=== PATIENT | female | born 1965 | race Caucasian/White ===

== ENCOUNTER 2019-04-07 06:51 | Outpatient (CLI) | payer MEDICARE, SELFPAY ==
--- NOTE | 2019-04-07 07:02 | USCV_ITS ---
Linda Frank Age: 53 Gender: F : 1965 Exam Date: 04/07/2019 07:36 Ordering Phys: Maryan Altamirano MD ([email or web address]) Technologist: Kentrell Sheikh Exam Location: [facility] – [place] Indication: PVD, LOWER EXTREMITY CLAUDICATION RIGHT LEFT Brachial 81.00 mmHg Brachial 112.00 mmHg Pressure (mmHg) Waveform Pressure (mmHg) Waveform 136.00 MOTION PICTURE CAMERA LENS TECHNICIAN 125.00 116.00 DPA 128.00 1.21 Ankle/Brachial Index 1.14 115.00 Pre-Exercise Toe Pressure 124.00 1.00 Pre-Exercise Toe/Brachial Index 1.10 FINDINGS Normal resting ABIs bilaterally Normal resting TBIs bilaterally CONCLUSIONS No evidence of any significant arterial obstruction in the lower extremities, based on the above findings Dr Lars Moreland MD FAC (Electronically Signed) Final Date: 09 April 2019 18:21 S
--- NOTE | 2019-04-07 07:15 | USCV_ITS ---
Linda Frank Age: 53 Gender: F : 1965 Exam Date: 04/07/2019 07:10 Ordering Phys: Maryan Altamirano MD ([email or web address]) Technologist: Padmini Hope Exam Location: [facility] [place] Indication: HCM BP: / HR: 76 Rhythm: Sinus Technical Quality: Suboptimal MEASUREMENTS (Male / Female) Normal Values 2D ECHO LVOT Diameter 2.0 cm LV Ejection Fraction MOD 2C 78.0 % LV Ejection Fraction 2C AL 81.0 % LA Diameter 2.9 cm LA Width 2.7 cm LA Height 4.5 cm RA Width 2.4 cm RA Height 3.3 cm Aorta at Sinotubular Diameter 2.8 cm M-MODE LV Diastolic Diameter MM 3.8 cm 4.2 - 5.9 / 3.9 - 5.3 cm LV Systolic Diameter MM 1.9 cm LV Ejection Fraction MM Teich 82.5 % IVS Diastolic Thickness MM 1.4 cm 0.6 - 1.0 / 0.6 - 0.9 cm IVS Systolic Thickness MM 2.1 cm LVPW Diastolic Thickness MM 1.2 cm 0.6 - 1.0 / 0.6 - 0.9 cm LVPW Systolic Thickness MM 1.8 cm Aortic Annulus Diameter 2.8 cm LA Ao Ratio MM 1.1 MV E Point Septal Separation 0.4 cm DOPPLER AV Peak Velocity 178.0 cm/s LVOT Peak Velocity 271.0 cm/s AV Area Cont Eq vti 4.4 cm squared AV Area Cont Eq pk 4.9 cm squared MV Area PHT 2.8 cm squared Mitral E to A Ratio 1.3 MV E' Velocity 11.0 cm/s Mitral E to MV E' Ratio 9.8 Mitral E to LV E' Lateral Ratio 9.0 Mitral E to LV E' Septal Ratio 10.8 TV Peak E Velocity 74.0 cm/s Right Atrial Pressure 3.0 mmHg PV Peak Velocity 97.0 cm/s RV Acceleration Time 0.1 s RV Ejection Time 0.3 s RV AcT/ET 0.4 FINDINGS Left Ventricle Normal left ventricular cavity size. Severe left ventricular hypertrophy of concentric. No regional wall motion abnormalities. Left ventricular ejection fraction is estimated at 75 %. There appeared to be systolic anterior motion of mitral valve with LVOT obstruction.Grade I/IV diastolic dysfunction (abnormal relaxation filling pattern), normal to mildly elevated filling pressures. Baseline pressure gradient across the LVOT noted to be 29 mmHg at rest which increased to 64 mmHg with Valsalva. Right Ventricle The right ventricle is normal in size and function. Right Atrium The right atrium is normal in size. Left Atrium The left atrium is normal in size. Mitral Valve Mildly thickened mitral valve. No mitral valve stenosis. Mild mitral valve regurgitation directed posteriorly due to systolic anterior motion of anterior mitral valve leaflet. Aortic Valve Structurally normal aortic valve without significant sclerosis or stenosis. There is no aortic regurgitation. Tricuspid Valve Structurally normal tricuspid valve without significant stenosis or regurgitation. Pulmonary artery systolic pressure is normal. Pulmonic Valve Structurally normal pulmonic valve without significant stenosis. There is no pulmonic regurgitation. Pericardium Normal pericardium without effusion. Aorta Normal ascending aorta dimension. CONCLUSIONS 1-Normal left ventricular cavity size. Severe left ventricular hypertrophy of concentric. No regional wall motion abnormalities. Left ventricular ejection fraction is estimated at 75 %. There appeared to be systolic anterior motion of mitral valve with LVOT obstruction.Grade I/IV diastolic dysfunction (abnormal relaxation filling pattern), normal to mildly elevated filling pressures. Baseline pressure gradient across the LVOT noted to be 29 mmHg at rest which increased to 64 mmHg with Valsalva. 2-Mildly thickened mitral valve. No mitral valve stenosis. Mild mitral valve regurgitation directed posteriorly due to systolic anterior motion of anterior mitral valve leaflet. 3-Structurally normal aortic valve without significant sclerosis or stenosis. There is no aortic regurgitation. 4-Pulmonary artery systolic pressure is within normal limits. 5-Right atrial pressure is around 5 mm of mercury. 6- When compared to the prior echocardiogram dated 06/30/2017 there is severe left ventricle hypertrophy with systolic anterior motion of mitral valve resulting in LVOT obstruction as noted above. Maryan Altamirano MD (Electronically Signed) Final Date: 07 April 2019 11:57 S
[2019-04-07] MEDS: iohexol 350 mg/mL 100 mL Btl IV (08:19)
--- NOTE | 2019-04-07 08:30 | CT_ITS ---
WS: [id number] CTA THORACIC TECHNIQUE: Contrast enhanced CTA of the thoracic aorta with coronal and sagittal reformatted images a nd maximum intensity projection (MIP) images. CLINICAL INFORMATION: Severe claudication of right hand COMPARISON: CTA chest 3 DLP: 919.[address] scans at [facility] use at least one of these dose optimization techniques: automat ed exposure control; mA and/or kV adjustment per patient size (includes targeted exams where dose is matched to clinical indication); or iterative reconstruction. FINDINGS: Axillary to axillary bypass graft. No contrast visualized in the axillary bypass graft which is likel y occluded. Contrast is visualized in the right axillary and subclavian arteries. The left axillary a nd subclavian arteries appear patent. Severe stenosis at the innominate origin off the aortic arch. Innominate proximal to the carotid and subclavian bifurcation appears patent. Normal caliber thoracic aorta. Mild atheromatous disease descending thoracic aorta and upper abdomina l aorta. No mediastinal or hilar lymphadenopathy. Coronary calcification. Mild chronic emphysematous changes. No acute pulmonary infiltrates. Diffuse fatty infiltration liver. Hepatomegaly. Cholecystectomy clips. Adrenal glands are normal. Celiac and SMA origins appear patent . CT/CT angio chest [id number] IMPRESSION: 1. Axillary axillary bypass graft appears occluded. This is new since 2014. Khalil bclavian and axillary arteries appear patent bilaterally 2. High-grade stenosis proximal innominate artery just distal to the root orig in. Persistent flow in the innominate artery proximal to the bifurcation. 3. Mild chronic emphysematous changes. Both lungs are well aerated. 4. Hepatomegaly with diffuse fatty infiltration. 5. Cholecystectomy. 6. Normal caliber thoracic aorta.
== END 2019-04-07 06:52 | disposition home or self-care (01) ==
LOC: RAD 06:55
PROVIDERS: Family Provider Family Medicine; PCP Family Medicine; Visit Provider Internal Medicine Cardiovascular Disease
DX: I73.9 Peripheral vascular disease, unspecified (principal); I77.1 Stricture of artery; I42.1 Obstructive hypertrophic cardiomyopathy; J43.9 Emphysema, unspecified; K76.0 Fatty (change of) liver, not elsewhere classified; I34.0 Nonrheumatic mitral (valve) insufficiency; Z90.49 Acquired absence of other specified parts of digestive tract
CPT/HCPCS: 71275; 93306; 93922

== ENCOUNTER → 2019-04-13 12:32 | Outpatient (BNVA) | payer MEDICARE, SELFPAY | PROVIDERS: Family Provider Family Medicine; PCP Family Medicine; Visit Provider Nurse Practitioner Family | DX: T82.858A Stenosis of other vascular prosthetic devices, implants and grafts, initial encounter (principal); I73.9 Peripheral vascular disease, unspecified; X58.XXXA Exposure to other specified factors, initial encounter | CPT/HCPCS: 80048; 85025 ==

== ENCOUNTER → 2019-04-19 11:00 | Outpatient (BNVA) | payer MEDICARE, SELFPAY | PROVIDERS: Family Provider Family Medicine; PCP Family Medicine; Visit Provider Internal Medicine Cardiovascular Disease | DX: T82.858A Stenosis of other vascular prosthetic devices, implants and grafts, initial encounter (principal) | CPT/HCPCS: 85025 ==

== ENCOUNTER 2019-04-24 08:41 | Observation (INO) | payer MEDICARE, SELFPAY ==
[2019-04-24] VITALS (16 sets, daily range): BP systolic 81–122; BP diastolic 45–84; PULSE 67–78; RESP 15–21; TEMP 36.8; O2SAT 93; BMI 32.2
--- NOTE | 2019-04-24 09:15 | PC.NURSE ---
PATIENT STATES SHE HAS IBS AND HER BOWEL PATTERNS VARY DAY TO DAY.
--- NOTE | 2019-04-24 10:00 | XACV_ITS ---
Ht: 160 cm Wt: 83 kg BSA: 1.95 m2 Any Known Allergies: Other Gender: Female : 1965 Exam Type: Invasive Peripheral Vascular Procedure(s): Procedure Description: Peripheral Cath Diagnostic Procedure Procedure Description: Abdominal aortic angiography Procedure Description: Subclavian Angiography Procedure Description: Aortic Arch Angiography Exam Priority: Routine Conclusions Coronary angiogram #1 N ormal left main #2 LAD has luminal irregularities#3 LCx has luminal irregularities#4 RCA has luminal irregularities with 3 0% mid stenosis. Peripheral angiogramAortogram was performed showing normal ascending aortaRight innominate artery was selectively engaged which showed significant proximal 85-90% stenosis in the proximal segment.Abdominal aortogram 1- Abdominal aorta has luminal irregularity without significant stenosis or aneurysm. 2-Bilateral renal artery has no significant stenosis 3- right common iliac did not show any significant stenosis4- Left common ostial significant 80% stenosis. Significant 66 mm gradient across it was observed.Left leg peripheral angiogram most consistent with no significant stenosis in the left external/internal iliac artery, no significant stenosis in left common femoral, SFA, profunda, popliteal, tibioperoneal trunk arteries. 3 vessel runoff was noted below the knee however it appeared to me that posterior tibial is occluded in the proximal segment with reconstitute in the mid. 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 CT scan was consistent with occlusion of the graft. It is the reason she saw us. She is also giving history of shortness of breath and chest pressure for which she underwent left heart CATHETERIZATION. During the same angiogram abdominal aortic angiogram was noted with runoff due to lifestyle limiting claudication of the leg revealed left ostial common iliac significant disease. Recommendations Usual post catheterization care. Follow-up with Dr. Colon and Dr. Altamirano. We will discuss with Dr. Colon regarding percutaneous versus grafting. Hemodynamic Data Phase:Rest AO : 146.0 mmHg / 67.0 mmHg ( 97.0 mmHg ) @ 5:55:00 AM 144.0 mmHg / 66.0 mmHg ( 96.0 mmHg ) @ 5:55:00 AM 119.0 mmHg / 73.0 mmHg ( 95.0 mmHg ) @ 5:57:00 AM 75.0 mmHg / 61.0 mmHg ( 67.0 mmHg ) @ 6:33:00 AM 74.0 mmHg / 56.0 mmHg ( 71.0 mmHg ) @ 6:34:00 AM 136.0 mmHg / 59.0 mmHg ( 87.0 mmHg ) @ 6:36:00 AM Access Site Site: Right Femoral artery Sheath Size: 6 Fr Hemost... Success: Unsuccessful Site: Right Femoral artery Sheath Size: 6 Fr Hemost... Method: Manual Compression Hemost... Success: Successful Procedure Details Findings wire out. wire out. glidewire inserted. runoff of the left leg, 10mL/sec for a total of 30mL. [facility] time/date stamp having technical issues. All documentation and procedure done between 3789-3746 on 04-24-2019. Procedure Consent Obtained. Admit Source: In Patient. Pre-Procedure Time Out. Identified patient by full name and date of as verbalized by the patient/guarantor. Does the consent match the physician's order: Yes. Accurate & Complete Informed Consent: Yes. Inpatient/Outpatient History & Physical on Chart: Yes. If H&P is completed, is and addenduem needed: N/A; If yes, is the addendum complete: N/A. Visualize and Verify Site with Patient/Guarantor: N/A. Relevant Radiology Images available: N/A. Pre-op teaching completed and patient verbalized understanding. The risks, benefits, and alternatives of sedation and/or procedure were discussed by physician. The patient agrees to continue. Procedure started. Correct patient, site and procedure confirmed by cath team. PERRLA. Strong, equal hand barrel loader and cleaner bilaterally. Lungs clear x 5 lobes. IV Site on Arrival: 20 gauge in the left anticubital. Pre Procedural Pulses: bilateral dorsalis pedis was 1+. Pre Procedural Pulses: right posterior tibial was 1+. Pre Procedural Pulses: left posterior tibial was Doppled. Pre Procedural Pulses: right radial was Absent. Pre Procedural Pulses: left radial was 1+. Oxygen started at 2liters/min via nasal canula. bilateral groins was prepped with chloroprep then draped in the usual sterile fashion. Baseline sample Acquired. HR: 60 BPM. Physician notified. Physician arrived. Physician scrubbed in. Immediate Pre-Procedure Time Out. Correct Patient: Yes; Correct Procedure: Yes; Correct Site: Yes; Correct Patient Position: Yes; Correct Supplies: Yes; Dried Flammable Prep: Yes; Blood Products Available: N/A;. Lidocaine 1% infiltrated to the right groin. Arterial access obtained with micropuncture set. A 5 [place] citizen JL4 catheter in over wire. Multiple views taken of left coronary artery. Catheter out. A 5 [place] citizen JR4 catheter in over wire. EDP Sample taken: LV 121/-4,2; HR: 114 BPM; SpO2: 97%. Pullback taken: LV 147/-4,14; AO 146/67(97); Mean: 0mmHg, Peak to Peak: 0mmHg, SEP: 9sec/min; HR: 84 BPM; SpO2: 97%. Multiple views taken of right coronary artery. A 5 [place] citizen Angled Pig catheter in over wire. Aortic arch arteriogram performed in MAR @ 15 ml/sec for a total of 30 mL. A 6 [place] citizen Angled Pig catheter in over wire. Aortic arch arteriogram performed in MAR @ 20 ml/sec for a total of 40 mL. Abdominal aortogram performed in AP @ 10 mL/sec for a total of 30 mL. Sheath(s) removed and manual pressure held until hemostasis was achieved. Sterile 4x4 and Op-site applied to the puncture site. No oozing or hematoma noted. Post sheath removal instructions were given and the patient verbalized understanding. Post Procedure: Pulses reassessed and unchanged. PERRLA. Strong, equal hand barrel loader and cleaner bilaterally. No VTE prophylaxis required. Medication's Wasted: Heparin = 1000 units. Medication's Wasted: Other = versed 1 mg. Total IV fluids: 125 mL. Contrast type used: Visipaque 320 mgI/mL, 500 mL bottle. Contrast Material : Visipaque 322 ml. Complications: none. Estimated blood loss: 5mL-10mL. A Manual Compression was successful obtaining hemostatsis at the Right Femoral artery insertion site. 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 Procedure completed. Patient transferred by bed to 1st floor. Vital chart was stopped. Procedure Medications Start: 11:37 AM Stop: 11:37 AM Medication: Versed Amount: 1 mg Route: I.V. Start: 11:37 AM Stop: 11:37 AM Medication: Fentanyl Amount: 25 mcg Route: I.V. Start: 11:44 AM Stop: 11:44 AM Medication: Versed Amount: 1 mg Route: I.V. Start: 11:48 AM Stop: 11:48 AM Medication: Versed Amount: 1 mg Route: I.V. Start: 11:53 AM Stop: 11:53 AM Medication: Fentanyl Amount: 25 mcg Route: I.V. Start: 12:15 PM Stop: 12:15 PM Medication: Versed Amount: 1 mg Route: I.V. Start: 12:19 PM Stop: 12:19 PM Medication: Fentanyl Amount: 25 mcg Route: I.V. Start: 12:34 PM Stop: 12:34 PM Medication: Versed Amount: 1 mg Route: I.V. Start: 12:34 PM Stop: 12:34 PM Medication: Fentanyl Amount: 25 mcg Route: I.V. I, the attending physician, have reviewed and verified all procedure medications. Yes, all medications given per verbal order History/Risk Factors Hypertension: Yes Dyslipidemia: Yes Peripheral Arterial Disease (PAD): Yes Myocardial Infarction ([place]): No Obesity: No Renal Disease: No Tobacco Use: Current/Recent(w/in 1 year) Prior Interventions PCI: No CABG: No Valve Surgery: No Report Signatures Finalized by:Maryan Altamirano MD on 05/07/2019 7:35:21 PM
[2019-04-24] MEDS: diphenhydrAMINE 50 mg Capsule PO (10:08)
[2019-04-24] MEDS: amlodipine 5 mg Tablet 2.5 MG PO (14:52)
[2019-04-24] MEDS: pregabalin 50 mg Capsule PO ×2 (14:52→20:44)
[2019-04-24] MEDS: loratadine 10 mg Tablet PO (14:52)
[2019-04-24] MEDS: famotidine 20 mg Tablet PO (17:31)
== END 2019-04-24 20:52 | disposition home or self-care (01) ==
LOC: CSU 08:42
PROVIDERS: Admitting Provider Internal Medicine Cardiovascular Disease; Family Provider Family Medicine; PCP Family Medicine; Visit Provider Internal Medicine Cardiovascular Disease
DX: I73.9 Peripheral vascular disease, unspecified (principal); I77.1 Stricture of artery; I42.1 Obstructive hypertrophic cardiomyopathy; I10 Essential (primary) hypertension; F17.210 Nicotine dependence, cigarettes, uncomplicated; E78.5 Hyperlipidemia, unspecified
CPT/HCPCS: 36225; 36415; 75625; 93452; C1769; C1887; C1894; G0378; J1644; J2001; J2250; J3010; J7030; Q0163; Q9967

== ENCOUNTER 2019-05-03 08:00 | Outpatient (CLI) | payer MEDICARE, MEDICAID, SELFPAY | END 2019-05-03 09:00 | disposition home or self-care (01) | LOC: RAD 11-07 11:55 | PROVIDERS: PCP Family Medicine; Visit Provider Nurse Practitioner Family | DX: R25.2 Cramp and spasm (principal) | CPT/HCPCS: 80053; 83735 ==

== ENCOUNTER → 2019-06-26 11:40 | Outpatient (BNVA) | payer MEDICARE, SELFPAY | PROVIDERS: Family Provider Family Medicine; PCP Family Medicine; Visit Provider Family Medicine | DX: E03.9 Hypothyroidism, unspecified (principal); R10.2 Pelvic and perineal pain; G25.81 Restless legs syndrome; E11.9 Type 2 diabetes mellitus without complications; M62.838 Other muscle spasm | CPT/HCPCS: 81000; 84443 ==

== ENCOUNTER → 2019-07-20 14:11 | Outpatient (BNVA) | payer MEDICARE, MEDICAID, SELFPAY | PROVIDERS: Family Provider Family Medicine; PCP Family Medicine; Visit Provider Family Medicine | DX: E11.9 Type 2 diabetes mellitus without complications (principal); M62.838 Other muscle spasm; R31.9 Hematuria, unspecified | CPT/HCPCS: 80053; 81000; 81001; 87077; 87086; 87186 ==

== ENCOUNTER → 2019-08-18 12:44 | Outpatient (BNVA) | payer MEDICARE, MEDICAID, SELFPAY | PROVIDERS: Family Provider Family Medicine; PCP Family Medicine; Visit Provider Family Medicine | DX: R82.90 Unspecified abnormal findings in urine (principal) | CPT/HCPCS: 80053; 81000; 87077; 87086; 87186 ==

== ENCOUNTER → 2019-09-20 10:04 | Outpatient (BNVA) | payer MEDICARE, MEDICAID, SELFPAY | PROVIDERS: Family Provider Family Medicine; PCP Family Medicine; Visit Provider Family Medicine | DX: J44.9 Chronic obstructive pulmonary disease, unspecified (principal); I10 Essential (primary) hypertension; E11.59 Type 2 diabetes mellitus with other circulatory complications; R22.1 Localized swelling, mass and lump, neck; R74.8 Abnormal levels of other serum enzymes | CPT/HCPCS: 80053; 83036; 85025 ==

== ENCOUNTER → 2019-11-28 09:27 | Outpatient (BNVA) | payer MEDICARE, MEDICAID, SELFPAY | PROVIDERS: Family Provider Family Medicine; PCP Family Medicine; Visit Provider Nurse Practitioner Family | DX: Z11.59 Encounter for screening for other viral diseases (principal) | CPT/HCPCS: 87635 ==

== ENCOUNTER → 2019-12-27 09:28 | Outpatient (BNVA) | payer MEDICARE, MEDICAID, SELFPAY | PROVIDERS: Family Provider Family Medicine; PCP Family Medicine; Visit Provider Family Medicine | DX: E11.59 Type 2 diabetes mellitus with other circulatory complications (principal); I10 Essential (primary) hypertension; I70.8 Atherosclerosis of other arteries; E03.9 Hypothyroidism, unspecified; K21.9 Gastro-esophageal reflux disease without esophagitis; R53.83 Other fatigue; E55.9 Vitamin D deficiency, unspecified | CPT/HCPCS: 80048; 80061; 82652; 83036; 84443 ==

== ENCOUNTER → 2020-02-01 09:21 | Outpatient (BNVA) | payer MEDICARE, MEDICAID, SELFPAY | PROVIDERS: Family Provider Family Medicine; PCP Family Medicine; Visit Provider Family Medicine | DX: R30.0 Dysuria (principal); B37.3 Candidiasis of vulva and vagina; I70.8 Atherosclerosis of other arteries | CPT/HCPCS: 80053; 81000 ==

== ENCOUNTER → 2020-02-07 15:45 | Outpatient (BNVA) | payer MEDICARE, MEDICAID, SELFPAY | PROVIDERS: Family Provider Family Medicine; PCP Family Medicine; Referring Provider Family Medicine; Visit Provider Family Medicine | DX: B37.3 Candidiasis of vulva and vagina (principal); R30.0 Dysuria | CPT/HCPCS: 81000; 87086 ==

== ENCOUNTER → 2020-12-18 16:04 | Outpatient (BNVA) | payer MEDICARE, SELFPAY | PROVIDERS: Family Provider Family Medicine; PCP Family Medicine; Visit Provider Nurse Practitioner Family | DX: Z20.822 Contact with and (suspected) exposure to COVID-19 (principal) | CPT/HCPCS: 87635 ==

== ENCOUNTER → 2021-01-01 11:58 | Outpatient (BNVA) | payer MEDICARE, SELFPAY | PROVIDERS: Family Provider Family Medicine; PCP Family Medicine; Visit Provider Emergency Medicine | DX: J41.0 Simple chronic bronchitis (principal); J18.9 Pneumonia, unspecified organism | CPT/HCPCS: 71046 ==

== ENCOUNTER 2021-01-02 10:02 | Emergency (ER) | payer MEDICARE, SELFPAY ==
[2021-01-02 10:24] VITALS: BP 172/81; PULSE 74; RESP 19; TEMP 37.1; O2SAT 98; BMI 31.8
--- NOTE | 2021-01-02 10:53 | ED_ITS ---
HPI - COVID General: Chief Complaint: COVID symptoms Stated Complaint: states pneumonia : sent by PCP(Covid + 2 wks ago) Time Seen by Provider: 01/02/21 10:50 Triage information: Has fever, cough or shortness of breath . No known COVID + exposure last 14 days History of Present Illness: HPI Narrative: Patient with cough, patient thought she had pneumonia. Patient is on antibiotics and steroids. MD complaint: reported COVID exposure Prior covid testing: yes, results known COVID 19 common symptoms: positive chills, cough and non-productive cough; negative fever(s), productive cough, dyspnea, body aches, headache(s), throat pain, nasal congestion, nausea or vomiting COVID 19 other sytmptoms: negative chest pain Onset (ago): day(s) Severity: mild Pertinent comorbid conditions: diabetes, hypertension and COPD/respiratory disease Treatment prior to arrival: antibiotics, steroids and breathing treatments COVID Results: SARS-CoV-2 RNA (RT-PCR) Detected (NOT DETECTED) A 12/18/20 16:04 12/18/20 Review of Systems Const: Reports: chills; Denies: fever(s) or body aches Eyes: Denies: change in vision or blurry vision ENMT: Denies: throat pain or nasal congestion Card: Denies: chest pain or dyspnea on exertion Resp: Reports: non-productive cough and wheezing; Denies: dyspnea, productive cough or pain on inspiration GI: Denies: abdominal pain, nausea or vomiting Musc: Denies: extremity pain Skin/Breast: Denies: rash Neuro: Denies: headache(s) Psych: Denies: anxiety or depression Ko/Lymph: Denies: easy bruising PFSH ED PFSH: Medical History Bipolar affective disorder Bipolar II disorder Cholecystectomy planned Chronic migraine without aura COPD (chronic obstructive pulmonary disease) COVID-19 Diabetes Does not tolerate metfromin. FELIPA (generalized anxiety disorder) GERD (gastroesophageal reflux disease) HOCM (hypertrophic obstructive cardiomyopathy) HTN (hypertension) Hyperlipidemia Hypothyroidism Hypothyroidism (acquired) IBS (irritable bowel syndrome) Nicotine dependence, cigarettes, with other nicotine-induced disorders Obstructive sleep apnea (adult) (pediatric) PVD (peripheral vascular disease) Restless leg syndrome Subclavian arterial stenosis Surgical History H/O: hysterectomy History of colonoscopy (~2018) History of esophagogastroduodenoscopy (EGD) (~2014) Tubal ligation status Family History Mother Cancer Father Cancer Social History Smoking and tobacco status: current every day smoker cigarettes Packs smoked per day: 1 Quit status (tobacco): has tried quititng Second hand smoke exposure: No Alcohol intake: never Adopted: No Caregiver/support person: Yes Lives independently: Yes Household members: significant other Housing: House Marital status: Life Partner Highest education level completed: High School Graduate service: No Current occupational status: disabled Current occupational exposures/hazards: No Pets and animals: No History of recent travel: No Sexually active: Yes Current gender identity: Female Yary/Adventist: None Financial difficulty paying for basics: Decline to Answer Female Reproductive History: Spontaneous abortions: No Physical Exam Const: COMMON NORMALS: no acute distress, average body habitus and patient oriented x3 HENMT: COMMON NORMALS: normocephalic HEAD & SCALP: normal to inspection and normocephalic FACE & SINUS: normal facial exam Eye: COMMON NORMALS: conjunctivae normal GENERAL EYE: appearance normal, both eyes and all related structures CONJUNCTIVA: Yes conjunctivae normal Neck/C-Spine: COMMON NORMALS: no JVD Chest: COMMONS NORMALS: normal inspection of the chest Resp: COMMON NORMALS: normal respiratory effort AUSCULTATION: wheezes expiratory wheezes Cardio: COMMON NORMALS: no JVD, regular rate and regular rhythm RATE: regular rate RHYTHM: regular rhythm GI: COMMON NORMALS: Normal to inspection, nondistended, normoactive bowel sounds present Extremity: COMMON NORMALS: normal to inspection and full ROM Neuro: COMMON NORMALS: patient oriented x3 Course Vital Signs: Vital signs: Vital Signs Temperature 98.7 F 01/02/21 11:16 Pulse Rate 75 01/02/21 11:16 Respiratory Rate 19 H 01/02/21 11:16 Blood Pressure 149/80 01/02/21 11:16 Pulse Oximetry 95 01/02/21 11:16 MDM - COVID MDM Narrative: Medical decision making narrative: Patient seen in Covid waiting room. Patient had chest x-ray done [facility] yesterday showed pneumonitis. Patient thought she had pneumonia. Patient currently on steroids antibiotic breathing treatments plus her regular medications. Patient says she needs some to help her with her cough some to cut through the cough. Denies any shortness of breath chest pain fevers presently was tested for Covid - Covid was positive Patient did say she had Covid exposure and had Covid-like symptoms 2 weeks ago. Patient has no other complaints or problems presently patient in no acute distress. COVID Results: SARS-CoV-2 RNA (RT-PCR) Detected (NOT DETECTED) A 12/18/20 16:04 12/18/20 Discharge Plan Discharge Patient Disposition: Home Clinical Impression: Pneumonitis, Post-COVID chronic cough COPD (chronic obstructive pulmonary disease) Qualifiers: COPD type: chronic bronchitis Chronic bronchitis type: simple Qualified Code(s): J41.0 - Simple chronic bronchitis Condition: Stable Prescriptions: New Mucinex 1,200 mg tablet extended release 12hr 1,200 mg PO BID PRN (Reason: cough) Qty: 20 RF: 0 Tessalon Perles 100 mg capsule 100 mg PO TID PRN (Reason: cough) Qty: 20 RF: 0 No Action ibuprofen 600 mg tablet 600 mg PO Q6H PRNRF: 0 pregabalin 50 mg capsule 50 mg PO TID RF: 0 aspirin [Adult Low Dose Aspirin] 81 mg tablet,delayed release (DR/EC) 81 mg PO DAILY RF: 0 [id number] [Bromfed DM] 2-30-10 mg/5 mL syrup 7.5 ml PO Q6H PRN (Reason: cold symptoms) Qty: 160 RF: 0 dexamethasone 2 mg tablet 6 mg PO DAILY 8 Days Qty: 24 RF: 0 doxycycline hyclate 100 mg tablet 100 mg PO BID 10 Days Qty: 20 RF: 0 oxycodone-acetaminophen [Percocet] 10-325 mg tablet 1 tab PO Q6H PRN (Reason: Pain) RF: 0 oxycodone [OxyContin] 40 mg tablet,oral only,ext.rel.12 hr 40 mg PO Q12H RF: 0 loratadine [Allergy Relief (loratadine)] 10 mg tablet 10 mg PO DAILY RF: 0 cyclobenzaprine 10 mg tablet 10 mg PO .at bedtime 30 Days Qty: 30 RF: 2 albuterol sulfate [Ventolin HFA] 90 mcg/actuation HFA aerosol inhaler 1 inh INHALATION QID PRN (Reason: shortness of breath or wheezing) 30 Days Qty: 18 RF: 2 famotidine 40 mg tablet See Rx Instructions .ROUTE .COMPLEX Qty: 30 RF: 5 levothyroxine 25 mcg tablet See Rx Instructions .ROUTE .COMPLEX Qty: 30 RF: 5 atorvastatin 40 mg tablet 40 mg PO DAILY 30 Days Qty: 30 RF: 11 amlodipine 2.5 mg tablet 2.5 mg PO DAILY 30 Days Qty: 30 RF: 2 ropinirole 0.5 mg tablet See Rx Instructions PO BID 30 Days Qty: 90 RF: 2 nortriptyline 25 mg capsule 50 mg PO .at bedtime RF: 0 Vraylar 3 mg capsule 3 mg PO DAILY Qty: 30 RF: 2 venlafaxine [Effexor XR] 150 mg capsule,extended release 24hr 150 mg PO QAM Qty: 30 RF: 2 mupirocin 2 % ointment 1 applic topical BID Qty: 22 RF: 0 metoprolol succinate 50 mg tablet extended release 24 hr 50 mg PO BID Qty: 60 RF: 2 promethazine 25 mg tablet See Rx Instructions .ROUTE .COMPLEX Qty: 60 RF: 2 (DME) OneTouch Verio test strips Strip See Rx Instructions .ROUTE .MEDSUPPLY Qty: 100 RF: 0 cilostazol 50 mg tablet 50 mg PO BID Qty: 60 RF: 0 glipizide 5 mg tablet See Rx Instructions .ROUTE .COMPLEX Qty: 30 RF: 2 Discharge Orders: Discharge ED (Routine); Ordered 01/02/21 Ordered By: Mario Painter Referrals: Mack Olmos [Primary Care Provider] - Discharge Diet: Usual diet Discharge Activity: Increase activity as tolerated Patient Instructions: Viral Syndrome (ED), Safe Use of Cough and Cold Medicines (ED) Activity Restrictions/Additional Instructions: Follow-up with medical provider as directed. Take medications as prescribed. Return to the ER or your medical provider if condition worsens. Please read and understand discharge instructions. If any questions ask please. Coding Level of Care Code ED Repairer [employer] for [employer] Exam Comprehensive
[2021-01-02 11:15] VITALS: O2SAT 95
[2021-01-02 11:16] VITALS: BP 149/80; PULSE 75; RESP 19; TEMP 37.1; O2SAT 95
== END 2021-01-02 11:18 | disposition home or self-care (01) ==
PROVIDERS: Emergency Provider Nurse Practitioner Family; PCP Family Medicine
DX: J41.0 Simple chronic bronchitis (principal); U09.9 Post COVID-19 condition, unspecified; R05.9 Cough, unspecified; J18.9 Pneumonia, unspecified organism; Z79.82 Long term (current) use of aspirin; Z79.84 Long term (current) use of oral hypoglycemic drugs; E11.9 Type 2 diabetes mellitus without complications; I10 Essential (primary) hypertension; E78.5 Hyperlipidemia, unspecified; F17.210 Nicotine dependence, cigarettes, uncomplicated
CPT/HCPCS: 99281

== ENCOUNTER 2021-01-12 16:15 | Observation (INO) | payer MEDICARE, SELFPAY ==
[2021-01-12 16:26] VITALS: BP 152/79; PULSE 96; RESP 18; TEMP 36.9; O2SAT 97; BMI 32.9
--- NOTE | 2021-01-12 17:24 | XRR_ITS ---
PROCEDURE INFORMATION: Exam: XR Chest Exam date and time: 01/12/2021 5:24 PM Age: 55 years old Clinical indication: Shortness of breath; Chest pressure; Patient HX: Chest pain with SOB. Post covid exposure. ; Additional info: Dyspnea TECHNIQUE: Imaging protocol: XR of the chest. Views: 1 view. COMPARISON: CR XR chest 2V* [id number] 01/01/2021 12:11 PM FINDINGS: Lungs: Unremarkable. No consolidation. Pleural spaces: Unremarkable. No pleural effusion. No pneumothorax. Heart/Mediastinum: Unremarkable. No cardiomegaly. Bones/joints: Unremarkable. XR/XR chest 1V portable [id number] IMPRESSION: No acute findings. Radiation Dose CTDIVOL = (mGy): DLP = (mGy-cm)
--- NOTE | 2021-01-12 17:24 | ECG_ITS ---
[facility] Test Date: 2021-01-12 Pat Name: Linda Frank Department: Room: Gender: Female Fiscal Economist: : 1965 Requested By: Erica Raygoza Order Number: [id number] Sarika MD: Lars Moreland M.D. Measurements Intervals [place] Rate: 96 P: 66 TN: 129 QRS: 0 QRSD: 76 T: 70 QT: 340 QTc: 431 Interpretive Statements SINUS RHYTHM POSSIBLE LEFT ATRIAL ENLARGEMENT [-0.1mV P-WAVE IN V1/V2] MINIMAL ST DEPRESSION [0.025+ mV ST DEPRESSION] Compared to ECG 09/15/2018 19:30:08 ST (T wave) deviation now present Sinus bradycardia no longer present Electronically Signed On 01-12-2021 18:37:13 CDT by Lars Moreland M.D. [email or web address]
--- NOTE | 2021-01-12 18:22 | W.ED.GENADLT ---
HPI - General Adult General: Chief complaint: Shortness of Breath/Dyspnea Stated complaint: cp, elevated pulse Time Seen by Provider: 01/12/21 17:22 History of Present Illness: HPI narrative: 55F w/ hx of DM, HTN, aortic stent presenting to the ED with 1 day of dyspnea and chest pain. Patient denies any fever chills, nausea vomiting, reports significant pleuritic chest pain. She denies any shortness breath, palpitation, fever/chills, cough/runny nose sore throat. Patient has no abdominal complaints, no complaints at this time. No history of VTE. Patient noticed that her right leg appears to be more swollen for the last 3-month. Denies any trauma or fall or injuries to the leg. Onset: 1 day ago Duration: 1 day Location:home Severity:moderate Review of Systems Narrative: Constitutional: No fever, no chills. HEENT: No vision changes CV: +pleuritic chest pain, no palpitations PULM: no cough, +dyspnea GI: No abdominal pain, no N/V/D. : No dysuria MSKEL: No muscle pain SKIN: No new rashes, no lesions. NEURO: No headache, no focal weakness. HEME: No visible bruises PSYCH: Normal mood PFSH ED PFSH: Medical History (Updated 01/13/21 @ 13:00 by Michael Lino MD) Bipolar affective disorder Bipolar II disorder Bypass graft stenosis Subclavian artery Cholecystectomy planned Chronic migraine without aura COPD (chronic obstructive pulmonary disease) COVID COVID-19 Diabetes Does not tolerate metfromin. FELIPA (generalized anxiety disorder) GERD (gastroesophageal reflux disease) HOCM (hypertrophic obstructive cardiomyopathy) HTN (hypertension) Hyperlipidemia Hypothyroidism Hypothyroidism (acquired) IBS (irritable bowel syndrome) Nicotine dependence, cigarettes, with other nicotine-induced disorders Obstructive sleep apnea (adult) (pediatric) PVD (peripheral vascular disease) Restless leg syndrome Subclavian arterial stenosis Surgical History H/O: hysterectomy History of colonoscopy (~2018) History of esophagogastroduodenoscopy (EGD) (~2014) Tubal ligation status Family History Mother Cancer Father Cancer Social History Smoking and tobacco status: current every day smoker cigarettes Packs smoked per day: 1 Quit status (tobacco): has tried quititng Second hand smoke exposure: No Alcohol intake: never Adopted: No Caregiver/support person: Yes Lives independently: Yes Household members: significant other Housing: House Marital status: Life Partner Highest education level completed: High School Graduate service: No Current occupational status: disabled Current occupational exposures/hazards: No Pets and animals: No History of recent travel: No Sexually active: Yes Current gender identity: Female Yary/Hindu: None Financial difficulty paying for basics: Decline to Answer Female Reproductive History: Date of last menstrual period: 06/13/20 Spontaneous abortions: No Physical Exam Narrative: EXAM NARRATIVE: Head: Atraumatic Eyes: PERRL, conjunctiva without injection ENT: Mucous membrane moist NECK: Supple, ROM intact LUNGS: LCTAB, no crackles/rhonchi CV: RRR ABDOMEN: Soft, nontender in all quadrants EXTREMITY: Normal ROM, 1+ edema R ankle, no gaurav's sign SKIN: No rash or erythema NEURO: Awake and alert, no focal motor deficits PSYCH: Normal mood and affect Course Vital Signs: Vital signs: Vital Signs Temperature 98.9 F 01/13/21 14:20 Pulse Rate 74 01/13/21 14:20 Respiratory Rate 17 01/13/21 14:20 Blood Pressure 138/84 01/13/21 14:20 Pulse Oximetry 95 01/13/21 14:20 MDM - General Adult MDM Narrative: Medical decision making narrative: Patient is a 55-year-old male with history of aortic repair, hypertension, diabetes presenting to the emergency room with pleuritic chest pain x1 day. Patient has chronic 1+ edema in the right lower extremity. No homans' sign on exam. Rest of vitals within normal limit. Given findings and risk factors, will evaluate for ACS, PE, or other pulmonary pathologies at this time. EKG showing regular sinus rhythm at HT of 90 Normal axis. TWI in V1-V2, No ST elevations/depressions to suggest coronary occlusion. Normal AL, QRS, QT intervals. Last echo was was early 2019. CT negative for any dissection or PE. She will be admitted to hospital for chest pain workup. Lab Data: Labs: Lab Results 01/12/21 01/12/21 01/12/21 18:23 18:23 18:23 WBC 10.3 10^3/uL H 10 ^3/uL (4.0-10.0) RBC 5.52 10^6/uL H 10 ^6/uL (4.1-5.3) Hgb 14.2 g/dL g/dL (11.5-15.3) Hct 44.5 % % (37.0-47.0) MCV 80.6 fl L fl (81-99) MCH 25.7 pg L pg (28.0-34.0) MCHC 31.9 g/dL g/dL (30.0-36.0) RDW 21.1 % H % (12.1-15.1) Plt Count 297 10^3/cmm 10^3 /cmm (130-400) MPV 9.2 fL fL (7.4-10.4) Neut % (Auto) 54.7 % % Lymph % (Auto) 32.0 % % [place] % (Auto) 9.3 % % Eos % (Auto) 2.8 % % Baso % (Auto) 0.6 % % Neut # (Auto) 5.63 10^3/uL 10^3 /uL (1.8-7.7) Lymph # (Auto) 3.3 10^3/uL 10^3/ uL (0.8-4.8) [place] # (Auto) 1.0 10^3/uL H 10^ 3/uL (0.2-0.9) Eos # (Auto) 0.3 10^3/uL 10^3/ uL (0.0-0.8) Baso # (Auto) 0.1 10^3/uL 10^3/ uL (0.0-0.1) Nucleated RBC % (a uto) 0 % % Nucleated RBCs # 0.0 /100WBC /100W BC Sodium 137 mmol/L mmol/L (136-145) Potassium 4.3 mmol/L mmol/L (3.5-5.1) Chloride 102 mmol/L mmol/L (98-107) Carbon Dioxide 23 mmol/L mmol/L (22-29) Anion Gap 16.3 (5-19) BUN 11 mg/dL mg/dL (6-20) Creatinine 0.4 mg/dL L mg/dL (0.5-0.9) GFR Calculation 164.5 mL/min H mL /min (90-130) Glucose 305 mg/dL H mg/dL (65-115) Calculated Osmolal ity 295 mOsm/kg mOsm/ kg (285-295) Calcium 9.0 mg/dL mg/dL (8.5-10.5) Troponin T Baselin e 12 ng/L H ng/L (0-10) NT-Pro-B Natriuret Pep 125 pg/mL pg/mL (0-125) Imaging Data^: Other Imaging: Radiologist's impression: [facility] [facility].[place], [place] [address]OC Scan ReportSigned Patient: Linda Frank #: [id number]: 1965Acct#:[id number]/Sex: 55 / FADM Date: 01/12/21Loc: ERRoom/Bed:Attending Dr: Ordering Provider/Ordering MD: Erica Raygoza MD Date of Service: 01/12/21 Procedure(s): CT angio chest PE protcl [id number] Accession Number(s): [id number] Report Number: [id number] PROCEDURE INFORMATION: Exam: CTA Chest With Contrast Exam date and time: 01/12/2021 6:24 PM Age: 55 years old Clinical indication: Shortness of breath; Additional info: Rule out pe TECHNIQUE: Imaging protocol: Computed tomographic angiography of the chest with contrast. 3D rendering (Not supervised by radiologist): MIP and/or 3D reconstructed images were created by the technologist. Radiation optimization: All CT scans at this facility use at least one of these dose optimization techniques: automated exposure control; mA and/or kV adjustment per patient size (includes targeted exams where dose is matched to clinical indication); or iterative reconstruction. Contrast material: OMNIPAQUE 350; Contrast volume: 65 ml; Contrast route: INTRAVENOUS (IV); COMPARISON: CT angio chest [id number] 04/07/2019 8:27 AM RADIATION DOSE METRICS: Total DLP (mGy-cm): 1110.18 FINDINGS: Pulmonary arteries: Normal. No pulmonary emboli. Aorta: Unremarkable. No aortic aneurysm. No aortic dissection. Great vessels off aortic arch: There is a subclavian artery to subclavian artery tunneled arterial bypass graft in the anterior chest which does not opacify. Other arteries: Endovascular stent placement in the right brachiocephalic artery origin. Lungs: Unremarkable. No consolidation. No masses. Pleural spaces: Unremarkable. No pneumothorax. No pleural effusion. Heart: Unremarkable. No cardiomegaly. No pericardial effusion. Lymph nodes: Unremarkable. No enlarged lymph nodes. Liver: Hepatomegaly. Diffuse appendix steatosis. Gallbladder and bile ducts: Cholecystectomy. Bones/joints: Unremarkable. No acute fracture. Soft tissues: Unremarkable. Other findings: Moderate severity emphysema. CT/CT angio chest PE protcl [id number] IMPRESSION: Negative for pulmonary embolism. Radiation Dose CTDIVOL = (mGy): DLP = 1110.18 (mGy-cm) Dictated By:Angela Hammonds By:Angela Hammonds Date/Time:01/12/21 1908DD/ [address] [address]VNfx ReportSigned Patient: Linda Frank #: [id number]: 1965Acct#:[id number]/Sex: 55 / FADM Date: 01/12/21Loc: ERRoom/Bed:Attending Dr: Ordering Provider/Ordering MD: Erica Raygoza MD Date of Service: 01/12/21 Procedure(s): XR chest 1V portable [id number] Accession Number(s): [id number] Report Number: [id number] PROCEDURE INFORMATION: Exam: XR Chest Exam date and time: 01/12/2021 5:24 PM Age: 55 years old Clinical indication: Shortness of breath; Chest pressure; Patient HX: Chest pain with SOB. Post covid exposure. ; Additional info: Dyspnea TECHNIQUE: Imaging protocol: XR of the chest. Views: 1 view. COMPARISON: CR XR chest 2V* [id number] 01/01/2021 12:11 PM FINDINGS: Lungs: Unremarkable. No consolidation. Pleural spaces: Unremarkable. No pleural effusion. No pneumothorax. Heart/Mediastinum: Unremarkable. No cardiomegaly. Bones/joints: Unremarkable. XR/XR chest 1V portable [id number] IMPRESSION: No acute findings. Radiation Dose CTDIVOL = (mGy): DLP = (mGy-cm) Dictated By:Angela Hammonds By:Angela Hammonds Date/Time:01/12/211907DD/ 23 Discharge Plan Discharge Patient Disposition: Admitted As Inpatient Admit Provider: Cynthia Hayes Clinical Impression: Chest pain Condition: Stable Discharge Diet: Cardiac Discharge Activity: Resume usual activity Coding Level of Care Code ED Radio Board Operator Announcer for g Kathy
[2021-01-12 18:29] LABS: Basophils # 0.1 10^3/uL (0.0-0.1); Basophils % 0.6 %; Eosinophils # 0.3 10^3/uL (0.0-0.8); Eosinophils % 2.8 %; Hematocrit 44.5 % (37.0-47.0); Hemoglobin 14.2 g/dL (11.5-15.3); Lymphocytes # 3.3 10^3/uL (0.8-4.8); Mean Corpuscular HGB Conc 31.9 g/dL (30.0-36.0); Mean Corpuscular Hemoglobin 25.7 pg (28.0-34.0); Mean Corpuscular Volume 80.6 fl (81-99); Mean Platelet Volume 9.2 fL (7.4-10.4); Monocytes % 9.3 %; Neutrophils # 5.63 10^3/uL (1.8-7.7); Neutrophils % 54.7 %; Nucleated Red Blood Cells % 0 %; Platelet Count 297 10^3/cmm (130-400); Red Blood Count 5.52 10^6/uL (4.1-5.3); Red Cell Distribution Width 21.1 % (12.1-15.1); White Blood Count 10.3 10^3/uL (4.0-10.0)
[2021-01-12] MEDS: iohexol 350 mg/mL 100 mL Btl IV (18:51)
[2021-01-12 18:56] LABS: Troponin(5th) Baseline 12 ng/L (0-10)
[2021-01-12 19:02] VITALS: BP 146/109; PULSE 95; RESP 18; O2SAT 98
[2021-01-12 19:05] LABS: Anion Gap 16.3 (5-19); Blood Urea Nitrogen 11 mg/dL (6-20); Carbon Dioxide 23 mmol/L (22-29); Chloride 102 mmol/L (98-107); Glomerular Filtration Rate 164.5 mL/min (90-130); Glucose 305 mg/dL (65-115); NT Pro B Type Natriuretic Pept 125 pg/mL (0-125); Osmolality Calculated 295 mOsm/kg (285-295); Potassium 4.3 mmol/L (3.5-5.1); Sodium 137 mmol/L (136-145)
--- NOTE | 2021-01-12 19:24 | ECG_ITS ---
[facility] Test Date: 2021-01-12 Pat Name: Linda Frank Department: Room: Gender: Female Business Continuity Manager: : 1965 Requested By: Erica Raygoza Order Number: [id number] Sarika MD: Lars Moreland M.D. Measurements Intervals [place] Rate: 90 P: 55 VT: 134 QRS: -16 QRSD: 81 T: 60 QT: 358 QTc: 438 Interpretive Statements SINUS RHYTHM Compared to ECG 01/12/2021 16:40:09 ST (T wave) deviation no longer present Electronically Signed On 01-13-2021 23:51:55 CDT by Lars Moreland M.D. [id number]
[2021-01-12 20:16] VITALS: BP 176/104; PULSE 100; RESP 16; O2SAT 97
[2021-01-12 20:17] VITALS: BP 176/104; PULSE 100; RESP 16; TEMP 36.9; O2SAT 97
[2021-01-12 20:43] VITALS: PULSE 98
[2021-01-12 20:50] LABS: Troponin 5 2HR 11.54 ng/L (0-10)
[2021-01-12 20:51] VITALS: BMI 25.9
--- NOTE | 2021-01-12 20:56 | PC.NURSE ---
ADMIT NOTE Pt received to room from ER at 2039. Is alert and oriented. with pt and says ER Dr told them he will be able to stay with her tonight. Pt says she will go AMA if not. Charge nurse aware. Pt c/o having medial chest pain since yesterday but kept getting progressively worse. Says with exertion the pain goes through to her back otherwise no radiation. Also says the pain increases with deep breaths. Does say she has had some tingling//numbness in both arms. History of COVID in November. Has had some SOB since then. Also reports a dry cough. BP high on arrival to floor but pt says has not taken her evening meds. host hostess applied and is showing SR/ST. RN to complete admission assessment
[2021-01-12 20:59] LABS: Troponin 5 2HR Delta -0.46 ABS# (0-10)
[2021-01-12 21:02] VITALS: BP 174/118; PULSE 97; RESP 17; TEMP 36.6; O2SAT 98
[2021-01-13] VITALS (10 sets, daily range): BP systolic 126–176; BP diastolic 84–116; PULSE 70–90; RESP 17–18; TEMP 36.6–37.2; O2SAT 95–100
--- NOTE | 2021-01-13 00:05 | PM.HP ---
Providers/Chief Complaint Admitting Physician: Cynthia Hayse MD Primary Care Provider: Mack Olmos Chief Complaint: cp, elevated pulse History of Present Illness Linda Frank is a 55 year old female with PMH significant for left axillary to right axillary artery bypass about 7 years ago for right upper extremity claudication and 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 Recent h.o COVID 19 pneumonia on 12/18 s/p monoclonal Ab, one week of steroids ans abx at the time. recovered uneventfully. Presented to ER today with 2 day h/o left sided chest pain which is worse on deep inspiration, turning sides and any movement. no h/o associated nausea, vomiting, abdominal pain or diarrhea. No h/o arm pain. H/o COPD+ with chronic cough, not worsened over baseline. CXR today without consolidation or effusion. EKG without acute ST-T wave changes\. baseline troponin 12, 2 hr at 11.54, negative 2 hr delta. No recent chest wall trauma, no h/o lifting heavy weights. PMH of pancreatitis several years ago, unknown etiology at the time Review of Systems General: Reports: 10 or more systems reviewed and unremarkable except in HPI and below Const: Denies: fever(s), chills or body aches Eyes: Denies: change in vision, blurry vision or photophobia ENMT: Reports: hoarseness; Denies: throat pain, enlarged tonsils, odynophagia or nasal congestion Card: Denies: chest pain, palpitations, irregular heart rhythm, edema, swelling of feet/ankles, lightheadedness, pre-syncope, dyspnea on exertion or orthopnea Resp: Denies: dyspnea, productive cough, non-productive cough, wheezing, stridor, pain on inspiration, change in phlegm color, hemoptysis or chest congestion GI: Denies: abdominal pain, nausea, vomiting, hematemesis, coffee ground emesis, dysphagia, heartburn, diarrhea, constipation, GI cramping, change in stool character, hematochezia or melena : Denies: flank pain, difficulty voiding, dysuria, urinary frequency, urinary urgency, urinary hesitancy or hematuria Musc: Denies: neck pain, back pain, extremity pain, joint swelling, joint warmth or deformity Neuro: Denies: headache(s), numbness in extremities, weakness in extremities, sensory changes, difficulty walking, frequent falls, dizziness, vertigo, behavioral changes, Slurred speech present or seizure-like activity Psych: Denies: anxiety, depression, suicidal ideation or homicidal ideation Endo: Denies: polyuria, polydipsia, tired all the time, cold intolerance or hot flashes Ko/Lymph: Denies: easy bruising or easy bleeding Medications/Allergies Home Medications Medication Instructions Recorded Confirmed Last Taken Type oxycodone 40 mg tablet,crush 40 mg PO Q12H 03/29/19 01/12/21 01/12/21 08:00 History resistant,extended release 12 hr oxycodone-acetaminophen 10 mg-325 1 tab PO Q6H PRN 03/29/19 01/12/21 01/12/21 08:00 History mg tablet loratadine 10 mg tablet 10 mg PO DAILY tab 05/11/19 01/12/21 01/12/21 08:00 History cyclobenzaprine 10 mg tablet 10 mg PO .at bedtime 30 Days #30 07/20/19 01/12/21 Unknown Rx tab albuterol sulfate 90 mcg/actuation 1 inh INHALATION QID PRN 30 Days 09/20/19 01/12/21 01/12/21 08:00 Rx aerosol inhaler #18 gm aspirin 81 mg tablet,delayed 81 mg PO DAILY 09/27/19 01/12/21 01/12/21 08:00 History release ibuprofen 600 mg tablet 600 mg PO Q6H PRN 09/27/19 01/12/21 01/12/21 08:00 History pregabalin 50 mg capsule 50 mg PO TID 09/27/19 01/12/21 01/12/21 08:00 History famotidine 40 mg tablet See Rx Instructions .ROUTE 12/27/19 01/12/21 01/12/21 08:00 Rx .COMPLEX #30 tab levothyroxine 25 mcg tablet See Rx Instructions .ROUTE 12/27/19 01/12/21 01/12/21 08:00 Rx .COMPLEX #30 unknown measurement unit code: tablet atorvastatin 40 mg tablet 40 mg PO DAILY 30 Days #30 tab 02/01/20 01/12/21 01/12/21 08:00 Rx metoprolol succinate 50 mg 50 mg PO BID #60 tab 02/28/20 01/12/21 01/12/21 08:00 Rx tablet,extended release 24 hr amlodipine 2.5 mg tablet 2.5 mg PO DAILY 30 Days #30 tab 03/11/20 01/12/21 01/12/21 08:00 Rx promethazine 25 mg tablet See Rx Instructions .ROUTE 04/18/20 01/12/21 01/12/21 08:00 Rx .COMPLEX #60 tab blood sugar diagnostic #100 each 05/12/20 01/12/21 01/12/21 08:00 Rx cilostazol 50 mg tablet 50 mg PO BID #60 tab 05/29/20 01/12/21 Unknown Rx nortriptyline 25 mg capsule 50 mg PO .at bedtime [facility] 08/06/20 01/12/21 01/12/21 08:00 History cariprazine 3 mg capsule 3 mg PO DAILY #30 cap 08/10/20 01/12/21 Unknown Rx venlafaxine 150 mg 150 mg PO QAM #30 cap 08/10/20 01/12/21 01/12/21 08:00 Rx capsule,extended release 24 hr mupirocin 2 % topical ointment 1 applic TOPICAL BID #22 g 11/09/20 01/12/21 Unknown Rx oqjvpmffnojicwm-naymidppfdlrrfq-AT 7.5 ml PO Q6H PRN #160 ml 12/29/20 01/12/21 Unknown Rx 2 mg-30 mg-10 mg/5 mL oral syrup dexamethasone 2 mg tablet 6 mg PO DAILY 8 Days #24 tab 12/29/20 01/12/21 Unknown Rx doxycycline hyclate 100 mg tablet 100 mg PO BID 10 Days #20 tab 12/29/20 01/12/21 Unknown Rx benzonatate [Tessalon Perles] 100 mg PO TID PRN #20 cap 01/02/21 01/12/21 Unknown Rx guaifenesin [Mucinex] 1,200 mg PO BID PRN #20 tab 01/02/21 01/12/21 Unknown Rx glipizide 5 mg PO BID 01/12/21 01/12/21 01/12/21 08:00 History ropinirole 0.5 mg PO BEDTIME 01/12/21 01/12/21 01/12/21 08:00 History Allergies Allergy/AdvReac Type Severity Reaction Status Date / Time morphine Allergy Severe ADR-Agitate Verified 01/09/21 14:19 d quetiapine [From Seroquel] AdvReac Mild ADR-Halluci Verified 01/09/21 14:19 nating amitriptyline AdvReac Unknown ADR-Nightma Verified 01/09/21 14:19 re trazodone AdvReac ADR-Nightma Verified 01/09/21 14:19 re PFSH Acute PFSH: Medical History Bipolar affective disorder Bipolar II disorder Cholecystectomy planned Chronic migraine without aura COPD (chronic obstructive pulmonary disease) COVID COVID-19 Diabetes Does not tolerate metfromin. FELIPA (generalized anxiety disorder) GERD (gastroesophageal reflux disease) HOCM (hypertrophic obstructive cardiomyopathy) HTN (hypertension) Hyperlipidemia Hypothyroidism Hypothyroidism (acquired) IBS (irritable bowel syndrome) Nicotine dependence, cigarettes, with other nicotine-induced disorders Obstructive sleep apnea (adult) (pediatric) PVD (peripheral vascular disease) Restless leg syndrome Subclavian arterial stenosis Surgical History H/O: hysterectomy History of colonoscopy (~2018) History of esophagogastroduodenoscopy (EGD) (~2014) Tubal ligation status Family History Mother Cancer Father Cancer Social History Smoking and tobacco status: current every day smoker cigarettes Packs smoked per day: 1 Quit status (tobacco): has tried quititng Second hand smoke exposure: No Alcohol intake: never Adopted: No Caregiver/support person: Yes Lives independently: Yes Household members: significant other Housing: House Marital status: Life Partner Highest education level completed: High School Graduate service: No Current occupational status: disabled Current occupational exposures/hazards: No Pets and animals: No History of recent travel: No Sexually active: Yes Current gender identity: Female Yary/Episcopalian: None Financial difficulty paying for basics: Decline to Answer Female Reproductive History: Date of last menstrual period: 06/13/20 Spontaneous abortions: No Vitals/I&O/Wt Last Vital Signs Temp 98.2 F 01/13/21 04:00 Pulse 82 01/13/21 04:00 Resp 18 01/13/21 04:00 BP 176/116 01/13/21 04:00 Pulse Ox 96 01/13/21 04:00 01/12/21 01/12/21 01/13/21 14:59 22:59 06:59 Intake Total 200 / 200 Output Total 620 / 620 Balance -420 / -420 Weight last 48 hrs Weight 64.41 kg Weight 81.647 kg Physical Exam Narrative: EXAM NARRATIVE: General: No acute distress, AO x3 HEENT: PERRLA, pupils bilaterally equal and reactive, pallors not present Chest: Normal vesicular breath sounds, no added sounds, equal good air entry bilaterally. reproducible chest wall tenderness over 9th and 10th ribs anteriorly CVS: S1-S2 regular, no murmurs, no tachycardia, no gallops, no rubs Abdomen: Soft, nontender, no organomegaly, bowel sounds present Neuro: No focal deficits, no facial deformity, AO x3, power 5/5 in all limbs Extremities: B/L pulses intact upper extremities , known to have up to 50mmhg discrepancy between sytolic BP in both arms Data : 01/12/21 18:23 01/12/21 18:23 Attestation for Other Data: I personally reviewed and interpreted the following: Other data: Ordering Provider/Ordering MD: Erica Raygoza MD Date of Service: 01/12/21 Procedure(s): CT angio chest PE protcl [id number] Accession Number(s): [id number] Report Number: [id number] PROCEDURE INFORMATION: Exam: CTA Chest With Contrast Exam date and time: 01/12/2021 6:24 PM Age: 55 years old Clinical indication: Shortness of breath; Additional info: Rule out pe TECHNIQUE: Imaging protocol: Computed tomographic angiography of the chest with contrast. 3D rendering (Not supervised by radiologist): MIP and/or 3D reconstructed images were created by the technologist. Radiation optimization: All CT scans at this facility use at least one of these dose optimization techniques: automated exposure control; mA and/or kV adjustment per patient size (includes targeted exams where dose is matched to clinical indication); or iterative reconstruction. Contrast material: OMNIPAQUE 350; Contrast volume: 65 ml; Contrast route: INTRAVENOUS (IV); COMPARISON: CT angio chest [id number] 04/07/2019 8:27 AM RADIATION DOSE METRICS: Total DLP (mGy-cm): 1110.18 FINDINGS: Pulmonary arteries: Normal. No pulmonary emboli. Aorta: Unremarkable. No aortic aneurysm. No aortic dissection. Great vessels off aortic arch: There is a subclavian artery to subclavian artery tunneled arterial bypass graft in the anterior chest which does not opacify. Other arteries: Endovascular stent placement in the right brachiocephalic artery origin. Lungs: Unremarkable. No consolidation. No masses. Pleural spaces: Unremarkable. No pneumothorax. No pleural effusion. Heart: Unremarkable. No cardiomegaly. No pericardial effusion. Lymph nodes: Unremarkable. No enlarged lymph nodes. Liver: Hepatomegaly. Diffuse appendix steatosis. Gallbladder and bile ducts: Cholecystectomy. Bones/joints: Unremarkable. No acute fracture. Soft tissues: Unremarkable. Other findings: Moderate severity emphysema. CT/CT angio chest PE protcl [id number] IMPRESSION: Negative for pulmonary embolism. Radiation Dose CTDIVOL = (mGy): DLP = 1110.18 (mGy-cm) A&P Assessment and plan (1) Chest pain: left sided chest pain with reproducible chest wall tenderness on exam EKG without acute ST-T wave changes, trop baseline 12, 2 hr at 11, negative delta at 2hrs. Pending 6 hr troponin to r/o ACS CTA negative for PE No symptoms of arm claudication at this time Reproducible tenderness on exam, suspect pain may be musculoskeletal in nature, may be related to chronic cough NO rib fractures or other bony lesions noted on CT chest Continue home dose of opiates, toradol 15mg IVP x 1 , lidocaine patch locally No abdominal symptoms at this time. Status: Acute Attestations Medical Necessity Statement*: observation admission, anticipate less than 48 hrs admission for evaluation of chest pain Coding Level of Care Code Acute Caul Fat Puller for [facility] Diagnoses Chest pain R07.9
--- NOTE | 2021-01-13 01:14 | ECG_ITS ---
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 Measurements Intervals [place] Rate: 71 P: 46 NV: 129 QRS: -17 QRSD: 83 T: 53 QT: 389 QTc: 424 Interpretive Statements SINUS RHYTHM Compared to ECG 01/12/2021 19:04:03 No significant changes Electronically Signed On 01-13-2021 23:54:18 CDT by Lars Moreland M.D. [email or web address] Medicalholmes county jo[facility] pome[facility] memorial hospitalPraekelt Foundation/store/OM/[id number]
[2021-01-13] MEDS: lidocaine 5% Patch 1 PATCH TOPICAL (01:23)
[2021-01-13] MEDS: ketorolac 30 mg/mL INJ 15 MG IVP (01:24)
--- NOTE | 2021-01-13 01:27 | PC.NURSE ---
ORDERS Dr Hayes in to see pt. Verbal orders for Lidocaine patch and dose of IV Toradol given. Lidocaine patch was placed to left rib cage area under breast where most of pts pain/tenderness is located. RN gave dose of IV Toradol
[2021-01-13 01:38] LABS: Troponin 5 6HR 12.87 ng/L (0-10); Troponin 5 6HR Delta 0.87 ng/L (0-12)
[2021-01-13] MEDS: lidocaine 2% viscous 15 ML, aluminum-mag hydrox-simethicon 30 ML, sucralfate oral liq 1 GM PO (04:40)
[2021-01-13] MEDS: cyclobenzaprine 10 mg Tablet PO (04:41)
[2021-01-13] MEDS: labetalol 5 mg/mL SDV 20mL 10 MG IVP (04:53)
--- NOTE | 2021-01-13 05:32 | PC.NURSE ---
SHIFT SUMMARY Has rested since admission. manager monitoring showing SR. Stated pain was better this morning after having the IV Toradol and Lidocaine patch placed. BP was increased again this morning after getting up to the bathroom. Received a one time dose of IV Labatelol and was good with recheck. Also received a one time GI cocktail dose.
[2021-01-13] MEDS: venlafaxine ER (24HR) 150 mg Capsule PO (05:53)
[2021-01-13] MEDS: levothyroxine 25 mcg Tablet PO (05:53)
[2021-01-13 06:51] LABS: Lipase 21 U/L (13-60)
[2021-01-13 08:10] LABS: Glucose Point of Care 238 mg/dL (70-110)
--- NOTE | 2021-01-13 09:48 | PC.CHAP ---
Pastoral Care Encounter/Spiritual Assessment Type of Contact [] Declined major sales associate visit [] Patient/Family/Request visit [] Outpatient visit [] Follow-up visit [] Physician referral [] Code/Alert [x] Routine visit [] Staff referral [] Actively dying [] Patient sleeping [] Family support [] [] Out of room [] Palliative care [] [] Receiving care in room [] Pre-surgical visit [] Trauma [] Long length of stay [] ICU visit [] Other: Relational/Emotional Strength [x] Patient feels connected with others/family/visitors/staff [] Distress [] Loneliness/isolation [] Abandonment Spirituality of Patient [x] Person of Yary [] Attends [facility] of their Yary [x] Believes in Prayer [] Reads Bible or Advent materials [] There are Spiritual issues to be addressed Heat Reader Interventions [x] Prayer []x Active listening [x] Non-anxious presence [] Spiritual/emotional support [] Crisis/trauma care [] Spiritual counseling [] Bereavement support [] Provided bereavement packet [] Provided Bible/devotional materials [] Provided toy/stuffed animal, coloring book to patient or family member [] Provided Communion [] Anointing/[place] [] Salvation [x] Completed spiritual assessment [] Other: Impact on Illness or Injury [] Angry [] Fearful [] Anxious [] Often cries [] Exhaustion [] Unable to work [] Unable to attend mu-ism [] Unable to walk/stand [] Unable to read [] Unable to drive [] Unable to eat/drink [] Unable to sleep [] Unable to be with family [] Patient intubated [] Other: Summary Time spent with patient 15 min
[2021-01-13] MEDS: metoprolol succinate ER (24 HR) 50 mg Tablet PO (10:15)
[2021-01-13] MEDS: atorvastatin 40 mg Tablet PO (10:15)
[2021-01-13] MEDS: amlodipine 5 mg Tablet PO (10:16)
[2021-01-13] MEDS: aspirin 81 mg EC Tablet PO (10:16)
[2021-01-13] MEDS: oxyCODONE-APAP 10-325 mg Tablet 1 TAB PO (10:20)
[2021-01-13] MEDS: pregabalin 100 mg Capsule PO (10:22)
[2021-01-13 11:45] LABS: Glucose Point of Care 273 mg/dL (70-110)
--- NOTE | 2021-01-13 12:56 | P.DS_ITS ---
Discharge Providers Date of Admission: 01/12/21 19:37 Date of Discharge: January 13, 2021 Attending Provider at Admission: Cynthia Hayes MD Attending Provider at Discharge: Michael Lino MD Primary Care Provider: Mack Olmos Diagnoses at Discharge Discharge Diagnosis (1) Atypical chest pain: Status: Acute (2) HOCM (hypertrophic obstructive cardiomyopathy): Status: Acute (3) Bypass graft stenosis: Status: Acute Permanent problem details: Subclavian artery (4) Subclavian arterial stenosis: Status: Acute (5) FELIPA (generalized anxiety disorder): Status: Acute Reason for Visit Reason for Visit: cp, elevated pulse Hospital Course Hospital Course Linda Frank is a 55 year old female with PMH significant for HOCM, hypertension, peripheral vascular disease with left axillary to right axillary artery bypass about 7 years ago for right upper extremity claudication and 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 Recent h.o COVID 19 pneumonia on 12/18 s/p monoclonal Ab, one week of steroids ans abx at the time. recovered uneventfully. She also has history of bipolar disorder, generalized anxiety disorder, pancreatitis. She presented to the ER on January 13 with complaint of pain retrosternal on left side for last 2 days worsening with deep inspiration radiating to back, turning sides and any movement. Pain was reproduced reducible to deep palpation. Patient was admitted to the hospital for further evaluation of atypical chest pain. Patient's troponin cycle remained negative, lipase came back normal. On admission patient's blood pressure was mildly elevated which was treated with adjustment of antihypertensives. Patient's pain is most likely musculoskeletal/costochondritis secondary to recent COVID-19 pneumonia versus possible hypertensive urgency in setting of HOCM. Patient did not have any further pain during hospitalization. She is been discharged in hemodynamically stable condition with further adjustment of antihypertensives. She is advised to check her blood pressure twice daily for next 1 week and follow-up with her primary care provider for further adjustment of antihypertensives if needed. She is advised to continue doing incentive spirometry. Physical Exam Narrative: EXAM NARRATIVE: General: No acute distress, AO x3 HEENT: PERRLA, pupils bilaterally equal and reactive, pallors not present Chest: Normal vesicular breath sounds, no added sounds, equal good air entry bilaterally. reproducible chest wall tenderness over 9th and 10th ribs anteriorly CVS: S1-S2 regular, soft ejection systolic murmur radiating to apex present at aortic area, no tachycardia, no gallops, no rubs Abdomen: Soft, nontender, no organomegaly, bowel sounds present Neuro: No focal deficits, no facial deformity, AO x3, power 5/5 in all limbs Extremities: B/L pulses intact upper extremities , known to have up to 50mmhg discrepancy between sytolic BP in both arms Discharge Data Data Completed and Pending: Completed Studies During Hospitalization Category Date Time Status CT angio chest PE protcl [id number] Urge nt Cat Scan 01/12/21 18:24 Completed XR chest 1V [place] ble [id number] Urgent Exams 01/12/21 17:24 Completed Labs from last 24 hours 01/13/21 01/13/21 01/13/21 11:22 08:08 05:42 WBC RBC Hgb Hct MCV MCH MCHC RDW Plt Count MPV Neut % (Auto) Lymph % (Auto) Richardson % (Auto) Eos % (Auto) Baso % (Auto) Neut # (Auto) Lymph # (Auto) Richardson # (Auto) Eos # (Auto) Baso # (Auto) Nucleated RBC % (a uto) Nucleated RBCs # Sodium Potassium Chloride Carbon Dioxide Anion Gap BUN Creatinine GFR Calculation Glucose POC Glucose 273 H 238 H Calculated Osmolal ity Calcium Troponin T Baselin e Troponin T 120 Min [place] Delta Troponin T Troponin T Hi Sens 6Hr Troponin T Hi Sens 6Hr Delta NT-Pro-B Natriuret Pep Lipase 21 01/13/21 01/12/21 01/12/21 00:40 20:14 18:23 WBC RBC Hgb Hct MCV MCH MCHC RDW Plt Count MPV Neut % (Auto) Lymph % (Auto) Richardson % (Auto) Eos % (Auto) Baso % (Auto) Neut # (Auto) Lymph # (Auto) Richardson # (Auto) Eos # (Auto) Baso # (Auto) Nucleated RBC % (a uto) Nucleated RBCs # Sodium Potassium Chloride Carbon Dioxide Anion Gap BUN Creatinine GFR Calculation Glucose POC Glucose Calculated Osmolal ity Calcium Troponin T Baselin e 12 H Troponin T 120 Min [place] 11.54 H Delta Troponin T -0.46 L Troponin T Hi Sens 6Hr 12.87 H Troponin T Hi Sens 6Hr Delta 0.87 NT-Pro-B Natriuret Pep Lipase 01/12/21 01/12/21 18:23 18:23 WBC 10.3 H RBC 5.52 H Hgb 14.2 Hct 44.5 MCV 80.6 L MCH 25.7 L MCHC 31.9 RDW 21.1 H Plt Count 297 MPV 9.2 Neut % (Auto) 54.7 Lymph % (Auto) 32.0 Richardson % (Auto) 9.3 Eos % (Auto) 2.8 Baso % (Auto) 0.6 Neut # (Auto) 5.63 Lymph # (Auto) 3.3 Richardson # (Auto) 1.0 H Eos # (Auto) 0.3 Baso # (Auto) 0.1 Nucleated RBC % (a uto) 0 Nucleated RBCs # 0.0 Sodium 137 Potassium 4.3 Chloride 102 Carbon Dioxide 23 Anion Gap 16.3 BUN 11 Creatinine 0.4 L GFR Calculation 164.5 H Glucose 305 H POC Glucose Calculated Osmolal ity 295 Calcium 9.0 Troponin T Baselin e Troponin T 120 Min [place] Delta Troponin T Troponin T Hi Sens 6Hr Troponin T Hi Sens 6Hr Delta NT-Pro-B Natriuret Pep 125 Lipase Addt'l Data from Hospital Stay: Laboratory Results WBC 10.3 10^3/uL (4.0 -10.0) H 01/12/21 18:23 RBC 5.52 10^6/uL (4.1 -5.3) H 01/12/21 18:23 Hgb 14.2 g/dL (11.5-1 5.3) 01/12/21 18:23 Hct 44.5 % (37.0-47.0 ) 01/12/21 18:23 MCV 80.6 fl (81-99) L 01/12/21 18:23 MCH 25.7 pg (28.0-34. 0) L 01/12/21 18:23 MCHC 31.9 g/dL (30.0-3 6.0) 01/12/21 18:23 RDW 21.1 % (12.1-15.1 ) H 01/12/21 18:23 Plt Count 297 10^3/cmm (130 -400) 01/12/21 18:23 MPV 9.2 fL (7.4-10.4) 01/12/21 18:23 Neut % (Auto) 54.7 % 01/12/21 18:23 Lymph % (Auto) 32.0 % 01/12/21 18:23 Richardson % (Auto) 9.3 % 01/12/21 18:23 Eos % (Auto) 2.8 % 01/12/21 18:23 Baso % (Auto) 0.6 % 01/12/21 18:23 Neut # (Auto) 5.63 10^3/uL (1.8 -7.7) 01/12/21 18:23 Lymph # (Auto) 3.3 10^3/uL (0.8- 4.8) 01/12/21 18:23 Richardson # (Auto) 1.0 10^3/uL (0.2- 0.9) H 01/12/21 18:23 Eos # (Auto) 0.3 10^3/uL (0.0- 0.8) 01/12/21 18:23 Baso # (Auto) 0.1 10^3/uL (0.0- 0.1) 01/12/21 18:23 Nucleated RBC % (a uto) 0 % 01/12/21 18:23 Nucleated RBCs # 0.0 /100WBC 01/12/21 18:23 Sodium 137 mmol/L (136-1 45) 01/12/21 18:23 Potassium 4.3 mmol/L (3.5-5 .1) 01/12/21 18:23 Chloride 102 mmol/L (98-10 7) 01/12/21 18:23 Carbon Dioxide 23 mmol/L (22-29) 01/12/21 18:23 Anion Gap 16.3 (5-19) 01/12/21 18:23 BUN 11 mg/dL (6-20) 01/12/21 18:23 Creatinine 0.4 mg/dL (0.5-0. 9) L 01/12/21 18:23 GFR Calculation 164.5 mL/min (90- 130) H 01/12/21 18:23 Glucose 305 mg/dL (65-115 ) H 01/12/21 18:23 POC Glucose 273 mg/dL (70-110 ) H 01/13/21 11:22 Calculated Osmolal ity 295 mOsm/kg (285- 295) 01/12/21 18:23 Calcium 9.0 mg/dL (8.5-10 .5) 01/12/21 18:23 Troponin T Baselin e 12 ng/L (0-10) H 01/12/21 18:23 Troponin T 120 Min [place] 11.54 ng/L (0-10) H 01/12/21 20:14 Delta Troponin T -0.46 ABS# (0-10) L 01/12/21 20:14 Troponin T Hi Sens 6Hr 12.87 ng/L (0-10) H 01/13/21 00:40 Troponin T Hi Sens 6Hr Delta 0.87 ng/L (0-12) 01/13/21 00:40 NT-Pro-B Natriuret Pep 125 pg/mL (0-125) 01/12/21 18:23 Lipase 21 U/L (13-60) 01/13/21 05:42 Impressions Chest X-Ray 01/12/21 17:24 IMPRESSION: No acute findings. Radiation Dose CTDIVOL = (mGy): DLP = (mGy-cm) Chest CTA 01/12/21 18:24 IMPRESSION: Negative for pulmonary embolism. Radiation Dose CTDIVOL = (mGy): DLP = 1110.18 (mGy-cm) Vitals: Last Vital Signs Temp 98.9 F 01/13/21 11:22 Pulse 74 01/13/21 11:22 Resp 17 01/13/21 11:22 BP 138/84 01/13/21 11:22 Pulse Ox 95 01/13/21 11:22 Discharge Plan Discharge Patient Disposition: Home Condition: Stable Prescriptions: New amlodipine 5 mg Tablet 5 mg PO DAILY 30 Days Qty: 30 RF: 0 Continued ibuprofen 600 mg tablet 600 mg PO Q6H PRN (Reason: Pain) RF: 0 pregabalin 50 mg capsule 50 mg PO TID RF: 0 aspirin [Adult Low Dose Aspirin] 81 mg tablet,delayed release (DR/EC) 81 mg PO DAILY RF: 0 mkytgrmcldvpzgm-ocxkiqahm-DT [Bromfed DM] 2-30-10 mg/5 mL syrup 7.5 ml PO Q6H PRN (Reason: cold symptoms) Qty: 160 RF: 0 oxycodone-acetaminophen [Percocet] 10-325 mg tablet 1 tab PO Q6H PRN (Reason: Pain) RF: 0 oxycodone [OxyContin] 40 mg tablet,oral only,ext.rel.12 hr 40 mg PO Q12H RF: 0 loratadine [Allergy Relief (loratadine)] 10 mg tablet 10 mg PO DAILY RF: 0 cyclobenzaprine 10 mg tablet 10 mg PO .at bedtime 30 Days Qty: 30 RF: 2 albuterol sulfate [Ventolin HFA] 90 mcg/actuation HFA aerosol inhaler 1 inh INHALATION QID PRN (Reason: shortness of breath or wheezing) 30 Days Qty: 18 RF: 2 famotidine 40 mg tablet See Rx Instructions .ROUTE .COMPLEX Qty: 30 RF: 5 levothyroxine 25 mcg tablet See Rx Instructions .ROUTE .COMPLEX Qty: 30 RF: 5 atorvastatin 40 mg tablet 40 mg PO DAILY 30 Days Qty: 30 RF: 11 nortriptyline 25 mg capsule 50 mg PO .at bedtime RF: 0 Vraylar 3 mg capsule 3 mg PO DAILY Qty: 30 RF: 2 venlafaxine [Effexor XR] 150 mg capsule,extended release 24hr 150 mg PO QAM Qty: 30 RF: 2 mupirocin 2 % ointment 1 applic topical BID Qty: 22 RF: 0 metoprolol succinate 50 mg tablet extended release 24 hr 50 mg PO BID Qty: 60 RF: 2 promethazine 25 mg tablet See Rx Instructions .ROUTE .COMPLEX Qty: 60 RF: 2 (DME) OneTouch Verio test strips Strip See Rx Instructions .ROUTE .MEDSUPPLY Qty: 100 RF: 0 cilostazol 50 mg tablet 50 mg PO BID Qty: 60 RF: 0 Mucinex 1,200 mg tablet extended release 12hr 1,200 mg PO BID PRN (Reason: cough) Qty: 20 RF: 0 benzonatate [Tessalon Perles] 100 mg capsule 100 mg PO TID PRN (Reason: cough) Qty: 20 RF: 0 ropinirole 0.5 mg tablet 0.5 mg PO BEDTIME RF: 0 glipizide 5 mg tablet 5 mg PO BID RF: 0 Discontinued dexamethasone 2 mg tablet 6 mg PO DAILY 8 Days Qty: 24 RF: 0 doxycycline hyclate 100 mg tablet 100 mg PO BID 10 Days Qty: 20 RF: 0 amlodipine 2.5 mg tablet 2.5 mg PO DAILY 30 Days Qty: 30 RF: 2 Discharge Orders: Discharge Order (Routine); Ordered 01/13/21 Ordered By: Michael Lino Referrals: Mack Olmos [Primary Care Provider] - 7-10 days Discharge Diet: Cardiac Discharge Activity: Resume usual activity Patient Instructions: Opioid Safety Activity Restrictions/Additional Instructions: Your blood pressure medications have been increased. Amlodipine has been increased to 5 mg daily. Do not take dexamethasone and doxycycline anymore. Please maintain a blood pressure diary by checking blood pressures twice daily at home and follow-up with a primary care provider within next 1 week for further adjustment of antihypertensives. Please continue to do incentive spirometry as discussed in detail. Discharge Attestations Time Spent in Discharge Care*: greater than 30 min Specific Discharge Activities: educating patient, educating and/or supporting family/caregiver, discussing with case reviewer/social workers/dc planners, documenting/other paperwork and evaluating patient/reviewing data Status at Discharge: Cognitive status at discharge: cognitively intact , Behavioral status at discharge: cooperative , Functional status at discharge: independent ambulation Overall status at discharge: patient is back to baseline Quality Metrics Clinical Quality Measures During this hospital stay, did patient experience: None Coding Level of Care Code Acute Chg FW DC note Diagnoses Atypical chest pain R07.89 HOCM (hypertrophic obstructive cardiomyopathy) I42.1 Bypass graft stenosis T82.858A Subclavian arterial stenosis I77.1 FELIPA (generalized anxiety disorder) F41.1
[2021-01-13] MEDS: insulin lispro 100 unit/1 mL SUBCUT (13:21)
--- NOTE | 2021-01-13 17:56 | PC.RESP ---
Smoking Cessation and Pulmonary Rehab information sent to patient.
--- NOTE | 2021-01-15 14:06 | PC.SOCIAL ---
both numbers listed are non working numbers. unable to do discharge follow up call.
== END 2021-01-13 14:21 | disposition home or self-care (01) ==
LOC: ER 19:17 → MEDSURG 19:38
PROVIDERS: Admitting Provider Student in an Organized Health Care Education/Training Program; Emergency Provider Emergency Medicine; PCP Family Medicine; Visit Provider Student in an Organized Health Care Education/Training Program
DX: R07.89 Other chest pain (principal); I42.1 Obstructive hypertrophic cardiomyopathy; T82.858A Stenosis of other vascular prosthetic devices, implants and grafts, initial encounter; Y83.8 Other surgical procedures as the cause of abnormal reaction of the patient, or of later complication, without mention of misadventure at the time of the procedure; I77.1 Stricture of artery; I10 Essential (primary) hypertension; F41.1 Generalized anxiety disorder; F31.9 Bipolar disorder, unspecified; E11.9 Type 2 diabetes mellitus without complications; J44.9 Chronic obstructive pulmonary disease, unspecified; E03.9 Hypothyroidism, unspecified; E78.5 Hyperlipidemia, unspecified; G47.33 Obstructive sleep apnea (adult) (pediatric); I73.9 Peripheral vascular disease, unspecified; K21.9 Gastro-esophageal reflux disease without esophagitis; G25.81 Restless legs syndrome; R60.0 Localized edema; F17.210 Nicotine dependence, cigarettes, uncomplicated; Z79.84 Long term (current) use of oral hypoglycemic drugs; Z79.891 Long term (current) use of opiate analgesic; Z79.82 Long term (current) use of aspirin; Z86.16 Personal history of COVID-19
CPT/HCPCS: 36415; 36416; 71045; 71275; 80048; 82962; 83690; 83880; 84484; 85025; 93005; 96374; 96375; 99285; G0378; J1815; J1885; J3490; Q9967

== ENCOUNTER 2021-07-13 15:35 | Emergency (ER) | payer MEDICARE, MEDICAID, SELFPAY ==
[2021-07-13 15:50] VITALS: BP 105/59; PULSE 97; RESP 20; TEMP 36.8; O2SAT 98; BMI 33.8
--- NOTE | 2021-07-13 18:21 | XRR_ITS ---
PROCEDURE INFORMATION: Exam: XR Chest Exam date and time: 07/13/2021 10:29 PM Age: 56 years old Clinical indication: Dyspnea; Additional info: SOB TECHNIQUE: Imaging protocol: XR of the chest. Views: 1 view. COMPARISON: CR XR chest 1V portable [id number] 01/12/2021 5:42 PM FINDINGS: Lungs: Mild atelectasis versus early infiltrate at the right lung base. The lungs are otherwise clear. Pleural spaces: No pleural effusion. No pneumothorax. Heart/Mediastinum: No cardiomegaly. Bones/joints: Unremarkable. XR/XR chest 1V portable [id number] IMPRESSION: 1. Mild atelectasis versus early infiltrate at the right lung base. This appears new when compared to 01/12/2021. 2. The lungs are otherwise clear.
[2021-07-13 22:25] VITALS: BP 135/82; PULSE 64; O2SAT 98
--- NOTE | 2021-07-13 22:27 | W.ED.SOB ---
Documented by User: ASHLI Randolph 07/13/21 23:32 HPI - SOB/Dyspnea General: Chief Complaint: Shortness of Breath/Dyspnea Stated Complaint: SOB, Last checked in the 80s Time Seen by Provider: 07/13/21 22:22 History of Present Illness: HPI Narrative: Patient states that she is had episodes today where her oxygen level dropped in 80s. Patient recently discharged from [facility] yesterday with diagnosed acute bronchitis. Patient currently taking antibiotics. Does have an inhaler at home. Patient been waiting room approximately 7 hours without any difficulty breathing at all. Vital signs are stable. Associated symptoms: Deny abdominal pain, chest pain, fever(s), nausea or vomiting Review of Systems Const: Denies: fever(s), chills or body aches Eyes: Denies: eye discomfort ENMT: Denies: throat pain Card: Denies: chest pain Resp: Reports: dyspnea (Had ox level dropped couple times at home down the 80s.) GI: Denies: abdominal pain, nausea or vomiting Skin/Breast: Denies: rash Neuro: Denies: headache(s) Psych: Denies: depression or suicidal ideation [facility] ED PFSH: Medical History (Updated 07/13/21 @ 22:36 by ASHLI Randolph) Altered mental status Bipolar affective disorder Bipolar II disorder Bypass graft stenosis Subclavian artery Cholecystectomy planned Chronic migraine without aura COPD (chronic obstructive pulmonary disease) COVID COVID-19 Diabetes Does not tolerate metfromin. FELIPA (generalized anxiety disorder) GERD (gastroesophageal reflux disease) Hallucinations HOCM (hypertrophic obstructive cardiomyopathy) HTN (hypertension) Hyperlipidemia Hypothyroidism Hypothyroidism (acquired) Hypoxia IBS (irritable bowel syndrome) Nicotine dependence, cigarettes, with other nicotine-induced disorders Obstructive sleep apnea (adult) (pediatric) PVD (peripheral vascular disease) Restless leg syndrome Subclavian arterial stenosis Surgical History H/O: hysterectomy History of colonoscopy (~2018) History of esophagogastroduodenoscopy (EGD) (~2014) Tubal ligation status Family History Mother Cancer Father Cancer Social History Smoking and tobacco status: current every day smoker cigarettes Packs smoked per day: 1 Quit status (tobacco): has tried quititng Second hand smoke exposure: No Alcohol intake: never Adopted: No Caregiver/support person: Yes Lives independently: Yes Household members: significant other Housing: House Marital status: Life Partner Highest education level completed: High School Graduate service: No Current occupational status: disabled Current occupational exposures/hazards: No Pets and animals: No History of recent travel: No Sexually active: Yes Current gender identity: Female Yary/Orthodox: None Financial difficulty paying for basics: Decline to Answer Female Reproductive History: Date of last menstrual period: 06/13/20 Spontaneous abortions: No Physical Exam Const: COMMON NORMALS: no acute distress, patient oriented x3 and alert HENMT: COMMON NORMALS: normocephalic and external ears normal HEAD & SCALP: normocephalic EXTERNAL EAR: Yes external ears normal Eye: COMMON NORMALS: EOMs intact bilaterally Neck/C-Spine: COMMON NORMALS: no JVD Resp: COMMON NORMALS: normal respiratory effort and No use of accessory muscles Cardio: COMMON NORMALS: no JVD GI: INSPECTION: Yes normal to inspection Extremity: COMMON NORMALS: normal to inspection and full ROM Neuro: COMMON NORMALS: patient oriented x3 SENSORIUM/ORIENTATION: Yes alert Psych: COMMON NORMALS: mental status grossly normal Skin: COMMON NORMALS: no rashes or lesions noted GENERAL SKIN EXAM: no rashes or lesions noted Course Vital Signs: Vital signs: Vital Signs Temperature 98.3 F 07/13/21 15:50 Pulse Rate 64 07/13/21 22:25 Respiratory Rate 20 H 07/13/21 15:50 Blood Pressure 135/82 07/13/21 22:25 Pulse Oximetry 98 07/13/21 22:25 MDM - SOB/Dyspnea Medical Decision Making Patient states she had a couple low O2 sat readings at home today. Patient diagnosed from a [facility] yesterday. I reviewed notes from [facility] she was diagnosed with hypoxia and acute bronchitis and no significant abnormalities were found. Patient was placed on antibiotics. Patient was instructed in pulse ox usage. Patient said she only had those events when she lays down but when she is up move around and sitting up which her pulse ox is fine. Chest x-ray is negative for any concerning findings here. Might be some atelectasis compared to one that was done 8 months ago. Patient waiting room for quite a while today and her sats maintained when checked. O2 sat was 99% in vertical flow. Patient in no distress. Patient complains about pain from fibromyalgia. She denies any cough fever or chills. Lab Data Labs/Radiology: Radiology Impressions Chest X-Ray 07/13/21 18:21 IMPRESSION: 1. Mild atelectasis versus early infiltrate at the right lung base. This appears new when compared to 01/12/2021. 2. The lungs are otherwise clear. Discharge Plan Discharge Patient Disposition: Home Clinical Impression: Bronchitis Condition: Stable Prescriptions: No Action ibuprofen 600 mg tablet 600 mg PO Q6H PRN (Reason: Pain) 0RF aspirin [Adult Low Dose Aspirin] 81 mg tablet,delayed release (DR/EC) 81 mg PO DAILY 0RF pregabalin 50 mg capsule 100 mg PO TID 0RF amlodipine 5 mg tablet 5 mg PO DAILY 0RF diclofenac potassium 50 mg tablet 50 mg PO TID PRN0RF divalproex 125 mg tablet,delayed release (DR/EC) 125 mg PO TID 0RF omeprazole 40 mg capsule,delayed release(DR/EC) 40 mg PO DAILY 0RF loratadine [Allergy Relief (loratadine)] 10 mg tablet 10 mg PO DAILY 0RF albuterol sulfate [Ventolin HFA] 90 mcg/actuation HFA aerosol inhaler 1 inh INHALATION QID PRN (Reason: shortness of breath or wheezing) 30 Days Qty: 18 2RF levothyroxine 25 mcg tablet See Rx Instructions .ROUTE .COMPLEX Qty: 30 5RF Dose Instruction: TAKE 1 TABLET BY MOUTH DAILY Rx Instructions: TAKE 1 TABLET BY MOUTH DAILY atorvastatin 40 mg tablet 40 mg PO DAILY 30 Days Qty: 30 11RF nortriptyline 25 mg capsule 50 mg PO .at bedtime 0RF Vraylar 3 mg capsule 3 mg PO DAILY Qty: 30 2RF lisinopril-hydrochlorothiazide 10-12.5 mg tablet 1 tab PO DAILY 0RF Januvia 100 mg tablet 100 mg PO DAILY 0RF tvbmrqhe-urgxgjnvh-IH 3.5-10,000-1 mg/mL-unit/mL-% drops,suspension 3 drp otic (ear) Q8H 7 Days Qty: 10 0RF methocarbamol 750 mg tablet 750 mg PO TID Qty: 20 0RF Laxative PO 0RF omeprazole 20 mg capsule,delayed release(DR/EC) 20 mg PO ONCE Qty: 30 0RF ondansetron 4 mg tablet,disintegrating 4 mg PO Q8H 4 Days Qty: 12 0RF [id number]-blcdeimhz-RQ [Bromfed DM] 2-30-10 mg/5 mL syrup 7.5 ml PO Q6H PRN (Reason: cold symptoms) Qty: 160 0RF doxycycline hyclate 100 mg tablet 100 mg PO BID 10 Days Qty: 20 0RF guaifenesin 600 mg tablet extended release 12hr 600 mg PO Q12H Qty: 20 0RF Rx Instructions: with plenty of water prednisone 20 mg tablet 20 mg PO DAILY 5 Days Qty: 5 0RF Rx Instructions: start this medicine on metoprolol succinate 50 mg tablet extended release 24 hr 50 mg PO BID Qty: 60 2RF promethazine 25 mg tablet See Rx Instructions .ROUTE .COMPLEX Qty: 60 2RF Dose Instruction: TAKE ONE TABLET BY MOUTH TWICE A DAY NEEDED FOR NAUSEA Rx Instructions: TAKE ONE TABLET BY MOUTH TWICE A DAY NEEDED FOR NAUSEA (DME) OneTouch Verio test strips Strip See Rx Instructions .ROUTE .MEDSUPPLY Qty: 100 0RF Rx Instructions: ONCE DAILY; MAY TEST UP TO BID IF NOT FEELING GOOD glipizide 5 mg tablet 5 mg PO BID 0RF Discharge Orders: Discharge ED (Routine); Ordered 07/13/21 Ordered By: Mario Painter Referrals: Mack Olmos [Primary Care Provider] - Discharge Diet: Usual diet Discharge Activity: Increase activity as tolerated Patient Instructions: Acute Bronchitis (ED), Pulse Oximetry (ED) Activity Restrictions/Additional Instructions: Follow-up with primary care at [facility] tomorrow. Continue present medications. Coding Level of Care Code ED Extruder Operator Helper for Chg Fwd Exam Comprehensive Documented by User: Andrés Giles DO 04/25/22 01:24 HPI - SOB/Dyspnea General: Chief Complaint: Shortness of Breath/Dyspnea Stated Complaint: SOB, Last checked in the 80s Time Seen by Provider: 07/13/21 22:22 [facility] ED PFSH: Medical History (Updated 07/13/21 @ 22:36 by ASHLI Randolph) Altered mental status Bipolar affective disorder Bipolar II disorder Bypass graft stenosis Subclavian artery Cholecystectomy planned Chronic migraine without aura COPD (chronic obstructive pulmonary disease) COVID COVID-19 Diabetes Does not tolerate metfromin. FELIPA (generalized anxiety disorder) GERD (gastroesophageal reflux disease) Hallucinations HOCM (hypertrophic obstructive cardiomyopathy) HTN (hypertension) Hyperlipidemia Hypothyroidism Hypothyroidism (acquired) Hypoxia IBS (irritable bowel syndrome) Nicotine dependence, cigarettes, with other nicotine-induced disorders Obstructive sleep apnea (adult) (pediatric) PVD (peripheral vascular disease) Restless leg syndrome Subclavian arterial stenosis Surgical History H/O: hysterectomy History of colonoscopy (~2018) History of esophagogastroduodenoscopy (EGD) (~2014) Tubal ligation status Family History Mother Cancer Father Cancer Social History Smoking and tobacco status: current every day smoker cigarettes Packs smoked per day: 1 Quit status (tobacco): has tried quititng Second hand smoke exposure: No Alcohol intake: never Adopted: No Caregiver/support person: Yes Lives independently: Yes Household members: significant other Housing: House Marital status: Life Partner Highest education level completed: High School Graduate service: No Current occupational status: disabled Current occupational exposures/hazards: No Pets and animals: No History of recent travel: No Sexually active: Yes Current gender identity: Female Yary/Orthodox: None Financial difficulty paying for basics: Decline to Answer Course Vital Signs: Vital signs: Vital Signs Temperature 98.3 F 07/13/21 15:50 Pulse Rate 64 07/13/21 22:25 Respiratory Rate 20 H 07/13/21 15:50 Blood Pressure 135/82 07/13/21 22:25 Pulse Oximetry 98 07/13/21 22:25 MDM - SOB/Dyspnea Medical Decision Making Patient states she had a couple low O2 sat readings at home today. Patient diagnosed from a [facility] yesterday. I reviewed notes from [facility] she was diagnosed with hypoxia and acute bronchitis and no significant abnormalities were found. Patient was placed on antibiotics. Patient was instructed in pulse ox usage. Patient said she only had those events when she lays down but when she is up move around and sitting up which her pulse ox is fine. Chest x-ray is negative for any concerning findings here. Might be some atelectasis compared to one that was done 8 months ago. Patient waiting room for quite a while today and her sats maintained when checked. O2 sat was 99% in vertical flow. Patient in no distress. Patient complains about pain from fibromyalgia. She denies any cough fever or chills. This patient was originally seen by ASHLI Guerra.? I agree with his history, evaluation, and treatment. Lab Data Labs/Radiology: Radiology Impressions Chest X-Ray 07/13/21 18:21 IMPRESSION: 1. Mild atelectasis versus early infiltrate at the right lung base. This appears new when compared to 01/12/2021. 2. The lungs are otherwise clear. Discharge Plan Discharge Patient Disposition: Home Clinical Impression: Bronchitis Condition: Stable Prescriptions: No Action ibuprofen 600 mg tablet 600 mg PO Q6H PRN (Reason: Pain) 0RF aspirin [Adult Low Dose Aspirin] 81 mg tablet,delayed release (DR/EC) 81 mg PO DAILY 0RF pregabalin 50 mg capsule 100 mg PO TID 0RF amlodipine 5 mg tablet 5 mg PO DAILY 0RF diclofenac potassium 50 mg tablet 50 mg PO TID PRN0RF divalproex 125 mg tablet,delayed release (DR/EC) 125 mg PO TID 0RF omeprazole 40 mg capsule,delayed release(DR/EC) 40 mg PO DAILY 0RF loratadine [Allergy Relief (loratadine)] 10 mg tablet 10 mg PO DAILY 0RF albuterol sulfate [Ventolin HFA] 90 mcg/actuation HFA aerosol inhaler 1 inh INHALATION QID PRN (Reason: shortness of breath or wheezing) 30 Days Qty: 18 2RF levothyroxine 25 mcg tablet See Rx Instructions .ROUTE .COMPLEX Qty: 30 5RF Dose Instruction: TAKE 1 TABLET BY MOUTH DAILY Rx Instructions: TAKE 1 TABLET BY MOUTH DAILY atorvastatin 40 mg tablet 40 mg PO DAILY 30 Days Qty: 30 11RF nortriptyline 25 mg capsule 50 mg PO .at bedtime 0RF Vraylar 3 mg capsule 3 mg PO DAILY Qty: 30 2RF lisinopril-hydrochlorothiazide 10-12.5 mg tablet 1 tab PO DAILY 0RF Januvia 100 mg tablet 100 mg PO DAILY 0RF hlkjllvh-tqcencdth-DJ 3.5-10,000-1 mg/mL-unit/mL-% drops,suspension 3 drp otic (ear) Q8H 7 Days Qty: 10 0RF methocarbamol 750 mg tablet 750 mg PO TID Qty: 20 0RF Laxative PO 0RF omeprazole 20 mg capsule,delayed release(DR/EC) 20 mg PO ONCE Qty: 30 0RF ondansetron 4 mg tablet,disintegrating 4 mg PO Q8H 4 Days Qty: 12 0RF xymoivygimoaixo-yrcphqhyk-[id number] [Bromfed DM] 2-30-10 mg/5 mL syrup 7.5 ml PO Q6H PRN (Reason: cold symptoms) Qty: 160 0RF doxycycline hyclate 100 mg tablet 100 mg PO BID 10 Days Qty: 20 0RF guaifenesin 600 mg tablet extended release 12hr 600 mg PO Q12H Qty: 20 0RF Rx Instructions: with plenty of water prednisone 20 mg tablet 20 mg PO DAILY 5 Days Qty: 5 0RF Rx Instructions: start this medicine on metoprolol succinate 50 mg tablet extended release 24 hr 50 mg PO BID Qty: 60 2RF promethazine 25 mg tablet See Rx Instructions .ROUTE .COMPLEX Qty: 60 2RF Dose Instruction: TAKE ONE TABLET BY MOUTH TWICE A DAY NEEDED FOR NAUSEA Rx Instructions: TAKE ONE TABLET BY MOUTH TWICE A DAY NEEDED FOR NAUSEA (DME) OneTouch Verio test strips Strip See Rx Instructions .ROUTE .MEDSUPPLY Qty: 100 0RF Rx Instructions: ONCE DAILY; MAY TEST UP TO BID IF NOT FEELING GOOD glipizide 5 mg tablet 5 mg PO BID 0RF Discharge Orders: Discharge ED (Routine); Ordered 07/13/21 Ordered By: Mario Painter Referrals: Mack Olmos [Primary Care Provider] - Discharge Diet: Usual diet Discharge Activity: Increase activity as tolerated Patient Instructions: Acute Bronchitis (ED), Pulse Oximetry (ED) Activity Restrictions/Additional Instructions: Follow-up with primary care at [facility] tomorrow. Continue present medications. Coding Level of Care Code ED Extruder Operator Helper for Bryant Fwjustine Exam Comprehensive
[2021-07-13] MEDS: predniSONE 20 mg Tablet 40 MG PO (22:44)
== END 2021-07-13 22:51 | disposition home or self-care (01) ==
PROVIDERS: Emergency Provider Nurse Practitioner Family; PCP Family Medicine
DX: J40 Bronchitis, not specified as acute or chronic (principal); F17.210 Nicotine dependence, cigarettes, uncomplicated; I10 Essential (primary) hypertension; E11.51 Type 2 diabetes mellitus with diabetic peripheral angiopathy without gangrene; Z79.82 Long term (current) use of aspirin; Z79.84 Long term (current) use of oral hypoglycemic drugs
CPT/HCPCS: 71045; 99283; J7512

== ENCOUNTER → 2021-10-06 15:32 | Outpatient (BNVA) | payer MEDICARE, MEDICAID, SELFPAY | PROVIDERS: PCP Family Medicine; Visit Provider Family Medicine | DX: I10 Essential (primary) hypertension (principal); E03.9 Hypothyroidism, unspecified; E11.59 Type 2 diabetes mellitus with other circulatory complications; J44.9 Chronic obstructive pulmonary disease, unspecified; E11.9 Type 2 diabetes mellitus without complications; F41.1 Generalized anxiety disorder; F31.81 Bipolar II disorder; K21.9 Gastro-esophageal reflux disease without esophagitis; R09.02 Hypoxemia; G47.33 Obstructive sleep apnea (adult) (pediatric); I73.9 Peripheral vascular disease, unspecified; F17.218 Nicotine dependence, cigarettes, with other nicotine-induced disorders; M25.50 Pain in unspecified joint; Z76.89 Persons encountering health services in other specified circumstances | CPT/HCPCS: 80053; 80061; 83036; 84439; 84443; 84481; 85025 ==

== ENCOUNTER → 2021-10-10 15:32 | Outpatient (BNVA) | payer MEDICARE, MEDICAID, SELFPAY | PROVIDERS: PCP Family Medicine; Visit Provider Emergency Medicine | DX: R39.9 Unspecified symptoms and signs involving the genitourinary system (principal) | CPT/HCPCS: 81000 ==

== ENCOUNTER → 2021-11-11 13:58 | Outpatient (BNVA) | payer MEDICARE, MEDICAID, SELFPAY | PROVIDERS: PCP Family Medicine; Visit Provider Family Medicine | DX: I10 Essential (primary) hypertension (principal); J44.9 Chronic obstructive pulmonary disease, unspecified; I70.8 Atherosclerosis of other arteries; R11.0 Nausea; G89.29 Other chronic pain; M25.50 Pain in unspecified joint; F31.81 Bipolar II disorder | CPT/HCPCS: 73562 ==

== ENCOUNTER → 2022-02-11 09:29 | Outpatient (BNVA) | payer MEDICARE, MEDICAID, SELFPAY | PROVIDERS: PCP Family Medicine; Visit Provider Family Medicine | DX: E03.9 Hypothyroidism, unspecified (principal); E11.59 Type 2 diabetes mellitus with other circulatory complications; E11.9 Type 2 diabetes mellitus without complications; I50.9 Heart failure, unspecified; I70.8 Atherosclerosis of other arteries; I10 Essential (primary) hypertension | CPT/HCPCS: 80048; 83036; 84443 ==

== ENCOUNTER → 2022-05-06 09:36 | Outpatient (BNVA) | payer MEDICARE, MEDICAID, SELFPAY | PROVIDERS: PCP Family Medicine; Visit Provider Family Medicine | DX: E03.9 Hypothyroidism, unspecified (principal); E11.59 Type 2 diabetes mellitus with other circulatory complications; I10 Essential (primary) hypertension; E11.9 Type 2 diabetes mellitus without complications; M54.50 Low back pain, unspecified | CPT/HCPCS: 80053; 83036; 84443 ==

== ENCOUNTER → 2022-06-24 10:57 | Outpatient (BNVA) | payer MEDICARE, MEDICAID, SELFPAY | PROVIDERS: PCP Family Medicine; Visit Provider Registered Nurse | DX: E11.59 Type 2 diabetes mellitus with other circulatory complications (principal); Z79.899 Other long term (current) drug therapy | CPT/HCPCS: 82306; 82607; 83036; 83540; 85025 ==

== ENCOUNTER → 2022-10-07 08:46 | Outpatient (BNVA) | payer MEDICARE, MEDICAID, SELFPAY | PROVIDERS: PCP Family Medicine; Visit Provider Family Medicine | DX: E11.59 Type 2 diabetes mellitus with other circulatory complications (principal); I10 Essential (primary) hypertension; E03.9 Hypothyroidism, unspecified | CPT/HCPCS: 80053; 80061; 84443 ==

== ENCOUNTER → 2022-10-12 09:49 | Outpatient (BNVA) | payer MEDICARE, MEDICAID, SELFPAY | PROVIDERS: PCP Family Medicine; Visit Provider Internal Medicine Cardiovascular Disease | DX: I11.0 Hypertensive heart disease with heart failure (principal); I50.22 Chronic systolic (congestive) heart failure; R00.1 Bradycardia, unspecified; Z87.898 Personal history of other specified conditions; R94.39 Abnormal result of other cardiovascular function study; I42.1 Obstructive hypertrophic cardiomyopathy; J43.9 Emphysema, unspecified; F17.210 Nicotine dependence, cigarettes, uncomplicated | CPT/HCPCS: 99205 ==

== ENCOUNTER → 2022-10-15 10:39 | Outpatient (BNVA) | payer MEDICARE, MEDICAID, OTHER, SELFPAY | PROVIDERS: PCP Family Medicine; Visit Provider Emergency Medicine | DX: R68.89 Other general symptoms and signs (principal); J10.1 Influenza due to other identified influenza virus with other respiratory manifestations | CPT/HCPCS: 87400; 87426 ==

== ENCOUNTER 2022-11-15 00:40 | Emergency (ER) | payer MEDICARE, MEDICAID, SELFPAY ==
[2022-11-15 00:55] VITALS: BP 145/80; PULSE 71; RESP 20; TEMP 36.8; O2SAT 96; BMI 36.6
[2022-11-15 01:11] VITALS: BP 115/70; PULSE 66; RESP 18; TEMP 37.2; O2SAT 96
[2022-11-15 01:26] LABS: Add Urine Culture? Yes; Add Urine Microscopic? YES; Bacteria Urine 3+ /hpf; Bilirubin Urine Neg (Negative); Blood Urine 2+ (Negative); Glucose Urine UA 4+ (Normal); Ketones Urine Negative (Negative); Leukocyte Esterase Urine Trace (Negative); Nitrate Urine Positive (Negative); Protein Urine Neg (Negative); RBC Urine 0-4 /hpf (0-2); Specific Gravity, Urine 1.005 (1.005-1.030); Squamous Epithelial Cell Urine 0-4 /hpf (0-5); Urine Appearance Clear (CLEAR); Urine Color Yellow (Yellow); Urobilinogen Urine Norm (Negative); WBC Urine 25-40 /hpf (0-5); pH Urine 6 (5-7)
[2022-11-15 01:30] LABS: Amphetamines Screen Urine Negative (Negative); Barbiturates Screen Urine Negative (Negative); Benzodiazepines Screen Urine Negative (Negative); Cocaine Screen Urine Negative (Negative); Opiate Screen Urine Negative (Negative); PCP Screen Urine Negative (Negative); THC Screen Urine Negative (Negative)
[2022-11-15 01:39] LABS: Basophils # 0.1 10^3/uL (0.0-0.1); Basophils % 0.6 %; Eosinophils # 0.3 10^3/uL (0.0-0.8); Eosinophils % 2.9 %; Hematocrit 38.1 % (36-47); Lymphocytes # 2.5 10^3/uL (0.8-4.8); Lymphocytes % 24.8 %; Mean Corpuscular HGB Conc 32.8 g/dL (30-55); Mean Corpuscular Hemoglobin 25.9 pg (27-33); Mean Platelet Volume 9.6 fL (7.4-10.4); Monocytes # 0.8 10^3/uL (0.2-0.9); Monocytes % 7.6 %; Neutrophils # 6.23 10^3/uL (1.8-7.7); Neutrophils % 62.9 %; Nucleated Red Blood Cells % 0 %; Platelet Count 309 10^3/cmm (157-399); Red Blood Count 4.82 10^6/uL (3.85-5.65); Red Cell Distribution Width 15.9 % (12.1-15.1); White Blood Count 9.91 10^3/uL (3.29-11.43)
--- NOTE | 2022-11-15 01:40 | ECG_ITS ---
[facility] Test Date: 2022-11-15 Pat Name: Linda Frank Department: Room: Gender: Female Applications Engineering Manager: : 1965 Requested By: Allison Barnard Order Number: [id number] Sarika MD: Edilberto Zarate M.D. Measurements Intervals [place] Rate: 67 P: 36 OH: 138 QRS: -7 QRSD: 85 T: 48 QT: 400 QTc: 425 Interpretive Statements SINUS RHYTHM Compared to ECG 01/13/2021 09:50:01 No significant changes Electronically Signed On 11-15-2022 15:16:10 CDT by Edilberto Zarate M.D. [id number]
[2022-11-15 01:41] LABS: Base Excess VBG 2.1 mmol/L (-3.0-3.0); Blood Gas Sample Site Not specified; Blood Gas Sample Type Venous; HCO3 VBG 27.1 mmol/L (24-28); PCO2 VBG 42.6 mmHg (41-51); PO2 VBG 45.7 mmHg (25-40); Venous Blood Gas Hematocrit 40.1 % (37-47); pH VBG 7.41 (7.32-7.42)
[2022-11-15 01:54] LABS: Erythrocyte Sedimentation Rate 35 mm/hr (0-15)
[2022-11-15 01:55] LABS: Troponin(5th) Baseline 7 ng/L (0-10)
[2022-11-15 02:01] LABS: Alanine Aminotransferase 57 U/L (0-33); Alkaline Phosphatase 147 U/L (35-105); Anion Gap 15.2 (5-19); Aspartate Amino Transferase 67 U/L (0-32); Blood Urea Nitrogen 19 mg/dL (6-20); C Reactive Protein 25.7 mg/L (0.0-4.9); Carbon Dioxide 27 mmol/L (22-29); Chloride 95 mmol/L (98-107); Glomerular Filtration Rate 102.3 mL/min (90-130); Glucose 389 mg/dL (65-115); Lipase 38 U/L (13-60); Osmolality Calculated 294 mOsm/kg (285-295); Potassium 4.2 mmol/L (3.5-5.1); Sodium 133 mmol/L (136-145); Total Bilirubin 0.2 mg/dL (0.15-1.2)
[2022-11-15 02:02] LABS: Lactic Sepsis W/Reflex 1.7 mmol/L (0.5-2.2)
[2022-11-15 02:21] LABS: Ketone (Acetest) Serum Negative (Negative)
[2022-11-15 02:56] LABS: Glucose Point of Care 324 mg/dL (70-110)
[2022-11-15] MEDS: cefTRIAXone 1,000 MG in sodium chloride 0.9% (plus) 50 ML 100 MG IV (03:28)
[2022-11-15] MEDS: insulin regular-human 100 units/1 mL 8 UNIT IVP (03:28)
--- NOTE | 2022-11-15 03:45 | ED_ITS ---
HPI - Recheck/Abnormal Lab/Rx General: Chief Complaint: Recheck/Abnormal Lab/Rx Stated Complaint: HYPERGLYCEMIA Time Seen by Provider: 11/15/22 01:03 Source: patient Mode of arrival: EMS Limitations: no limitations History of Present Illness: Patient presents emergency department today brought by EMS for evaluation and treatment of elevated blood sugars, dizziness, and increased fatigue. Patient reports she has been extremely fatigued for several days. She states all she does is sleep. She admits that her family suffered a loss of her 18-year-old grandson just recently and patient is extremely tearful in the room. She states she has been having some difficulty dealing with it and, primary care doctor had given her some hydroxyzine for anxiety. Patient states her family thinks that the medication is causing her symptoms but, she states she has been taking it as prescribed. Patient admits that during this time she has not had much desire to eat or drink much. She does have diabetes and comes in tonight as she had a blood sugar reading in the 400s. Patient admitted she took some of her own medication at home prior to EMS arrival to treat her blood sugars. Review of Systems General: Reports: 10 or more systems reviewed and unremarkable except in HPI and below PFSH ED PFSH: Medical History Bipolar affective disorder Bipolar II disorder Bypass graft stenosis Subclavian artery Chronic migraine without aura COPD (chronic obstructive pulmonary disease) COVID-19 Diabetes Does not tolerate metfromin. FELIPA (generalized anxiety disorder) GERD (gastroesophageal reflux disease) HOCM (hypertrophic obstructive cardiomyopathy) HTN (hypertension) Hyperlipidemia Hypothyroidism Hypoxia IBS (irritable bowel syndrome) Insomnia Nicotine dependence, cigarettes, with other nicotine-induced disorders Obstructive sleep apnea (adult) (pediatric) Psychiatric care PVD (peripheral vascular disease) Restless leg syndrome Subclavian arterial stenosis Surgical History H/O: hysterectomy History of colonoscopy (~2018) History of esophagogastroduodenoscopy (EGD) (~2014) Tubal ligation status Family History Mother Cancer Father Cancer Social History Smoking and tobacco status: current every day smoker cigarettes Packs smoked per day: 1 Quit status (tobacco): has tried quititng Second hand smoke exposure: No Alcohol intake: never Substance/Drug Use: never Adopted: No Caregiver/support person: Yes Lives independently: Yes Household members: significant other Housing: House Marital status: Life Partner Highest education level completed: High School Graduate service: No Current occupational status: disabled Current occupational exposures/hazards: No Pets and animals: No Sexually active: Yes Do you think of yourself as: Straight/Heterosexual Current gender identity: Female Yary/Quaker: None Financial difficulty paying for basics: Decline to Answer Female Reproductive History: Spontaneous abortions: No Physical Exam Const: COMMON NORMALS: no acute distress (Nontoxic-appearing but visibly upset at times.), patient oriented x3 and alert HENMT: COMMON NORMALS: normocephalic, atraumatic, hearing grossly normal bilaterally and moist oral mucous membranes HEAD & SCALP: normocephalic and atraumatic Eye: COMMON NORMALS: Equal, round and reactive pupils present, EOMs intact bilaterally and conjunctivae normal CONJUNCTIVA: Yes conjunctivae normal PUPIL: Yes Equal, round and reactive pupils present Neck/C-Spine: COMMON NORMALS: full ROM and no JVD Lymph: LYMPHATIC: no lymphadenopathy noted Resp: COMMON NORMALS: normal respiratory effort, No retractions, No use of accessory muscles and clear to auscultation bilaterally AUSCULTATION: clear to auscultation bilaterally Cardio: COMMON NORMALS: no JVD, regular rate and regular rhythm RATE: regular rate RHYTHM: regular rhythm : COMMON NORMALS: Yes no CVA tenderness BLADDER/KIDNEY EXAM: Yes no CVA tenderness Back/Pelvis: COMMON NORMALS: no CVA tenderness, no thoracic nor lumbar tenderness and thoraco-lumbar ROM normal Extremity: COMMON NORMALS: normal to inspection, full ROM and capillary refill normal Neuro: COMMON NORMALS: patient oriented x3 SENSORIUM/ORIENTATION: Yes alert Psych: COMMON NORMALS: mental status grossly normal, Normal thought process present, cooperative, normal affect and activity/motor behavior normal THOUGHT PROCESS: Normal thought process present OTHER: Appropriately upset while talking about the of her grandson but, is able to exchange pleasantries throughout her evaluation. Skin: COMMON NORMALS: no rashes or lesions noted and no wounds GENERAL SKIN EXAM: no rashes or lesions noted Course Vital Signs: Vital signs: Vital Signs Temperature 98.9 F 11/15/22 01:11 Pulse Rate 66 11/15/22 01:11 Respiratory Rate 18 11/15/22 01:11 Blood Pressure 115/70 11/15/22 01:11 Pulse Oximetry 96 11/15/22 01:11 MDM - Recheck/Abnormal Lab/Rx Medical Decision Making Patient presented to the emergency department today for acute elevated blood sugars and, increased fatigue and dizziness. The patient admits she is under a lot of stress right now due to a significant loss in the family. We did check several possibilities for symptoms of dizziness and fatigue such as an infection, anemia, dehydration, and substance use but, patients evaluation today shows signs of a significant urinary tract infection. It is my suspicion that the patient has been having symptoms of infection causing her increased fatigue and, even causing issues with her elevated blood sugar readings. We did wait to administer insulin to wait and see the effect the patient's at home medication had on her blood sugar levels since she admitted to taking medication just prior to her arrival. However, blood sugars did not come down very much and we did provide her an insulin bolus. Patient received IV fluids during her stay here in the emergency department. She also received a first dose of antibiotics for her UTI. Patient actually requested food while here in the emergency department and tolerated p.o. intake. I encouraged her to have follow-up with her primary care doctor next week for recheck of her urine to assure improvement of her urinary findings. We also discussed the physical effects grief has on the body and explained that I do not think her hydroxyzine is causing her overall issues and, if she is receiving relief of her anxiety during this time, I encouraged her to continue taking her medication provided by her doctor. Differential Diagnosis Unlikely encounter for medication refill (Hyperglycemia, DKA, anemia, dehydration, depression, grief) Lab Data 11/15/22 01:32 11/15/22 01:32 Laboratory Results WBC 9.91 10^3/uL (3.29-11.43) 11/15/22 01:32 RBC 4.82 10^6/uL (3.85-5.65) 11/15/22 01:32 Hgb 12.50 g/dL (11.27-16.99) 11/15/22 01:32 Hct 38.1 % (36-47) 11/15/22 01:32 MCV 79.0 fl (85-98) L 11/15/22 01:32 MCH 25.9 pg (27-33) L 11/15/22 01:32 MCHC 32.8 g/dL (30-55) 11/15/22 01:32 RDW 15.9 % (12.1-15.1) H 11/15/22 01:32 Plt Count 309 10^3/cmm (157-399) 11/15/22 01:32 MPV 9.6 fL (7.4-10.4) 11/15/22 01:32 Neut % (Auto) 62.9 % 11/15/22 01:32 Lymph % (Auto) 24.8 % 11/15/22 01:32 Briscoe % (Auto) 7.6 % 11/15/22 01:32 Eos % (Auto) 2.9 % 11/15/22 01:32 Baso % (Auto) 0.6 % 11/15/22 01:32 Neut # (Auto) 6.23 10^3/uL (1.8-7.7) 11/15/22 01:32 Lymph # (Auto) 2.5 10^3/uL (0.8-4.8) 11/15/22 01:32 Briscoe # (Auto) 0.8 10^3/uL (0.2-0.9) 11/15/22 01:32 Eos # (Auto) 0.3 10^3/uL (0.0-0.8) 11/15/22 01:32 Baso # (Auto) 0.1 10^3/uL (0.0-0.1) 11/15/22 01:32 Nucleated RBC % (auto) 0 % 11/15/22 01:32 Nucleated RBCs # 0.0 /100WBC 11/15/22 01:32 ESR 35 mm/hr (0-15) H 11/15/22 01:32 Specimen Type Venous 11/15/22 01:32 Sample Site Not specified 11/15/22 01:32 Toby Test N/a 11/15/22 01:32 VBG pH 7.41 (7.32-7.42) 11/15/22 01:32 VBG pCO2 42.6 mmHg (41-51) 11/15/22 01:32 VBG pO2 45.7 mmHg (25-40) H 11/15/22 01:32 VBG HCO3 27.1 mmol/L (24-28) 11/15/22 01:32 VBG Base Excess 2.1 mmol/L (-3.0-3.0) 11/15/22 01:32 VBG Hematocrit 40.1 % (37-47) 11/15/22 01:32 O2 Delivery Device None 11/15/22 01:32 Block Engraver ID Wllpe 11/15/22 01:32 Sodium 133 mmol/L (136-145) L 11/15/22 01:32 Potassium 4.2 mmol/L (3.5-5.1) 11/15/22 01:32 Chloride 95 mmol/L (98-107) L 11/15/22 01:32 Carbon Dioxide 27 mmol/L (22-29) 11/15/22 01:32 Anion Gap 15.2 (5-19) 11/15/22 01:32 BUN 19 mg/dL (6-20) 11/15/22 01:32 Creatinine 0.6 mg/dL (0.5-0.9) 11/15/22 01:32 GFR Calculation 102.3 mL/min (90-130) 11/15/22 01:32 Glucose 389 mg/dL (65-115) H 11/15/22 01:32 POC Glucose 324 mg/dL (70-110) H 11/15/22 02:52 Calculated Osmolality 294 mOsm/kg (285-295) 11/15/22 01:32 Lactic Acid 1.7 mmol/L (0.5-2.2) 11/15/22 01:32 Calcium 9.0 mg/dL (8.5-10.5) 11/15/22 01:32 Total Bilirubin 0.2 mg/dL (0.15-1.2) 11/15/22 01:32 AST 67 U/L (0-32) H 11/15/22 01:32 ALT 57 U/L (0-33) H 11/15/22 01:32 Alkaline Phosphatase 147 U/L (35-105) H 11/15/22 01:32 Troponin T Baseline 7 ng/L (0-10) 11/15/22 01:32 Troponin T 120 Minute 7.02 ng/L (0-10) 11/15/22 03:18 C-Reactive Protein 25.7 mg/L (0.0-4.9) H 11/15/22 01:32 Total Protein 7.0 g/dL (6.6-8.7) 11/15/22 01:32 Albumin 4.0 g/dL (3.5-5.2) 11/15/22 01:32 Globulin 3.0 g/dL (1.3-4.6) 11/15/22 01:32 Lipase 38 U/L (13-60) 11/15/22 01:32 Urine Color Yellow (Yellow) 11/15/22 01:14 Urine Appearance Clear (CLEAR) 11/15/22 01:14 Urine pH 6 (5-7) 11/15/22 01:14 Ur Specific Jackson 1.005 (1.005-1.030) 11/15/22 01:14 Urine Protein Neg (Negative) 11/15/22 01:14 Urine Glucose (UA) 4+ (Normal) H 11/15/22 01:14 Urine Ketones Negative (Negative) 11/15/22 01:14 Urine Blood 2+ (Negative) H 11/15/22 01:14 Urine Nitrate Positive (Negative) H 11/15/22 01:14 Urine Bilirubin Neg (Negative) 11/15/22 01:14 Urine Urobilinogen Norm mg/dL (Negative) 11/15/22 01:14 Ur Leukocyte Esterase Trace (Negative) H 11/15/22 01:14 Urine RBC 0-4 /hpf (0-2) H 11/15/22 01:14 Urine WBC 25-40 /hpf (0-5) H 11/15/22 01:14 Ur Squamous Epith Cells 0-4 /hpf (0-5) H 11/15/22 01:14 Amorphous Sediment Not Reportable 11/15/22 01:14 Urine Bacteria 3+ /hpf (NONE) H 11/15/22 01:14 Urine Opiates Screen Negative ng/mL (Negative) 11/15/22 01:14 Ur Barbiturates Screen Negative ng/mL (Negative) 11/15/22 01:14 Ur Phencyclidine Scrn Negative ng/mL (Negative) 11/15/22 01:14 Ur Amphetamines Screen Negative ng/mL (Negative) 11/15/22 01:14 U Benzodiazepines Scrn Negative ng/mL (Negative) 11/15/22 01:14 Urine Cocaine Screen Negative ng/mL (Negative) 11/15/22 01:14 U Marijuana (THC) Screen Negative ng/mL (Negative) 11/15/22 01:14 Serum Ketones Negative (Negative) 11/15/22 01:32 Discharge Plan Discharge Patient Disposition: Home Clinical Impression: UTI (urinary tract infection), Fatigue, Acute hyperglycemia Condition: Stable Prescriptions: New cefdinir 300 mg capsule 300 mg PO BID 10 Days Qty: 20 0RF No Action aspirin [Adult Low Dose Aspirin] 81 mg tablet,delayed release (DR/EC) 81 mg PO DAILY Iron 65 mg PO miscellaneous medical supply Misc 1 ea miscellaneous .COMPLEX Qty: 1 0RF Rx Instructions: 1 ea miscellaneous 3L NC O2 COTINUOUS; miscellaneous medical supply Misc See Rx Instructions miscellaneous .COMPLEX Qty: 1 0RF Rx Instructions: CPAP machine with oxygen adapter as directed; with supplies/face mask etc lisinopril-hydrochlorothiazide 10-12.5 mg tablet 1 tab PO DAILY 90 Days Qty: 90 1RF oxycodone-acetaminophen [Percocet] 10-325 mg tablet 1 tab PO QID PRN (Reason: pain) 30 Days Qty: 120 0RF albuterol sulfate [Ventolin HFA] 90 mcg/actuation HFA aerosol inhaler 1 inh INHALATION QID PRN (Reason: shortness of breath or wheezing) 30 Days Qty: 18 5RF promethazine 25 mg tablet 25 mg PO BID PRN (Reason: nausea and vomiting) 30 Days Qty: 60 2RF atorvastatin 40 mg tablet 40 mg PO DAILY 90 Days Qty: 90 1RF ibuprofen [IBU] 600 mg tablet 600 mg PO TID PRN (Reason: pain) 30 Days Qty: 90 2RF Trover 1.5 billion cell capsule PO Patient Comments: She takes one cap of 3 billion cell cyclobenzaprine 10 mg tablet 10 mg PO Q12H oxycodone [OxyContin] 30 mg tablet,oral only,ext.rel.12 hr 30 mg PO DAILY glipizide 10 mg tablet extended release 24hr 10 mg PO BID 90 Days Qty: 180 1RF metoprolol succinate 50 mg tablet extended release 24 hr 50 mg PO BID 30 Days Qty: 60 2RF Rx Instructions: hold 2nd dose if HR is low metoprolol succinate 50 mg tablet extended release 24 hr 50 mg PO .1- 03/23 MDD 1 AM 1/2 in PM Qty: 45 5RF amlodipine 5 mg tablet 5 mg PO DAILY Qty: 30 5RF mirtazapine 7.5 mg tablet 7.5 mg PO DAILY Qty: 30 0RF Caplyta 42 mg capsule See Rx Instructions .ROUTE .COMPLEX Qty: 30 2RF Dose Instruction: TAKE ONE CAPSULE BY MOUTH DAILY Rx Instructions: TAKE ONE CAPSULE BY MOUTH DAILY hydroxyzine pamoate 50 mg capsule See Rx Instructions .ROUTE .COMPLEX Qty: 180 0RF Dose Instruction: TAKE 1-2 NEEDED DAILY AT BEDTIME FOR SLEEP Rx Instructions: TAKE 1-2 NEEDED DAILY AT BEDTIME FOR SLEEP [id number] [Bromfed DM] 2-30-10 mg/5 mL syrup 5 ml PO Q6H PRN (Reason: cold symptoms) Qty: 118 0RF amoxicillin-pot clavulanate 875-125 mg tablet 1 tab PO BID Qty: 20 0RF fluticasone propionate 50 mcg/actuation spray,suspension 1 spray intranasal DAILY PRN (Reason: allergy symptoms) Qty: 16 0RF Rx Instructions: administer into each nostril (DME) OneTouch Verio test strips Strip See Rx Instructions .ROUTE .MEDSUPPLY Qty: 100 0RF Rx Instructions: ONCE DAILY; MAY TEST UP TO BID IF NOT FEELING GOOD albuterol sulfate 2.5 mg /3 mL (0.083 %) solution for nebulization 2.5 mg inhalation Q6H PRN (Reason: shortness of breath or wheezing) Qty: 150 1RF duloxetine 60 mg capsule,delayed release(DR/EC) See Rx Instructions .ROUTE .COMPLEX Qty: 30 3RF Dose Instruction: TAKE ONE CAPSULE BY MOUTH DAILY IN THE MORNING FOR 30 DAYS Rx Instructions: TAKE ONE CAPSULE BY MOUTH DAILY IN THE MORNING FOR 30 DAYS varenicline [Chantix] 1 mg tablet 1 mg PO BID Qty: 56 0RF levothyroxine 50 mcg tablet See Rx Instructions .ROUTE .COMPLEX Qty: 90 0RF Dose Instruction: TAKE ONE TABLET BY MOUTH DAILY Rx Instructions: TAKE ONE TABLET BY MOUTH DAILY omeprazole 20 mg capsule,delayed release(DR/EC) See Rx Instructions .ROUTE .COMPLEX Qty: 60 2RF Dose Instruction: TAKE ONE CAPSULE BY MOUTH TWICE A DAY Rx Instructions: TAKE ONE CAPSULE BY MOUTH TWICE A DAY Januvia 100 mg tablet See Rx Instructions .ROUTE .COMPLEX Qty: 90 0RF Dose Instruction: TAKE ONE TABLET BY MOUTH DAILY Rx Instructions: TAKE ONE TABLET BY MOUTH DAILY duloxetine 30 mg capsule,delayed release(DR/EC) See Rx Instructions .ROUTE .COMPLEX Qty: 30 5RF Hold Instructions: Dose Change Dose Instruction: 30 MG ORALLY DAILY IN ADDITION TO 60MG = 90MG DAILY Rx Instructions: 30 MG ORALLY DAILY IN ADDITION TO 60MG = 90MG DAILY Discharge Orders: Discharge ED (Routine); Ordered 11/15/22 Ordered By: Allison Alejandra Referrals: Abigail Waldrop MD [Primary Care Provider] - Discharge Diet: Diabetic Discharge Activity: Increase activity as tolerated Patient Instructions: Hyperglycemia, Urinary Tract Infection in Women (ED) Activity Restrictions/Additional Instructions: Evaluation for your hyperglycemia and fatigue I believe have twofold causes. First, I think your blood sugars are acutely elevated as you are currently fighting an infection. You have significant findings of urinary tract infection at this time with lots of bacteria and white blood cells present in your urine. We are starting you on antibiotics to help treat this. As you most likely know, infection often affect your blood sugar levels which is why I think you have had some elevated readings. Lab work shows that your body is handling the elevated blood sugar levels well and you show no signs of ketoacidosis in your blood. We did treat you with insulin here in the emergency department to help bring your blood sugar levels down. As you also know, infections and illness often cause you to feel increasingly fatigued. However, I think that a secondary cause for increased fatigue is most likely due to grief processing. As we also discussed here in the ER, processing of grief can also take a physical toll on the body including decreased appetite and inc reased fatigue. The medication you were provided-hydroxyzine, is a medication I prescribe frequently to my patients. I do not think the medication is attributing to issues with your blood sugar or specifically with any increased fatigue though a common side effect is drowsiness with the use of hydroxyzine. It appears the doctor is recommending 1-2 tabs before bed-most likely due to to the drowsy side effects of this medication as we do not want to working or driving if feeling drowsy. However, typical dosing is 1 to 2 tablets every 6-8 hours as needed for symptom relief. I do request that you follow-up with your primary care provider next week. I would like you to have repeat of your urine test to make sure signs and symptoms of infection are resolving with antibiotic treatment. If for any reason you are still struggling controlling your blood sugars or start to have vomiting, genesis rrhea, abdominal pain, or fever you need to be seen and reevaluated in the acute setting. Coding Level of Care Code ED Physician Assistant Surgery for [facility]
[2022-11-15 03:56] LABS: Troponin 5 2HR 7.02 ng/L (0-10); Troponin 5 2HR Delta 0.02 ABS# (0-10)
[2022-11-15 03:57] LABS: Glucose Point of Care 210 mg/dL (70-110)
[2022-11-15 04:02] VITALS: BP 106/70; PULSE 81; RESP 18; O2SAT 99
[2022-11-15 04:25] VITALS: BP 106/70; PULSE 73; RESP 18; O2SAT 98
[2022-11-20 04:50] LABS: Beta-Hydroxybutyrate 0.08 mmol/L
== END 2022-11-15 04:43 | disposition home or self-care (01) ==
PROVIDERS: Emergency Provider Physician Assistant; PCP Family Medicine
DX: E11.65 Type 2 diabetes mellitus with hyperglycemia (principal); N39.0 Urinary tract infection, site not specified; R53.83 Other fatigue; Z79.82 Long term (current) use of aspirin; F17.210 Nicotine dependence, cigarettes, uncomplicated; J44.9 Chronic obstructive pulmonary disease, unspecified; I10 Essential (primary) hypertension; E78.5 Hyperlipidemia, unspecified
CPT/HCPCS: 36415; 36416; 80053; 80306; 81001; 82009; 82010; 82803; 82962; 83605; 83690; 84484; 85025; 85651; 86140; 87077; 87086; 87186; 93005; 96374; 96375; 99284; J0696; J1815

== ENCOUNTER → 2022-11-26 11:38 | Outpatient (BNVA) | payer MEDICARE, MEDICAID, SELFPAY | PROVIDERS: PCP Family Medicine; Visit Provider Family Medicine | DX: N39.0 Urinary tract infection, site not specified (principal); E03.9 Hypothyroidism, unspecified; I10 Essential (primary) hypertension; E11.59 Type 2 diabetes mellitus with other circulatory complications; J44.9 Chronic obstructive pulmonary disease, unspecified; J41.0 Simple chronic bronchitis; E11.9 Type 2 diabetes mellitus without complications; B37.31 Acute candidiasis of vulva and vagina; N30.01 Acute cystitis with hematuria; R53.83 Other fatigue; G47.33 Obstructive sleep apnea (adult) (pediatric) | CPT/HCPCS: 80053; 81000; 83036; 84439; 84443; 84481; 85025; 87086 ==

== ENCOUNTER → 2023-02-18 12:49 | Outpatient (BNVA) | payer MEDICARE, MEDICAID, SELFPAY | PROVIDERS: PCP Family Medicine; Visit Provider Podiatrist Foot & Ankle Surgery | DX: I73.9 Peripheral vascular disease, unspecified (principal); B35.1 Tinea unguium; G62.9 Polyneuropathy, unspecified; E11.42 Type 2 diabetes mellitus with diabetic polyneuropathy; Z79.4 Long term (current) use of insulin | CPT/HCPCS: 11721; 99203 ==

== ENCOUNTER → 2023-03-23 09:20 | Outpatient (BNVA) | payer MEDICARE, SELFPAY ==
[2023-03-17 13:45] VITALS: BP 115/71; BMI 33.8
== END ==
PROVIDERS: PCP Family Medicine; Visit Provider Family Medicine
DX: J44.9 Chronic obstructive pulmonary disease, unspecified; R94.39 Abnormal result of other cardiovascular function study; I70.8 Atherosclerosis of other arteries; E11.59 Type 2 diabetes mellitus with other circulatory complications; F17.218 Nicotine dependence, cigarettes, with other nicotine-induced disorders; R11.0 Nausea; K29.70 Gastritis, unspecified, without bleeding; I10 Essential (primary) hypertension; E03.9 Hypothyroidism, unspecified; R30.0 Dysuria; G47.33 Obstructive sleep apnea (adult) (pediatric); E11.42 Type 2 diabetes mellitus with diabetic polyneuropathy; Z79.4 Long term (current) use of insulin; K21.9 Gastro-esophageal reflux disease without esophagitis
CPT/HCPCS: 81000; 83036

== ENCOUNTER → 2023-05-10 09:26 | Outpatient (BNVA) | payer MEDICARE, MEDICAID, SELFPAY ==
[2023-03-17 13:45] VITALS: BP 115/71; BMI 33.8
== END ==
PROVIDERS: PCP Family Medicine; Visit Provider Podiatrist Foot & Ankle Surgery
DX: B35.1 Tinea unguium (principal); E11.42 Type 2 diabetes mellitus with diabetic polyneuropathy; Z79.4 Long term (current) use of insulin; I73.9 Peripheral vascular disease, unspecified; G62.9 Polyneuropathy, unspecified
CPT/HCPCS: 11721

== ENCOUNTER → 2023-06-14 13:01 | Outpatient (BNVA) | payer MEDICARE, MEDICAID, SELFPAY ==
[2023-03-17 13:45] VITALS: BP 115/71; BMI 33.8
== END ==
PROVIDERS: PCP Family Medicine; Referring Provider Family Medicine; Visit Provider Surgery
DX: K21.9 Gastro-esophageal reflux disease without esophagitis (principal); K59.03 Drug induced constipation; T40.2X5A Adverse effect of other opioids, initial encounter; Z87.11 Personal history of peptic ulcer disease; X58.XXXA Exposure to other specified factors, initial encounter
CPT/HCPCS: 99204

== ENCOUNTER 2023-06-23 11:03 | Day surgery (SDC) | payer MEDICARE, MEDICAID, SELFPAY ==
[2023-03-17 13:45] VITALS: BP 115/71; BMI 33.8
[2023-06-23 11:22] VITALS: BP 143/70; PULSE 64; RESP 18; TEMP 36.1; O2SAT 97
[2023-06-23] MEDS: sodium chloride 0.9% 1,000 ML 30 ML IV (11:44)
[2023-06-23 11:57] LABS: Glucose Point of Care 219 mg/dL (70-110)
--- NOTE | 2023-06-23 12:16 | ANES.PREANE2 ---
Pre-Anesthetic Assessment Height/Weight: Height 1.57 m Weight 86.183 kg Temp Pulse Resp BP Pulse Ox O2 Del Method 96.9 F L 64 18 143/70 97 Room Air 06/23/23 11:22 06/23/23 11:22 06/23/23 11:22 06/23/23 11:22 06/23/23 11:22 06/23/23 11:22 Preop Diagnosis: GERD Operation Date: 06/23/23 12:45 Proposed Procedures p EGD(Not Applicable) - Lucas Guzman DO Familial anesthetic complications: none Was Beta Ronel taken within 24 hours: Yes Was Clonidine taken within 24 hours: N/A Last intake: Intake Last Liquid Date 06/22/23 Last Liquid Time 23:30 Last Solid Date 06/22/23 Last Solid Time 20:00 Social Tobacco 1.5 pack(s) per day 50 pack years Exam alert, oriented x 3, clear to auscultation bilaterally and regular rate & rhythm Airway Submandibular: within normal limits Cervical ROM: within normal limits Mallampati: Class II Dentition: false Pulmonary Chronic Obstructive Pulmonary Disease and Sleep Apnea O2 when sleeping CV/HEM Hypertension stent in aorta None reported Hepatic None reported GI Gastroesophageal Reflux Disease Metabolic Diabetes Mellitus and Thyroid Disease Musc/skel Fibromyalgia, Lower Back Pain and Osteoarthritis/DJD Neuropsych Anxiety, Bipolar, Depression, Headache and Transient Ischemic Attack Anesthetic Plan ASA status: 3 Anesthesia: MAC Risk of > 500 ml blood loss (7ml/kg in children): No Medications/Allergies Home Medications Medication Instructions Recorded Confirmed Last Taken Type aspirin 81 mg tablet,delayed 81 mg PO DAILY 09/27/19 06/22/23 06/21/23 History release (Adult Low Dose Aspirin) blood sugar diagnostic (OneTouch #100 ea 05/12/20 06/22/23 06/21/23 Rx Verio test strips) Iron 65 mg PO DAILY 10/06/21 06/22/23 06/21/23 History ibuprofen 600 mg tablet (IBU) 600 mg PO TID PRN pain 30 days #90 04/08/22 06/22/23 06/21/23 Rx tabs oxycodone-acetaminophen 10 mg-325 1 tab PO QID PRN pain 30 days #120 07/16/22 06/22/23 06/21/23 Rx mg tablet (Percocet) tabs oxycodone 30 mg tablet,crush 30 mg PO DAILY 10/07/22 06/22/23 06/21/23 History resistant,extended release 12 hr (OxyContin) pen needle, diabetic 31 gauge x #100 ea 11/17/22 06/22/23 06/21/23 Rx 1/4 (Comfort Touch Pen Needle) miscellaneous medical supply 1 ea miscellaneous .COMPLEX #1 ea 01/27/23 06/22/23 06/21/23 Rx miscellaneous medical supply See Rx Instructions miscellaneous 02/07/23 06/22/23 06/21/23 Rx .COMPLEX #1 ea diabetic shoes with 3 inserts #1 ea 02/18/23 06/22/23 06/21/23 Rx albuterol sulfate 90 mcg/actuation 1 inh inhalation QID PRN shortness 03/23/23 06/22/23 06/21/23 Rx aerosol inhaler (Ventolin HFA) of breath or wheezing 30 days #18 grams atorvastatin 40 mg tablet 40 mg PO DAILY 90 days #90 tabs 03/23/23 06/22/23 06/21/23 Rx glipizide 10 mg tablet, extended 10 mg PO BID 90 days #180 tabs 03/23/23 06/22/23 06/21/23 Rx release 24 hr levothyroxine 75 mcg tablet 75 mcg PO DAILY 90 days #90 tabs 03/23/23 06/22/23 06/23/23 Rx lisinopril 10 1 tab PO DAILY 90 days #90 tabs 03/23/23 06/22/23 06/21/23 Rx mg-hydrochlorothiazide 12.5 mg tablet omeprazole 20 mg capsule,delayed 20 mg PO BID 90 days #180 caps 03/23/23 06/22/23 06/21/23 Rx release pregabalin 50 mg capsule (Lyrica) 50 mg PO DAILY 03/23/23 06/22/23 06/21/23 History albuterol sulfate 2.5 mg/3 mL 2.5 mg (3 mL) inhalation Q6H PRN 03/24/23 06/22/23 06/21/23 Rx (0.083 %) solution for nebulization shortness of breath or wheezing #150 vials brexpiprazole 3 mg tablet 3 mg PO DAILY #30 tabs 04/21/23 06/22/2306/20/24 Rx duloxetine 30 mg capsule,delayed See Rx Instructions .Route 04/21/23 06/22/23 06/21/23 Rx release .COMPLEX #30 caps duloxetine 60 mg capsule,delayed See Rx Instructions .Route 04/21/23 06/22/23 06/21/23 Rx release .COMPLEX #30 caps mirtazapine 7.5 mg tablet 7.5 mg PO DAILY #30 tabs 04/21/23 06/22/23 06/21/23 Rx miscellaneous medical supply See Rx Instructions miscellaneous 04/22/23 06/22/23 06/21/23 Rx .COMPLEX #1 ea miscellaneous medical supply See Rx Instructions miscellaneous 04/22/23 06/22/23 06/21/23 Rx .COMPLEX #1 ea miscellaneous medical supply See Rx Instructions miscellaneous 05/11/23 06/22/23 06/21/23 Rx .COMPLEX #1 ea amlodipine 5 mg tablet 5 mg PO DAILY 90 days #90 tabs 06/07/23 06/22/23 06/23/23 Rx metoprolol succinate 50 mg 150 mg (3 x 50 mg) PO DAILY 90 06/07/23 06/22/23 06/23/23 Rx tablet,extended release 24 hr days #180 tabs promethazine 25 mg tablet 25 mg PO BID 90 days #180 tabs 06/07/23 06/22/23 06/21/23 Rx linaclotide 145 mcg capsule 145 mcg PO DAILY 30 days #30 caps 06/15/23 06/22/23 06/21/23 Rx (Linzess) methylnaltrexone 150 mg tablet 450 mg (3 x 150 mg) PO DAILY 1 06/15/23 06/22/23 06/21/23 Rx (Relistor) month #30 tabs pantoprazole 40 mg tablet,delayed 40 mg PO BID 6 weeks #84 tabs 06/15/23 06/22/23 06/21/23 Rx release (Protonix) insulin degludec 100 unit/mL (3 60 unit SUBCUT QAM 06/21/23 06/22/23 06/21/23 History mL) subcutaneous pen (Tresiba FlexTouch U-100 insulin) sitagliptin phosphate 100 mg 100 mg PO DAILY 06/21/23 06/22/23 06/21/23 History tablet (Januvia) Allergies Allergy/AdvReac Type Severity Reaction Status Date / Time morphine Allergy Severe ADR-Agitate Verified 06/22/23 07:34 d quetiapine [From Seroquel] AdvReac Mild ADR-Halluci Verified 06/22/23 07:34 nating amitriptyline AdvReac Unknown ADR-Nightma Verified 06/22/23 07:34 re trazodone AdvReac ADR-Nightma Verified 06/22/23 07:34 re Current Medications Generic Name Dose Route Start Last Admin Trade Name Freq PRN Reason Stop Dose Admin Sodium Chloride 1,000 mls @ 30 mls/hr 06/23/23 11:30 06/23/23 11:44 Sodium Chloride 0.9% IV 06/24/23 11:29 30 mls/hr .Q24H DANIEL Administration PFSH Anesthesia Medical History History of peptic ulcer disease Insomnia Psychiatric care Hypoxia COVID-19 Chronic migraine without aura Hypothyroidism Nicotine dependence, cigarettes, with other nicotine-induced disorders Obstructive sleep apnea (adult) (pediatric) Bipolar II disorder Restless leg syndrome COPD (chronic obstructive pulmonary disease) Bypass graft stenosis Subclavian artery GERD (gastroesophageal reflux disease) IBS (irritable bowel syndrome) FELIPA (generalized anxiety disorder) Bipolar affective disorder Hyperlipidemia Diabetes Does not tolerate metfromin. Subclavian arterial stenosis HOCM (hypertrophic obstructive cardiomyopathy) PVD (peripheral vascular disease) HTN (hypertension) Surgical History History of esophagogastroduodenoscopy (EGD) (~2014) History of colonoscopy (~2018) Tubal ligation status H/O: hysterectomy Family History Mother Cancer Father Cancer Social History Smoking and tobacco/nicotine status: current every day tobacco/nicotine user cigarettes Packs smoked per day: 1 Quit status (tobacco/nicotine): has tried quititng Second hand smoke exposure: No Alcohol intake: never Substance/Drug Use: never Adopted: No Caregiver/support person: Yes Lives independently: Yes Household members: significant other Housing: House Marital status: Life Partner Highest education level completed: High School Graduate service: No Current occupational status: disabled Current occupational exposures/hazards: No Pets and animals: No Sexually active: Yes Do you think of yourself as: Straight/Heterosexual Current gender identity: Female Yary/Pentecostal: None Female Reproductive History Spontaneous abortions: No Data Anesthesia Cardiac Studies: Echocardiogram Ultrasound 04/07/19 Cardiac Event Monitor 08/04/22
--- NOTE | 2023-06-23 12:52 | W.PM.OPSUD ---
Surgery/Procedure H&P Update DATE OF PROCEDURE: June 23, 2023 DATE H&P PERFORMED: 06/14/23 H&P UPDATE INFORMATION: I have reviewed H&P completed within last 30 days, I have examined patient prior to procedure and No changes to prior documentation PREOP DIAGNOSIS: GERD PLANNED PROCEDURE: Operation Date: 06/23/23 12:45 Proposed Procedures p EGD(Not Applicable) - Lucas Guzman DO
[2023-06-23 13:23] VITALS: BP 116/85; PULSE 58; RESP 16; O2SAT 99
--- NOTE | 2023-06-23 13:50 | ANE.PACU2 ---
Inpatient post-anesthesia follow up: Airway intact: Yes Vital signs: Temperature 96.9 F Pulse Rate 58 Respiratory Rate 16 Blood Pressure 116/85 Pulse Oximetry 99 Oxygen Delivery Me thod Room Air Oxygen Flow Rate Fraction of Inspir ed Oxygen Hydration adequate: Yes Nausea and vomiting: No Pain level: 1 Mental status: Baseline
== END 2023-06-23 13:53 | disposition home or self-care (01) ==
PROVIDERS: PCP Family Medicine; Visit Provider Surgery
PROC: 0DJ08ZZ Inspection of Upper Intestinal Tract, Via Natural or Artificial Opening Endoscopic (ICD-10-PCS; CPT 43235; principal; 2023-06-23 12:45)
DX: K25.9 Gastric ulcer, unspecified as acute or chronic, without hemorrhage or perforation (principal); K21.9 Gastro-esophageal reflux disease without esophagitis; R13.10 Dysphagia, unspecified; Z87.11 Personal history of peptic ulcer disease; Z79.82 Long term (current) use of aspirin; E03.9 Hypothyroidism, unspecified; Z86.16 Personal history of COVID-19; G47.33 Obstructive sleep apnea (adult) (pediatric); F17.210 Nicotine dependence, cigarettes, uncomplicated; J44.9 Chronic obstructive pulmonary disease, unspecified; Z95.5 Presence of coronary angioplasty implant and graft; E11.9 Type 2 diabetes mellitus without complications; I10 Essential (primary) hypertension; Z99.81 Dependence on supplemental oxygen; M79.7 Fibromyalgia
CPT/HCPCS: 36416; 43239; 82962; 88305; 88342; J2704; J7030

== ENCOUNTER → 2023-07-13 10:00 | Outpatient (BNVA) | payer MEDICARE, MEDICAID, SELFPAY ==
[2023-03-17 13:45] VITALS: BP 115/71; BMI 33.8
== END ==
PROVIDERS: PCP Family Medicine; Visit Provider Podiatrist Foot & Ankle Surgery
DX: B35.1 Tinea unguium (principal); E11.42 Type 2 diabetes mellitus with diabetic polyneuropathy; Z79.4 Long term (current) use of insulin; I73.9 Peripheral vascular disease, unspecified; G62.9 Polyneuropathy, unspecified
CPT/HCPCS: 11721

== ENCOUNTER → 2023-07-19 10:21 | Outpatient (BNVA) | payer MEDICARE, MEDICAID, SELFPAY ==
[2023-03-17 13:45] VITALS: BP 115/71; BMI 33.8
== END ==
PROVIDERS: PCP Family Medicine; Visit Provider Surgery
DX: Z09 Encounter for follow-up examination after completed treatment for conditions other than malignant neoplasm (principal); K27.9 Peptic ulcer, site unspecified, unspecified as acute or chronic, without hemorrhage or perforation; K59.04 Chronic idiopathic constipation; K59.03 Drug induced constipation; T40.2X5A Adverse effect of other opioids, initial encounter; R11.0 Nausea; X58.XXXA Exposure to other specified factors, initial encounter; E11.42 Type 2 diabetes mellitus with diabetic polyneuropathy; Z79.4 Long term (current) use of insulin; K21.9 Gastro-esophageal reflux disease without esophagitis; I10 Essential (primary) hypertension; Z79.890 Hormone replacement therapy; Z79.84 Long term (current) use of oral hypoglycemic drugs; Z72.0 Tobacco use
CPT/HCPCS: 80053; 83036; 99214

== ENCOUNTER → 2023-09-14 09:50 | Outpatient (BNVA) | payer MEDICARE, SELFPAY ==
[2023-03-17 13:45] VITALS: BP 115/71; BMI 33.8
== END ==
PROVIDERS: PCP Family Medicine; Visit Provider Podiatrist Foot & Ankle Surgery
DX: B35.1 Tinea unguium (principal); E11.42 Type 2 diabetes mellitus with diabetic polyneuropathy; Z79.4 Long term (current) use of insulin; I73.9 Peripheral vascular disease, unspecified; G62.9 Polyneuropathy, unspecified
CPT/HCPCS: 11721

== ENCOUNTER → 2023-10-18 08:53 | Outpatient (BNVA) | payer MEDICARE, SELFPAY ==
[2023-03-17 13:45] VITALS: BP 115/71; BMI 33.8
== END ==
PROVIDERS: PCP Family Medicine; Visit Provider Family Medicine
DX: J43.9 Emphysema, unspecified (principal); R09.02 Hypoxemia; E11.42 Type 2 diabetes mellitus with diabetic polyneuropathy; Z79.4 Long term (current) use of insulin; E03.9 Hypothyroidism, unspecified; E78.1 Pure hyperglyceridemia; G25.81 Restless legs syndrome; N95.1 Menopausal and female climacteric states; I70.8 Atherosclerosis of other arteries; E11.59 Type 2 diabetes mellitus with other circulatory complications; I10 Essential (primary) hypertension
CPT/HCPCS: 80048; 80061; 84439; 84443; 84481

== ENCOUNTER → 2023-12-14 10:32 | Outpatient (BNVA) | payer MEDICARE, SELFPAY ==
[2023-12-03 09:47] VITALS: BP 123/65; BMI 36.3
== END ==
PROVIDERS: PCP Family Medicine; Visit Provider Internal Medicine
DX: E11.42 Type 2 diabetes mellitus with diabetic polyneuropathy (principal); Z79.4 Long term (current) use of insulin; E03.9 Hypothyroidism, unspecified; I10 Essential (primary) hypertension; E78.2 Mixed hyperlipidemia; Z79.84 Long term (current) use of oral hypoglycemic drugs
CPT/HCPCS: 99204

== ENCOUNTER → 2024-01-18 12:51 | Outpatient (BNVA) | payer MEDICARE, SELFPAY ==
[2023-12-03 09:47] VITALS: BP 123/65; BMI 36.3
== END ==
PROVIDERS: PCP Family Medicine; Visit Provider Podiatrist Foot & Ankle Surgery
DX: B35.1 Tinea unguium (principal); E11.42 Type 2 diabetes mellitus with diabetic polyneuropathy; Z79.4 Long term (current) use of insulin; I73.9 Peripheral vascular disease, unspecified; G62.9 Polyneuropathy, unspecified
CPT/HCPCS: 11721

== ENCOUNTER → 2024-03-01 12:23 | Outpatient (BNVA) | payer MEDICARE, SELFPAY ==
[2023-12-03 09:47] VITALS: BP 123/65; BMI 36.3
== END ==
PROVIDERS: PCP Family Medicine; Visit Provider Internal Medicine
DX: R07.9 Chest pain, unspecified (principal)
CPT/HCPCS: 93005

== ENCOUNTER → 2024-03-29 14:28 | Outpatient (BNVA) | payer MEDICARE, SELFPAY ==
[2023-12-03 09:47] VITALS: BP 123/65; BMI 36.3
== END ==
PROVIDERS: PCP Family Medicine; Visit Provider Podiatrist Foot & Ankle Surgery
DX: Q82.8 Other specified congenital malformations of skin (principal); B35.1 Tinea unguium; E11.42 Type 2 diabetes mellitus with diabetic polyneuropathy; Z79.4 Long term (current) use of insulin; I73.9 Peripheral vascular disease, unspecified; G62.9 Polyneuropathy, unspecified
CPT/HCPCS: 11721; 17110; 99213

== ENCOUNTER 2024-04-07 09:27 | Outpatient (CLI) | payer MEDICARE, SELFPAY ==
[2023-12-03 09:47] VITALS: BP 123/65; BMI 36.3
[2024-04-07 09:50] VITALS: BMI 36.6
--- NOTE | 2024-04-07 09:58 | ECG_ITS ---
Proxible Test Date: 2024-04-07 Pat Name: Linda Frank Department: Room: Gender: Female Manager Primary Care: : 1965 Requested By: Edilberto Zarate Order Number: [id number] Reading MD: CHRIS ARANDA Interpretive Statements Lung unchanged pre/post procedure; Intraprocedure shortess of breath; Symptoms resoled by discharge NOTE: Please note that this is the electrocardiogram portion of the Lexiscan/Sestamibi stress test. The perfusion scan will be documented separately. DATA: Baseline heart rate was 67 beats per minute. Baseline blood pressure was 111/85 millimeters of mercury. Target heart rate was 160. Maximum heart rate achieved was 83. which was 51% of the predicted target heart rate. Maximum blood pressure was 111/85 millimeters of mercury. The reason for ending the test was completion of the protocol. The patient did not experience any symptoms. ELECTROCARDIOGRAM: BASELINE: Sinus rhythm. Normal axis. Otherwise, no ST-T changes suggestive of ischemia noted. No arrhythmia noted. EXERCISE: After Lexiscan injection, no ST-T changes suggestive of ischemic noted. No arrhythmia noted. CONCLUSION: Please note due to baseline abnormality of the EKG specificity and sensitivity of the EKG portion of LexiScan MIBI stress test will be low 1. EKG not suggestive of ischemia 2. Lexiscan injection unremarkable. 3. Perfusion scan will be documented separately. Electronically Signed On 04-24-2024 22:37:51 NETWORK TECHNOLOGY INSTRUCTOR by CHRIS ARANDA [email or web address]
--- NOTE | 2024-04-07 09:59 | NMCV_ITS ---
NM neli perf SPECT r/s* [id number] Linda Frank Age: 58 Gender: F : 1965 Exam Date: 04/07/2024 09:59 Ordering Phys: Edilberto Zarate M.D ([email or web address]) Technologist: STEPAN Diez Exam Location: [facility] Indications: cp STRESS TEST Please see separate stress test report in [facility] for full findings IMAGE PROTOCOL Rest/Stress 1 Lexiscan Day Radiopharmaceutical Dose (mCi) Administration Site Administered by Rest: Tc-99m 11 IV STEPAN Diez Sestamibi Stress:Tc-99m 33 IV STEPAN Gardner Sestamibi Rest: 07-Apr-2024 60 Discovery 630 Stress: 07-Apr-2024 30 Discovery 630 0.4mg Lexiscan. Supine position only as patient was unable to lay prone. SPECT RESULTS Technical Quality: Good Raw Data Analysis: Normal Image Corrections: No attenuation or motion correction applied Summed Stress Score: 2 Summed Rest Score: 1 Summed Difference Score: 1 PERFUSION FINDINGS SPECT images demonstrate homogeneous tracer distribution throughout the myocardium. FUNCTIONAL RESULTS (calculated via Gated SPECT) Stress Image LV EF (%): 75 Stress EDV (mL):80 TID: 1 Stress ESV (mL):20 FUNCTIONAL FINDINGS: There is normal left ventricular systolic function. IMPRESSIONS Myocardial perfusion imaging is normal and low probability for obstructive coronary artery disease. Maryan Altamirano MD (Electronically Signed) Final Date: 07 April 2024 22:04 S
[2024-04-07 11:48] VITALS: BP 105/67; PULSE 71
[2024-04-07] MEDS: regadenoson 0.4 Mg/5 ml Syringe IVP (11:49)
== END 2024-04-07 09:28 | disposition home or self-care (01) ==
PROVIDERS: PCP Family Medicine; Visit Provider Internal Medicine
DX: R07.9 Chest pain, unspecified (principal)
CPT/HCPCS: 36415; 78452; 93017; 96374; A9500; J2785

== ENCOUNTER 2024-04-07 13:55 | Outpatient (CLI) | payer MEDICARE, SELFPAY ==
[2023-12-03 09:47] VITALS: BP 123/65; BMI 36.3
--- NOTE | 2024-04-07 15:00 | USCV_ITS ---
Linda Frank Age: 58 Gender: F : 1965 Exam Date: 04/07/2024 14:52 Ordering Phys: Edilberto Zarate M.D ([email or web address]) Technologist: Rafiq Patel [place] [facility] [place]: sob BP: 106 / 63 HR: 65 Rhythm: Sinus Technical Quality: Adequate MEASUREMENTS (Male / Female) Normal Values 2D ECHO LVOT Diameter 2.0 cm LV Ejection Fraction MOD 4C 70.0 % LV Ejection Fraction MOD 2C 67.8 % LV Ejection Fraction 2C AL 70.6 % LA Diameter 3.8 cm LA Sys Volume AL 40.3 cm cubed LA Sys Volume Index AL 19.5 cm cubed/m squared Aorta at Sinotubular Diameter 2.2 cm IVC Diameter 1.6 cm M-MODE LA Ao Ratio MM 1.6 AV Cusp Separation MM 1.9 cm DOPPLER AV Peak Velocity 157.0 cm/s AV Area Cont Eq vti 6.8 cm squared AV Area Cont Eq pk 8.0 cm squared MV Peak Velocity 92.0 cm/s MV Area PHT 2.8 cm squared Mitral E to A Ratio 0.8 TR Peak Velocity 234.0 cm/s TR Peak Gradient 21.9 mmHg TV Peak E Velocity 66.0 cm/s PV Peak Velocity 91.5 cm/s FINDINGS Left Ventricle Normal left ventricular size, systolic function and wall thickness, with no regional wall motion abnormalities. Left ventricular ejection fraction is estimated at 60 %. Grade I/IV diastolic dysfunction (abnormal relaxation filling pattern), normal to mildly elevated filling pressures. Right Ventricle The right ventricle is normal in size and function. Right Atrium The right atrium is normal in size. Left Atrium The left atrium is normal in size. Mitral Valve Moderately thickened mitral valve. No mitral valve stenosis. Trace mitral valve regurgitation. Aortic Valve Moderate aortic valve calcification. No aortic valve stenosis. No aortic valve regurgitation. Tricuspid Valve Structurally normal tricuspid valve without significant stenosis or regurgitation. Pulmonary artery systolic pressure is normal. Pulmonic Valve Structurally normal pulmonic valve without significant stenosis. There is no pulmonic regurgitation. Pericardium Normal pericardium without effusion. Aorta Normal ascending aorta dimension. IVC The inferior vena cava appears normal. CONCLUSIONS Normal left ventricular size, systolic function and wall thickness, with no regional wall motion abnormalities. Left ventricular ejection fraction is estimated at 60 %. Grade I/IV diastolic dysfunction (abnormal relaxation filling pattern), normal to mildly elevated filling pressures. No significant valve abnormalities. There is no pericardial effusion. Right atrial pressure is around 5 mm of mercury. Maryan Altamirano MD (Electronically Signed) Final Date: 08 April 2024 17:10 S
== END 2024-04-07 13:56 | disposition home or self-care (01) ==
LOC: RAD 13:56
PROVIDERS: PCP Family Medicine; Visit Provider Internal Medicine
DX: R06.02 Shortness of breath (principal); R93.1 Abnormal findings on diagnostic imaging of heart and coronary circulation; I05.9 Rheumatic mitral valve disease, unspecified; I70.0 Atherosclerosis of aorta
CPT/HCPCS: 93306

== ENCOUNTER → 2024-04-12 09:18 | Outpatient (BNVA) | payer MEDICARE, SELFPAY ==
[2023-12-03 09:47] VITALS: BP 123/65; BMI 36.3
== END ==
PROVIDERS: PCP Family Medicine; Visit Provider Family Medicine
DX: E11.42 Type 2 diabetes mellitus with diabetic polyneuropathy (principal); Z79.4 Long term (current) use of insulin; E03.9 Hypothyroidism, unspecified
CPT/HCPCS: 80053; 80061; 83036; 83721; 84439; 84443; 84481

== ENCOUNTER → 2024-04-20 10:23 | Outpatient (BNVA) | payer MEDICARE, SELFPAY ==
[2024-04-13 09:47] VITALS: BP 126/56; BMI 37.5
== END ==
PROVIDERS: PCP Family Medicine; Visit Provider Internal Medicine
DX: E11.42 Type 2 diabetes mellitus with diabetic polyneuropathy (principal); Z79.4 Long term (current) use of insulin; E78.2 Mixed hyperlipidemia
CPT/HCPCS: 99214

== ENCOUNTER 2024-07-17 12:52 | Outpatient (CLI) | payer MEDICARE, MEDICAID, SELFPAY ==
[2024-04-13 09:47] VITALS: BP 126/56; BMI 37.5
--- NOTE | 2024-07-17 13:05 | CT_ITS ---
WS: [id number] CT THORACIC SPINE TECHNIQUE: Noncontrast CT of the thoracic spine with coronal and sagittal reformatted images. CLINICAL INFORMATION: LUMBAR SPONDYLOSIS/INVERT DISC W/O RADICULOPATHY COMPARISON: None. DLP: 715.[address] scans at [facility] use at least one of these dose optimization techniques: automated exposure control; mA and/or kV adjustment per patient size (includes targeted exams where dose is matched to clinical indication); or iterative reconstruction. FINDINGS: Mild thoracic curve. Moderate thoracic kyphosis. A few Schmorl's nodes in the mid and lower thoracic spine. No acute appearing compression fractures. Spinal canal is patent. No high-grade central canal stenosis. Mild to moderate spondylitic changes. Mild disc osteophyte complex at T11-T12 with a RIGHT paracentral disc osteophyte protrusion and mild central canal stenosis. Aortic stent partially visualized. Aortic calcification. Coronary calcification. Adrenal glands are normal. Prior cholecystectomy. Small esophageal hiatal hernia. CT/CT thoracic spin wo con* [id number] IMPRESSION: 1. Mild thoracic curve. Moderate thoracic kyphosis. No acute compression fract ures. 2. A few Schmorl's nodes in the mid and lower thoracic spine. 3. Mild to moderate spondylitic changes. 4. Disc osteophyte complex T11-T12 with a RIGHT paracentral disc osteophyte pr otrusion and narrowing of the RIGHT subarticular recess. Mild central canal demond nosis. 5. No other acute findings.
--- NOTE | 2024-07-17 13:05 | CT_ITS ---
WS: [id number] CT LUMBAR SPINE TECHNIQUE: Noncontrast CT of the lumbar spine with coronal and sagittal reformatted images. CLINICAL INFORMATION: LUMBAR SPONDYLOSIS COMPARISON: CT 2009 DLP: 1854.[address] scans at [facility] use at least one of these dose optimization techniques: automated exposure control; mA and/or kV adjustment per patient size (includes targeted exams where dose is matched to clinical indication); or iterative reconstruction. FINDINGS: Mild lumbar curve. No acute compression. No high-grade central canal stenosis. L1-L2: No significant disc bulging. Spinal canal and foramina are patent. L2-L3: Mild annular bulging. Mild facet arthropathy. Spinal canal and foramen are patent. L3-L4: Mild annular bulging. Spinal canal and foramen are patent. Moderate facet arthropathy. Slight narrowing of the RIGHT greater than LEFT subarticular recess. L4-L5: Mild annular bulging. Slight effacement of the ventral thecal sac. Moderate facet arthropathy. Mild LEFT foraminal narrowing. L5-S1: Mild annular bulging. Tiny central protrusion. Spinal canal and foramen are patent. Moderate facet arthropathy. Visualized pelvic bony structures: Normal. Paravertebral soft tissues: Normal. Adrenal glands are normal. Splenic artery calcification. RIGHT renal cyst measures 3.[address]/CT lumbar spine wo con* [id number] IMPRESSION: 1. Mild lumbar curve. No acute compression. 2. No high-grade central canal stenosis. 3. Mild spondylitic changes described above.
== END 2024-07-17 12:53 | disposition home or self-care (01) ==
PROVIDERS: PCP Family Medicine; Visit Provider Nurse Practitioner Acute Care
DX: M47.816 Spondylosis without myelopathy or radiculopathy, lumbar region (principal); M51.17 Intervertebral disc disorders with radiculopathy, lumbosacral region; M43.8X4 Other specified deforming dorsopathies, thoracic region; M40.294 Other kyphosis, thoracic region; M51.44 Schmorl's nodes, thoracic region; M47.894 Other spondylosis, thoracic region; M25.78 Osteophyte, vertebrae; M51.24 Other intervertebral disc displacement, thoracic region; M48.04 Spinal stenosis, thoracic region; Z96.89 Presence of other specified functional implants; I70.0 Atherosclerosis of aorta; I25.10 Atherosclerotic heart disease of native coronary artery without angina pectoris; Z90.49 Acquired absence of other specified parts of digestive tract; K44.9 Diaphragmatic hernia without obstruction or gangrene; M43.8X6 Other specified deforming dorsopathies, lumbar region; M51.369 Other intervertebral disc degeneration, lumbar region without mention of lumbar back pain or lower extremity pain; M47.896 Other spondylosis, lumbar region; M51.379 Other intervertebral disc degeneration, lumbosacral region without mention of lumbar back pain or lower extremity pain; M47.897 Other spondylosis, lumbosacral region; I70.8 Atherosclerosis of other arteries; N28.1 Cyst of kidney, acquired
CPT/HCPCS: 72128; 72131

== ENCOUNTER → 2024-07-19 10:17 | Outpatient (BNVA) | payer MEDICARE, MEDICAID, SELFPAY ==
[2024-04-13 09:47] VITALS: BP 126/56; BMI 37.5
== END ==
PROVIDERS: PCP Family Medicine; Visit Provider Internal Medicine
DX: E11.42 Type 2 diabetes mellitus with diabetic polyneuropathy (principal); Z79.4 Long term (current) use of insulin; E78.2 Mixed hyperlipidemia
CPT/HCPCS: 99214

== ENCOUNTER 2024-08-01 15:05 | Emergency (ER) | payer OTHER, MEDICAID, SELFPAY ==
[2024-04-13 09:47] VITALS: BP 126/56; BMI 37.5
[2024-08-01 15:07] VITALS: BP 105/64; PULSE 74; RESP 16; TEMP 36.7; O2SAT 96; BMI 36.7
[2024-08-01 15:36] LABS: Basophils # 0.1 10^3/uL (0.0-0.1); Basophils % 0.9 %; Eosinophils # 0.5 10^3/uL (0.0-0.8); Eosinophils % 3.9 %; Hematocrit 42.9 % (36-47); Lymphocytes # 3.8 10^3/uL (0.8-4.8); Lymphocytes % 27.7 %; Mean Corpuscular HGB Conc 33.3 g/dL (30-55); Mean Corpuscular Hemoglobin 28.1 pg (27-33); Mean Corpuscular Volume 84.3 fl (85-98); Mean Platelet Volume 9.7 fL (7.4-10.4); Monocytes % 7.1 %; Neutrophils # 8.14 10^3/uL (1.8-7.7); Neutrophils % 59.8 %; Nucleated Red Blood Cells % 0 %; Platelet Count 296 10^3/cmm (157-399); Red Blood Count 5.09 10^6/uL (3.85-5.65); Red Cell Distribution Width 16.8 % (12.1-15.1); White Blood Count 13.59 10^3/uL (3.29-11.43)
[2024-08-01 15:51] LABS: Bilirubin Urine Negative (Negative); Blood Urine 2+ (Negative); Glucose Urine UA Negative (Normal); Ketones Urine Negative (Negative); Leukocyte Esterase Urine Negative (Negative); Nitrate Urine Negative (Negative); Protein Urine 2+ (Negative); Specific Gravity, Urine 1.015 (1.005-1.030); Urine Appearance Clear (CLEAR); Urine Color Yellow (Yellow); Urobilinogen Urine 0.2 mg/dL (Negative)
[2024-08-01 15:54] LABS: Add Urine Microscopic? YES; Bacteria Urine None Seen /hpf; Hyaline Casts Urine 0.81 /lpf; RBC Urine 21-50 /hpf (0-2); Squamous Epithelial Cell Urine 0-5 /hpf (0-5); WBC Urine 0-5 /hpf (0-5)
[2024-08-01 15:55] LABS: Add Urine Culture? Yes
[2024-08-01 15:56] LABS: Alanine Aminotransferase 28 U/L (0-33); Alkaline Phosphatase 161 U/L (35-105); Anion Gap 15.8 (5-19); Aspartate Amino Transferase 22 U/L (0-32); Blood Urea Nitrogen 25 mg/dL (8-23); Calcium 8.9 mg/dL (8.5-10.5); Carbon Dioxide 27 mmol/L (22-29); Chloride 96 mmol/L (98-107); Creatinine Clr Calc Pharmacy 62.0473; Globulin 3.3 g/dL (1.3-4.6); Glomerular Filtration Rate 56.4 mL/min (90-130); Glucose 186 mg/dL (65-115); Lipase 29 U/L (13-60); Osmolality Calculated 289 mOsm/kg (285-295); Potassium 3.8 mmol/L (3.5-5.1); Sodium 135 mmol/L (136-145); Total Bilirubin 0.2 mg/dL (0.15-1.2); Total Protein 7.3 g/dL (6.6-8.7)
--- NOTE | 2024-08-01 16:15 | CTR_ITS ---
PROCEDURE INFORMATION: Exam: CT Abdomen And Pelvis With Contrast Exam date and time: 08/01/2024 4:35 PM Age: 59 years old Clinical indication: Nausea and vomiting; Abdominal pain; Localized; Prior surgery; Surgery date: 6+ months; Surgery type: Gb. Hysterectomy. Left sided abd pain with n/v. TECHNIQUE: Imaging protocol: Computed tomography of the abdomen and pelvis with contrast. Radiation optimization: All CT scans at this facility use at least one of these dose optimization techniques: automated exposure control; mA and/or kV adjustment per patient size (includes targeted exams where dose is matched to clinical indication); or iterative reconstruction. Contrast material: OMNI 350; Contrast volume: 100 ml; Contrast route: INTRAVENOUS (IV); COMPARISON: CT lumbar spine wo con* [id number] 07/17/2024 1:50 PM RADIATION DOSE METRICS: Total DLP (mGy-cm): 905.17 FINDINGS: Liver: Hepatic steatosis and hepatomegaly. Gallbladder and biliary ducts: Surgically absent gallbladder. No significant intrahepatic biliary ductal dilatation. Prominent common bile duct measuring up to [address] evidence of choledocholithiasis. Pancreas: Normal. No ductal dilation. Spleen: Normal. No splenomegaly. Adrenal glands: Normal. No mass. Kidneys and ureters: Simple right renal simple right renal cyst measuring 4.4 cm. No follow-up indicated. No hydronephrosis or nephrolithiasis. No ureteral stones. Stomach and bowel: Normal caliber of the bowel without evidence of obstruction. No focal bowel wall thickening or inflammation. Moderate fecal load in the colon. Appendix: Appendix is unremarkable. Intraperitoneal space: Unremarkable. No free air. No significant fluid collection. Vasculature: Unremarkable. No abdominal aortic aneurysm. Lymph nodes: Unremarkable. No enlarged lymph nodes. Urinary bladder: Unremarkable as visualized. Reproductive: Surgically absent uterus. No adnexal masses. Bones/joints: Unremarkable. No acute fracture. Soft tissues: Unremarkable. CT/CT abdomen pelvis w con* [id number] IMPRESSION: 1. No acute findings in the abdomen or pelvis. 2. Surgically absent gallbladder. Mild secondary common bile duct ectasia. CT evidence of choledocholithiasis or pancreatic head masses. 3. Hepatic steatosis and hepatomegaly. 4. Simple right renal simple right renal cyst measuring 4.4 cm. No follow-up indicated. COMMENTS: Consistent with the [employer]'s Incidental Findings Committee white paper (J Am Chadd Radiol 2018): Any incidental renal lesion less than 1 cm or classified as too small to characterize, or any incidental cystic renal lesion characterized as simple-appearing, is likely benign. No follow-up imaging is recommended for these lesions per consensus recommendations based on imaging criteria.
--- NOTE | 2024-08-01 16:16 | ED_ITS ---
HPI - Nausea/Vomiting/Diarrhea 2 General: Chief complaint: Nausea/Vomiting/Diarrhea Stated complaint: vomitting Time Seen by Provider: 08/01/24 16:09 Source: patient Mode of arrival: ambulatory Limitations: no limitations History of Present Illness: 59-year-old female states been having ab dominal pain for the last 3 days she states she was seen at [facility] yesterday where thought she may have a GI bleed is what she states she thinks she received blood but then left AMA patient is not a very good historian states her pain did worsen today it is in her left lower quadrant sharp in nature denies any blood in her stool today denies any vomiting. Associated nausea: Yes Associated symtoms: Reports nausea; Denies chest pain or headache(s) Related Data Home Medications ?Medication ?Instructions ?Recorded ?Confirmed aspirin 81 mg tablet,delayed 81 mg PO DAILY 09/27/19 0 08/01/24 release (Adult Low Dose Aspirin) pregabalin 150 mg capsule (Lyrica) 150 mg PO BID 07/0808/01/24 levothyroxine 75 mcg tablet 75 mcg PO DAILY 08/01/24 0 08/01/24 mirtazapine 45 mg tablet 45 mg PO BEDTIME 08/01/24 oxycodone-acetaminophen 10 mg-325 See Rx Instructions .Route .COMPLEX 08/01/24 08/01/24 mg tablet ropinirole 1 mg tablet 1 mg PO BID 08/01/24 5 Previous Rx's ?Medication ?Instructions ?Recorded albuterol sulfate 2.5 mg/3 mL 2.5 mg (3 mL) inhalation Q6H PRN 03/24/23 (0.083 %) solution for nebulization shortness of breat h or wheezing #150 vials ibuprofen 600 mg tablet (IBU) 600 mg PO TID PRN pain 3 0 days #90 07/13/23 tabs epinephrine 0.3 mg/0.3 mL 0.3 mg (0.3 mL) IM Q4H PRN 0 07/21/23 injection, auto-injector (EpiPen anaphylaxis #2 ea 2-Daron) atorvastatin 40 mg tablet 40 mg PO DAILY 90 days #90 t abs 10/18/23 amlodipine 5 mg tablet 5 mg PO DAILY 90 days #90 ta bs 11/09/23 albuterol sulfate 90 mcg/actuation 1 inh inhalation QI D PRN shortness 04/12/24 aerosol inhaler (Ventolin HFA) of breath or wheezing 3 0 days #18 grams linaclotide 72 mcg capsule 72 mcg PO DAILY #30 caps (Linzess) lisinopril 10 1 tab PO DAILY 90 days #90 t abs 04/12/24 mg-hydrochlorothiazide 12.5 mg tablet meloxicam 15 mg tablet 15 mg PO DAILY #90 tabs 03/23 05/16 metoprolol succinate 50 mg 150 mg (3 x 50 mg) PO DAILY 90 04/12/24 tablet,extended release 24 hr days #180 tabs pantoprazole 40 mg tablet,delayed 40 mg PO BID 90 days #180 tabs 04/12/24 release promethazine 25 mg tablet 25 mg PO BID 90 days #180 ta bs 04/12/24 ropinirole 0.25 mg tablet 0.25 mg PO BID 90 days #180 tabs 04/12/24 insulin degludec 100 unit/mL (3 80 unit (0.8 mL) SUBCU T DAILY #75 04/20/24 mL) subcutaneous pen (Tresiba mL FlexTouch U-100 insulin) acarbose 100 mg tablet See Rx Instructions .Route 0 06/09/24 .COMPLEX #90 tabs tirzepatide 2.5 mg/0.5 mL 2.5 mg (0.5 mL) SUBCUT Q7D 1 month 07/19/24 subcutaneous pen injector #2.5 mL (Jaret) buspirone 10 mg tablet 10 mg PO TID #90 tabs duloxetine 30 mg capsule,delayed See Rx Instructions . Route 07/20/24 release .COMPLEX #30 caps duloxetine 60 mg capsule,delayed See Rx Instructions . Route 07/20/24 release .COMPLEX #30 caps paroxetine HCl 40 mg tablet 40 mg PO DAILY 30 days #30 tabs 07/20/24 hydrocodone 5 mg-acetaminophen 325 1 tab PO Q6H PRN pa in #14 tabs 08/01/24 mg tablet ondansetron 4 mg disintegrating 4 mg PO Q6H PRN nausea and 08/01/24 tablet vomiting #14 tabs Allergies Allergy/AdvReac Type Severity Reaction Status Date / Time morphine Allergy Severe ADR-Agitate Verified 07/18/24 16:06 d quetiapine (From Seroquel) AdvReac Mild ADR-Halluci Verified 07/18/24 16:06 nating amitriptyline AdvReac Unknown ADR-Nightma Verified 07/18/24 16:06 re trazodone AdvReac ADR-Nightma Verified 07/18/24 16:06 re Review of Systems 2 Const: Denies: fever(s), chills, body aches or change in appetite ENMT: Denies: throat pain or dental pain Card: Denies: chest pain Resp: Denies: dyspnea GI: Reports: abdominal pain and nausea; Denies: vomiting or diarrhea Musc: Denies: neck pain or back pain Skin/Breast: Denies: rash Neuro: Denies: headache(s) PFSH ED 2 PFSH: Medical History History of peptic ulcer disease Insomnia Psychiatric care Hypoxia COVID-19 Chronic migraine without aura Hypothyroidism Nicotine dependence, cigarettes, with other nicotine-induced disorders Obstructive sleep apnea (adult) (pediatric) Bipolar II disorder Restless leg syndrome COPD (chronic obstructive pulmonary disease) Bypass graft stenosis Subclavian artery GERD (gastroesophageal reflux disease) IBS (irritable bowel syndrome) FELIPA (generalized anxiety disorder) Bipolar affective disorder Hyperlipidemia Diabetes Does not tolerate metfromin. Subclavian arterial stenosis HOCM (hypertrophic obstructive cardiomyopathy) PVD (peripheral vascular disease) HTN (hypertension) Surgical History History of esophagogastroduodenoscopy (EGD) (~2014) History of colonoscopy (~2018) Tubal ligation status H/O: hysterectomy Family History Mother Cancer Father Cancer Social History Smoking and tobacco/nicotine status: current every day tobacco/nicotine user cigarettes Packs smoked per day: 1 Quit status (tobacco/nicotine): has tried quititng Second hand smoke exposure: No Alcohol intake: never Substance/Drug Use: never Adopted: No Caregiver/support person: Yes Lives independently: Yes Household members: significant other Housing: House Marital status: Life Partner Highest education level completed: High School Graduate service: No Current occupational status: disabled Current occupational exposures/hazards: No Pets and animals: No Sexually active: Yes Do you think of yourself as: Straight/Heterosexual Current gender identity: Female Yary/Latter Day: None Female Reproductive History: Spontaneous abortions: No Physical Exam 2 Const: COMMON NORMALS: no acute distress, patient oriented x3 and healthy appearing HENMT: COMMON NORMALS: normocephalic and atraumatic HEAD & SCALP: n ormocephalic and atraumatic Eye: COMMON NORMALS: conjunctivae normal CONJUNCTIVA: Yes conjunctivae normal Neck/C-Spine: COMMON NORMALS: full ROM and supple Chest: COMMONS NORMALS: normal inspection of the chest Resp: COMMON NORMALS: normal respiratory effort Cardio: COMMON NORMALS: regular rate, regular rhythm and No murmurs present (Cardio) RATE: regular rate RHYTHM: regular rhythm GI: COMMON NORMALS: Normal to inspection, nondistended, normoactive bowel sounds present, Soft to palpation and no masses PALPATION: Yes Soft to palpation OTHER: diffuse tenderness Extremity: COMMON NORMALS: normal to inspection and full ROM Neuro: COMMON NORMALS: patient oriented x3, moves all extremities and no focal motor deficits Psych: COMMON NORMALS: mental status grossly normal, Normal thought process present and cooperative THOUGHT PROCESS: Normal thought process present Skin: COMMON NORMALS: no rashes or lesions noted and no wounds GENERAL SKIN EXAM: no rashes or lesions noted Course 2 Vital Signs: Vital signs: Vital Signs Temperature 98.1 F 08/01/24 15:07 Pulse Rate 68 08/01/24 18:04 Respiratory Rate 16 08/01/24 18:04 Blood Pressure 127/60 08/01/24 18:04 Pulse Oximetry 95 08/01/24 18:04 Oxygen Delivery Me thod Room Air 08/01/24 17:58 MDM - Nausea/Vomiting/Diarrhea Medical Decision Making Patient presents for abdominal pain blood work CT here are normal pain is much improved she stable for discharge we will get her follow-up with surgery she is to return if worsening Medical Records I reviewed the patient's medical records. Lab Data I reviewed the patient's lab results. 08/01/24 15:29 08/01/24 15:29 Radiology Impressions Abdomen/Pelvis CT 08/01/24 16:15 IMPRESSION: 1. No acute findings in the abdomen or pelvis. 2. Surgically absent gallbladder. Mild secondary common bile duct ectasia. CT evidence of choledocholithiasis or pancreatic head masses. 3. Hepatic steatosis and hepatomegaly. 4. Simple right renal simple right renal cyst measuring 4.4 cm. No follow-up indicated. COMMENTS: Consistent with the [employer]'s Incidental Findings Committee white paper (J Am Chadd Radiol 2018): Any incidental renal lesion less than 1 cm or classified as too small to characterize, or any incidental cystic renal lesion characterized as simple-appearing, is likely benign. No follow-up imaging is recommended for these lesions per consensus recommendations based on imaging criteria. Laboratory Results WBC 13.59 10^3/uL (3.29-11.43) H 08/01/24 15: RBC 5.09 10^6/uL (3.85-5.65) 08/01/24 15: Hgb 14.30 g/dL (11.27-16.99) 08/01/24 15: Hct 42.9 % (36-47) 08/01/24 15: MCV 84.3 fl (85-98) L 08/01/24 15: MCH 28.1 pg (27-33) 08/01/24 15: MCHC 33.3 g/dL (30-55) 08/01/24 15: RDW 16.8 % (12.1-15.1) H 08/01/24 15: Plt Count 296 10^3/cmm (157-399) 08/01/24 15: MPV 9.7 fL (7.4-10.4) 08/01/24 15: Neut % (Auto) 59.8 % 08/01/24 15: Lymph % (Auto) 27.7 % 08/01/24 15: Mcdonald % (Auto) 7.1 % 08/01/24: Eos % (Auto) 3.9 % 08/01/24: Baso % (Auto) 0.9 % 08/01/24 15: Neut # (Auto) 8.14 10^3/uL (1.8-7.7) H 08/01/24 15: Lymph # (Auto) 3.8 10^3/uL (0.8-4.8) 08/01/24 15: Mcdonald # (Auto) 1.0 10^3/uL (0.2-0.9) H 08/01/24 15: Eos # (Auto) 0.5 10^3/uL (0.0-0.8) 08/01/24 15: Baso # (Auto) 0.1 10^3/uL (0.0-0.1) 08/01/24 15: Nucleated RBC % (auto) 0 % 08/01/24: Nucleated RBCs # 0.0 /100WBC 08/01/24 15: Sodium 135 mmol/L (136-145) L 08/01/24 15: Potassium 3.8 mmol/L (3.5-5.1) 08/01/24: Chloride 96 mmol/L (98-107) L 08/01/24 15: Carbon Dioxide 27 mmol/L (22-29) 08/01/24 15: Anion Gap 15.8 (5-19) 08/01/24: BUN 25 mg/dL (8-23) H 08/01/24 15: Creatinine 1.0 mg/dL (0.5-0.9) H 08/01/24 15: GFR Calculation 56.4 mL/min (90-130) L 08/01/24 15: Glucose 186 mg/dL (65-115) H 08/01/24 15: Calculated Osmolality 289 mOsm/kg (285-295) 08/01/24: Lactic Acid 1.1 mmol/L (0.5-2.2) 08/01/24: Calcium 8.9 mg/dL (8.5-10.5) 08/01/24 15: Total Bilirubin 0.2 mg/dL (0.15-1.2) 08/01/24 15: AST 22 U/L (0-32) 08/01/24: ALT 28 U/L (0-33) 08/01/24 15: Alkaline Phosphatase 161 U/L (35-105) H 08/01/24 15: Total Protein 7.3 g/dL (6.6-8.7) 08/01/24 15: Albumin 4.0 g/dL (3.5-5.2) 08/01/24 15:29 Globulin 3.3 g/dL (1.3-4.6) 08/01/24 15:29 Lipase 29 U/L (13-60) 08/01/24 15:29 Urine Color Yellow (Yellow) 08/01/24 15:45 Urine Appearance Clear (CLEAR) 08/01/24 15:45 Urine pH 6.0 (5-7) 08/01/24 15:45 Ur Specific Cherry Log 1.015 (1.005-1.030) 08/01/24 15:45 Urine Protein 2+ (Negative) A 08/01/24 15:45 Urine Glucose (UA) Negative (Normal) 08/01/24 15:45 Urine Ketones Negative (Negative) 08/01/24 15:45 Urine Blood 2+ (Negative) A 08/01/24 15:45 Urine Nitrate Negative (Negative) 08/01/24 15:45 Urine Bilirubin Negative (Negative) 08/01/24 15:45 Urine Urobilinogen 0.2 mg/dL (Negative) 08/01/24 15:45 Ur Leukocyte Esterase Negative (Negative) 08/01/24 15:45 Urine RBC 21-50 /hpf (0-2) H 08/01/24 15:45 Urine WBC 0-5 /hpf (0-5) 08/01/24 15:45 Ur Squamous Epith Cells 0-5 /hpf (0-5) 08/01/24 15:45 Amorphous Sediment Not Reportable 08/01/24 15:45 Urine Bacteria None seen /hpf (NONE) 08/01/24 15:45 Hyaline Casts 0.81 /lpf 08/01/24 15:45 All radiology interpretation(s) finalized by discharge Discharge Plan Discharge Patient Disposition: Home Clinical Impression: Abdominal pain, Vomiting Condition: Stable Prescriptions: New hydrocodone-acetaminophen 5-325 mg tablet 1 tab PO Q6H PRN (Reason: pain) Qty: 14 0RF ondansetron 4 mg tablet,disintegrating 4 mg PO Q6H PRN (Reason: nausea and vomiting) Qty: 14 0RF No Action aspirin [Adult Low Dose Aspirin] 81 mg tablet,delayed release (DR/EC) 81 mg PO DAILY ibuprofen [IBU] 600 mg tablet 600 mg PO TID PRN (Reason: pain) 30 Days Qty: 90 2RF atorvastatin 40 mg tablet 40 mg PO DAILY 90 Days Qty: 90 3RF epinephrine [EpiPen 2-Daron] 0.3 mg/0.3 mL auto-injector 0.3 mg IM Q4H PRN (Reason: anaphylaxis) Qty: 2 0RF amlodipine 5 mg tablet 5 mg PO DAILY 90 Days Qty: 90 2RF albuterol sulfate [Ventolin HFA] 90 mcg/actuation HFA aerosol inhaler 1 inh INHALATION QID PRN (Reason: shortness of breath or wheezing) 30 Days Qty: 18 5RF Rx Instructions: Generic brand Linzess 72 mcg capsule 72 mcg PO DAILY Qty: 30 11RF lisinopril-hydrochlorothiazide 10-12.5 mg tablet 1 tab PO DAILY 90 Days Qty: 90 2RF meloxicam 15 mg tablet 15 mg PO DAILY Qty: 90 2RF metoprolol succinate 50 mg tablet extended release 24 hr 150 mg PO DAILY 90 Days Qty: 180 2RF Rx Instructions: 2 in AM, 1 in PM pantoprazole 40 mg tablet,delayed release (DR/EC) 40 mg PO BID 90 Days Qty: 180 1RF promethazine 25 mg tablet 25 mg PO BID 90 Days Qty: 180 2RF ropinirole 0.25 mg tablet 0.25 mg PO BID 90 Days Qty: 180 3RF insulin degludec [Tresiba FlexTouch U-100] 100 unit/mL (3 mL) insulin pen 80 unit SUBCUT DAILY Qty: 75 0RF Mounjaro 2.5 mg/0.5 mL pen injector 2.5 mg SUBCUT Q7D 30 Days Qty: 2.5 2RF pregabalin [Lyrica] 150 mg capsule 150 mg PO BID buspirone 10 mg tablet 10 mg PO TID Qty: 90 3RF duloxetine 60 mg capsule,delayed release(DR/EC) See Rx Instructions .ROUTE .COMPLEX Qty: 30 5RF Dose Instruction: TAKE ONE CAPSULE BY MOUTH DAILY IN THE MORNING FOR 30 DAYS Rx Instructions: TAKE ONE CAPSULE BY MOUTH DAILY IN THE MORNING FOR 30 DAYS with the 30mg paroxetine HCl 40 mg tablet 40 mg PO DAILY 30 Days Qty: 30 3RF duloxetine 30 mg capsule,delayed release(DR/EC) See Rx Instructions .ROUTE .COMPLEX Qty: 30 5RF Dose Instruction: 30 MG ORALLY DAILY IN ADDITION TO 60MG = 90MG DAILY Rx Instructions: 30 MG ORALLY DAILY IN ADDITION TO 60MG = 90MG DAILY albuterol sulfate 2.5 mg /3 mL (0.083 %) solution for nebulization 2.5 mg inhalation Q6H PRN (Reason: shortness of breath or wheezing) Qty: 150 1RF acarbose 100 mg tablet See Rx Instructions .ROUTE .COMPLEX Qty: 90 0RF Dose Instruction: TAKE ONE TABLET BY MOUTH THREE TIMES A DAY Rx Instructions: TAKE ONE TABLET BY MOUTH THREE TIMES A DAY ropinirole 1 mg tablet 1 mg PO BID levothyroxine 75 mcg tablet 75 mcg PO DAILY oxycodone-acetaminophen 10-325 mg tablet See Rx Instructions .ROUTE .COMPLEX Rx Instructions: TAKE 1-2 TABLETS BY MOUTH EVERY 4-6 HOURS NEEDED FOR PAIN. MAX 6 TABLETS PER DAY. HOLD WITHIN 4 HOURS OF PLANNED SLEEP mirtazapine 45 mg tablet 45 mg PO BEDTIME Discharge Orders: Discharge ED (Routine); Ordered 08/01/24 Ordered By: Tania Stone Referrals: Mack Anand MD [Physician, General Surgery] - 4-7 days Abigail Waldrop MD [Primary Care Provider, Family Practice] Discharge Diet: Advance as tolerated Discharge Activity: Resume usual activity Patient Instructions: Acute Nausea and Vomiting (ED), Abdominal Pain (ED) Print Language: [place] Citizen Coding Level of Care Code ED Dye Machine Operator for Bryant Chavez
[2024-08-01] MEDS: iohexol 350 mg/mL 500 mL Btl (per mL) IV (16:43)
[2024-08-01] MEDS: HYDROmorphone 0.5 MG/0.5 ML INJ IVP (17:12)
[2024-08-01] MEDS: sodium chloride 0.9% 1,000 ML 999 ML IV (17:12)
[2024-08-01] MEDS: ondansetron 2 mg/ML SDV 2 mL 4 MG IVP (17:12)
[2024-08-01 17:20] VITALS: BP 91/49; PULSE 65; RESP 16; O2SAT 95
--- NOTE | 2024-08-01 17:31 | PC.PHAR ---
Patient has a few bags with her medications in them . Some she has has been changed or told to stop.
[2024-08-01 17:45] LABS: Lactic Sepsis W/Reflex 1.1 mmol/L (0.5-2.2)
[2024-08-01 17:58] VITALS: BP 97/56; PULSE 70; RESP 16; O2SAT 95
[2024-08-01 18:04] VITALS: BP 127/60; PULSE 68; RESP 16; O2SAT 95
--- NOTE | 2024-08-02 07:41 | DCPLANNER ---
Message sent to General Surgery-Patient presents for abdominal pain blood work CT here are normal pain is much improved she stable for discharge we will get her follow-up with surgery she is to return if worsening
== END 2024-08-01 18:35 | disposition home or self-care (01) ==
PROVIDERS: Emergency Provider Emergency Medicine; PCP Family Medicine
DX: R10.9 Unspecified abdominal pain (principal); R11.10 Vomiting, unspecified; Z79.82 Long term (current) use of aspirin; Z79.4 Long term (current) use of insulin; F17.210 Nicotine dependence, cigarettes, uncomplicated; E78.5 Hyperlipidemia, unspecified; E11.9 Type 2 diabetes mellitus without complications; I10 Essential (primary) hypertension; J44.9 Chronic obstructive pulmonary disease, unspecified
CPT/HCPCS: 36415; 74177; 80053; 81001; 83605; 83690; 85025; 87086; 96361; 96374; 96375; 99285; J1171; J2405; J7030

== ENCOUNTER → 2024-08-15 13:26 | Outpatient (BNVA) | payer OTHER, MEDICAID, SELFPAY ==
[2024-04-13 09:47] VITALS: BP 126/56; BMI 37.5
== END ==
PROVIDERS: PCP Family Medicine; Referring Provider Emergency Medicine; Visit Provider Surgery
DX: K27.9 Peptic ulcer, site unspecified, unspecified as acute or chronic, without hemorrhage or perforation (principal); K59.04 Chronic idiopathic constipation; R11.0 Nausea; K21.9 Gastro-esophageal reflux disease without esophagitis
CPT/HCPCS: 99204

== ENCOUNTER → 2024-08-29 14:09 | Outpatient (BNVA) | payer OTHER, MEDICAID, SELFPAY ==
[2024-04-13 09:47] VITALS: BP 126/56; BMI 37.5
== END ==
PROVIDERS: PCP Family Medicine; Visit Provider Orthopaedic Surgery
DX: M54.9 Dorsalgia, unspecified (principal)
CPT/HCPCS: 72110; 99203

== ENCOUNTER 2024-09-06 09:32 | Day surgery (SDC) | payer OTHER, MEDICAID, SELFPAY ==
[2024-04-13 09:47] VITALS: BP 126/56; BMI 37.5
[2024-09-06 10:01] VITALS: BP 111/48; PULSE 65; RESP 18; TEMP 36.2; O2SAT 96; BMI 36.2
[2024-09-06 10:25] LABS: Glucose Point of Care 268 mg/dL (70-110)
[2024-09-06] MEDS: sodium chloride 0.9% 1,000 ML 15 ML IV (10:30)
--- NOTE | 2024-09-06 10:45 | P.HPUD_ITS ---
Surgery/Procedure H&P Update DATE OF PROCEDURE: September 06, 2024 DATE H&P PERFORMED: 08/15/24 H&P UPDATE INFORMATION: I have reviewed H&P completed within last 30 days, I have examined patient prior to procedure, No changes to prior documentation, H&P is in [facility] EMR on date indicated and Risks and benefits of the procedure reviewed PLANNED PROCEDURE: Operation Date: 09/06/24 11:30 Proposed Procedures p EGD [id number] G0105 K27.9 K59.04 R11.0(Not Applicable) - Mack Anand MD s Colonoscopy(Not Applicable) - Mack Anand MD
--- NOTE | 2024-09-06 11:16 | ANES.PREANE2 ---
Pre-Anesthetic Assessment Height/Weight: Height 1.57 m Weight 89.811 kg Temp Pulse Resp BP Pulse Ox O2 Del Method 97.2 F L 65 18 111/48 96 Room Air 09/06/24 10:01 09/06/24 10:09/06/24 10:01 09/06/24 10:01 09/06/24 10:09/06/24 10:01 Operation Date: 09/06/24 11:30 Proposed Procedures p EGD [id number] G0105 K27.9 K59.04 R11.0(Not Applicable) - Mack Anand MD s Colonoscopy(Not Applicable) - Mack Anand MD Familial anesthetic complications: None Was Beta Ronel taken within 24 hours: Yes Was Clonidine taken within 24 hours: N/A Last intake: Intake Last Liquid Date 09/05/24 Last Liquid Time 23:00 Last Solid Date 09/04/24 Last Solid Time 12:00 Social Tobacco and No alcohol 1 pack(s) per day Exam alert, oriented x 3 and regular rate & rhythm BBS diminished Airway Submandibular: within normal limits Cervical ROM: within normal limits Mallampati: Class II Comments: Comments: Edentulous History/ROS No significant history except as noted and No significant complaints Pulmonary Chronic Obstructive Pulmonary Disease, Exertional Dyspnea and Sleep Apnea 3L O2 at night, PRN throughout the day. Uses O2 during the day 3x/week CV/HEM Arrythmia, Coronary Artery Disease and Hypertension CONCLUSIONS Normal left ventricular size, systolic function and wall thickness, with no regional wall motion abnormalities. Left ventricular ejection fraction is estimated at 60 %. Grade I/IV diastolic dysfunction (abnormal relaxation filling pattern), normal to mildly elevated filling pressures. No significant valve abnormalities. There is no pericardial effusion. Right atrial pressure is around 5 mm of mercury. Aortic stent 2 years ago None reported Hepatic Enlarged liver GI Gastroesophageal Reflux Disease (No symptoms this morning) and Hiatal Hernia Metabolic Diabetes Mellitus, Hyperlipidemia, Morbid Obesity and Thyroid Disease Musc/skel Fibromyalgia, Lower Back Pain, Osteoarthritis/DJD and Scoliosis Neuropsych Anxiety, Cerebrovascular Accident (Was told she had a stroke, but states that her pain doctor told her it was an GA.) and Depression Bipolar Anesthetic Plan ASA status: 4 Anesthesia: Anesthesia Evaluation, General and MAC Risk of > 500 ml blood loss (7ml/kg in children): No Medications/Allergies Home Medications ?Medication ?Instructions ?Recorded ?Confirmed ?Last Taken ?Type aspirin 81 mg tablet,delayed 81 mg PO DAILY 09/27/19 09/04/24 09/01/24 06:00 History release (Adult Low Dose Aspirin) albuterol sulfate 2.5 mg/3 mL 2.5 mg (3 mL) inhalation Q6H PRN 03/24/23 09/04/24 2 Months Ago Rx (0.083 %) solution for nebulization shortness of breath or wheezing ~07/05/24 #150 vials pregabalin 150 mg capsule (Lyrica) 150 mg PO BID 07/09/23 09/04/24 08/27/24 15:00 History ibuprofen 600 mg tablet (IBU) 600 mg PO TID PRN pain 30 days #90 07/13/23 09/04/24 1 Week Ago Rx tabs ~08/28/24 epinephrine 0.3 mg/0.3 mL 0.3 mg (0.3 mL) IM Q4H PRN 07/21/23 09/04/24 Unknown Rx injection, auto-injector (EpiPen anaphylaxis #2 ea 2-Daron) atorvastatin 40 mg tablet 40 mg PO DAILY 90 days #90 tabs 10/18/23 09/04/24 09/05/24 06:00 Rx amlodipine 5 mg tablet 5 mg PO DAILY 90 days #90 tabs 11/09/23 09/04/24 09/05/24 19:00 Rx albuterol sulfate 90 mcg/actuation 1 inh inhalation QID PRN shortness 04/12/24 09/04/24 2 Months Ago Rx aerosol inhaler (Ventolin HFA) of breath or wheezing 30 days #18 ~07/05/24 grams lisinopril 10 1 tab PO DAILY 90 days #90 tabs 04/12/24 09/04/24 08/27/24 15:00 Rx mg-hydrochlorothiazide 12.5 mg tablet meloxicam 15 mg tablet 15 mg PO DAILY #90 tabs 04/12/24 09/04/24 08/27/24 15:00 Rx metoprolol succinate 50 mg 150 mg (3 x 50 mg) PO DAILY 90 04/12/24 09/04/24 08/27/24 15:00 Rx tablet,extended release 24 hr days #180 tabs pantoprazole 40 mg tablet,delayed 40 mg PO BID 90 days #180 tabs 04/12/24 09/04/24 08/27/24 15:00 Rx release promethazine 25 mg tablet 25 mg PO BID 90 days #180 tabs 04/12/24 09/04/24 08/27/24 15:00 Rx tirzepatide 2.5 mg/0.5 mL 2.5 mg (0.5 mL) SUBCUT Q7D 1 month 07/19/24 09/04/24 08/27/24 15:00 Rx subcutaneous pen injector #2.5 mL (Jaret) buspirone 10 mg tablet 10 mg PO TID #90 tabs 07/20/24 09/04/24 08/27/24 15:00 Rx paroxetine HCl 40 mg tablet 40 mg PO DAILY 30 days #30 tabs 07/20/24 09/04/24 08/27/24 15:00 Rx levothyroxine 75 mcg tablet 75 mcg PO DAILY 08/01/24 09/04/24 09/05/24 19:00 History mirtazapine 45 mg tablet 45 mg PO BEDTIME 08/01/24 09/04/24 08/27/24 15:00 History oxycodone-acetaminophen 10 mg-325 See Rx Instructions .Route .COMPLEX 08/01/24 09/04/24 08/27/24 15:00 History mg tablet ropinirole 1 mg tablet 1 mg PO BID 08/01/24 09/04/24 08/27/24 15:00 History linaclotide 145 mcg capsule 145 mcg PO DAILY 30 days #30 caps 08/15/24 09/04/24 09/05/24 06:00 Rx (Be) acarbose 100 mg tablet 100 mg PO TID 09/04/24 09/04/24 3 Weeks Ago History ~08/14/24 duloxetine 30 mg capsule,delayed 30 mg PO DAILY 09/04/24 09/04/24 09/04/24 History release duloxetine 60 mg capsule,delayed 60 mg PO DAILY 09/04/24 09/04/24 09/04/24 History release Allergies Allergy/AdvReac Type Severity Reaction Status Date / Time morphine Allergy Severe ADR-Agitate Verified 09/06/24 10:05 d quetiapine (From Seroquel) AdvReac Mild ADR-Halluci Verified 09/06/24 10:05 nating amitriptyline AdvReac Unknown ADR-Nightma Verified 09/06/24 10:05 re trazodone AdvReac ADR-Nightma Verified 09/06/24 10:05 re Current Medications Generic Name Dose Route Start Last Admin Trade Name Freq PRN Reason Stop Dose Admin Sodium Chloride 1,000 mls @ 15 mls/hr 09/06/24 09:42 09/06/24 10:30 Sodium Chloride 0.9% IV 09/07/24 09:41 15 mls/hr .Q24H PRN Administration COLONOSCOPY FLUIDS PFSH Anesthesia Medical History History of peptic ulcer disease Insomnia Psychiatric care Hypoxia COVID-19 Chronic migraine without aura Hypothyroidism Nicotine dependence, cigarettes, with other nicotine-induced disorders Obstructive sleep apnea (adult) (pediatric) Bipolar II disorder Restless leg syndrome COPD (chronic obstructive pulmonary disease) Bypass graft stenosis Subclavian artery GERD (gastroesophageal reflux disease) IBS (irritable bowel syndrome) FELIPA (generalized anxiety disorder) Bipolar affective disorder Hyperlipidemia Diabetes Does not tolerate metfromin. Subclavian arterial stenosis HOCM (hypertrophic obstructive cardiomyopathy) PVD (peripheral vascular disease) HTN (hypertension) Surgical History History of esophagogastroduodenoscopy (EGD) (~2014) History of colonoscopy (~2018) Tubal ligation status H/O: hysterectomy Family History Mother Cancer Father Cancer Social History Smoking and tobacco/nicotine status: former use of tobacco/nicotine Quit status (tobacco/nicotine): has tried quititng Second hand smoke exposure: No Alcohol intake: never Substance/Drug Use: never Adopted: No Caregiver/support person: Yes Lives independently: Yes Household members: significant other Housing: House Marital status: Life Partner Highest education level completed: High School Graduate service: No Current occupational status: disabled Current occupational exposures/hazards: No Pets and animals: No Sexually active: Yes Do you think of yourself as: Straight/Heterosexual Current gender identity: Female Yary/Orthodox: None Female Reproductive History Spontaneous abortions: No Data Anesthesia Cardiac Studies: Echocardiogram 04/07/24 Echocardiogram Ultrasound 04/07/19 Sestamibi Stress Test (Cardiology) 04/07/24 Cardiac Event Monitor 03/01/24
[2024-09-06 12:14] VITALS: BP 102/66; PULSE 56; RESP 14; TEMP 36.6; O2SAT 99
[2024-09-06 12:48] VITALS: BP 133/83; PULSE 65; RESP 16; O2SAT 94
--- NOTE | 2024-09-06 12:50 | ANE.PACU2 ---
Inpatient post-anesthesia follow up: Airway intact: Yes Vital signs: Temperature 97.8 F Pulse Rate 65 Respiratory Rate 16 Blood Pressure 133/83 Pulse Oximetry 94 Oxygen Delivery Me thod Room Air Oxygen Flow Rate 5 Fraction of Inspir ed Oxygen Hydration adequate: Yes Nausea and vomiting: No Pain level: 1 Mental status: Baseline
== END 2024-09-06 12:50 | disposition home or self-care (01) ==
PROVIDERS: PCP Family Medicine; Visit Provider Surgery
PROC: 0DJ08ZZ Inspection of Upper Intestinal Tract, Via Natural or Artificial Opening Endoscopic (ICD-10-PCS; principal; 2024-09-06 11:30)
PROC: 0DJD8ZZ Inspection of Lower Intestinal Tract, Via Natural or Artificial Opening Endoscopic (ICD-10-PCS; CPT 45378; 2024-09-06 11:30)
DX: Z12.11 Encounter for screening for malignant neoplasm of colon (principal); D12.5 Benign neoplasm of sigmoid colon; K27.9 Peptic ulcer, site unspecified, unspecified as acute or chronic, without hemorrhage or perforation; K29.00 Acute gastritis without bleeding; K29.50 Unspecified chronic gastritis without bleeding; K59.04 Chronic idiopathic constipation; J44.9 Chronic obstructive pulmonary disease, unspecified; Z99.81 Dependence on supplemental oxygen; I25.10 Atherosclerotic heart disease of native coronary artery without angina pectoris; I10 Essential (primary) hypertension; K21.9 Gastro-esophageal reflux disease without esophagitis; K44.9 Diaphragmatic hernia without obstruction or gangrene; E03.9 Hypothyroidism, unspecified; G47.33 Obstructive sleep apnea (adult) (pediatric); F41.1 Generalized anxiety disorder; G43.909 Migraine, unspecified, not intractable, without status migrainosus; E11.51 Type 2 diabetes mellitus with diabetic peripheral angiopathy without gangrene; F31.9 Bipolar disorder, unspecified; F17.210 Nicotine dependence, cigarettes, uncomplicated; E78.5 Hyperlipidemia, unspecified; Z68.36 Body mass index [BMI] 36.0-36.9, adult; Z79.899 Other long term (current) drug therapy; Z79.82 Long term (current) use of aspirin; Z79.85 Long-term (current) use of injectable non-insulin antidiabetic drugs; Z79.890 Hormone replacement therapy; Z88.5 Allergy status to narcotic agent; Z90.49 Acquired absence of other specified parts of digestive tract
CPT/HCPCS: 36416; 43239; 45385; 82962; 88305; 88342; J2704; J7030

== ENCOUNTER → 2024-09-19 11:22 | Outpatient (BNVA) | payer MEDICARE, MEDICAID, SELFPAY ==
[2024-04-13 09:47] VITALS: BP 126/56; BMI 37.5
== END ==
PROVIDERS: PCP Nurse Practitioner Family; Visit Provider Surgery
DX: Z09 Encounter for follow-up examination after completed treatment for conditions other than malignant neoplasm (principal); K59.09 Other constipation; K21.00 Gastro-esophageal reflux disease with esophagitis, without bleeding
CPT/HCPCS: 99213

== ENCOUNTER → 2024-10-05 10:32 | Outpatient (BNVA) | payer MEDICARE, MEDICAID, SELFPAY ==
[2024-04-13 09:47] VITALS: BP 126/56; BMI 37.5
== END ==
PROVIDERS: PCP Nurse Practitioner Family; Visit Provider Podiatrist Foot & Ankle Surgery
DX: E11.42 Type 2 diabetes mellitus with diabetic polyneuropathy (principal); B35.1 Tinea unguium; Z79.4 Long term (current) use of insulin; I73.9 Peripheral vascular disease, unspecified; G62.9 Polyneuropathy, unspecified
CPT/HCPCS: 11721

== ENCOUNTER → 2024-11-28 15:32 | Outpatient (BNVA) | payer OTHER, MEDICAID, SELFPAY ==
[2024-04-13 09:47] VITALS: BP 126/56; BMI 37.5
== END ==
PROVIDERS: PCP Nurse Practitioner Family; Visit Provider Orthopaedic Surgery
DX: M47.816 Spondylosis without myelopathy or radiculopathy, lumbar region (principal); G89.4 Chronic pain syndrome
CPT/HCPCS: 99213

== ENCOUNTER 2024-12-20 13:06 | Outpatient (CLI) | payer OTHER, MEDICAID, SELFPAY ==
[2024-04-13 09:47] VITALS: BP 126/56; BMI 37.5
--- NOTE | 2024-12-20 13:14 | MR_ITS ---
WS: [id number] MRI THORACIC SPINE WITHOUT CONTRAST TECHNIQUE: Sagittal T1, T2 and STIR imaging. Axial T2 imaging. Noncontrast imaging obtained. CLINICAL INFORMATION: THORACIC SPONDYLOSIS COMPARISON: 07/17/2024 FINDINGS: Moderate thoracic kyphosis. Few Schmorl's nodes in the mid and lower thoracic spine. No high-grade central canal stenosis. Cord signal is normal. No acute compression fractures. Moderate spondylitic changes. Moderate facet arthropathy lower thoracic spine. 3.9 x 3.2 cm RIGHT renal cyst. Adrenal glands are normal. Normal caliber descending thoracic aorta. MR/MR thoracic spin wo con* [id number] IMPRESSION: 1. Mild thoracic curve and kyphosis. 2. No acute compression fractures. 3. No high-grade central canal stenosis. Cord signal is normal. 4. Narrowing of the RIGHT subarticular recess T11-T12 due to disc osteophyte c omplex better appreciated on the recent thoracic spine CT 5. Moderate facet arthropathy lower thoracic spine.
== END 2024-12-20 13:07 | disposition home or self-care (01) ==
LOC: RAD 13:07
PROVIDERS: PCP Nurse Practitioner Family; Visit Provider Student in an Organized Health Care Education/Training Program
DX: M47.814 Spondylosis without myelopathy or radiculopathy, thoracic region (principal); M25.78 Osteophyte, vertebrae; M40.204 Unspecified kyphosis, thoracic region; N28.1 Cyst of kidney, acquired
CPT/HCPCS: 72146

== ENCOUNTER → 2025-02-23 13:24 | Outpatient (BNVA) | payer OTHER, MEDICAID, SELFPAY ==
[2024-04-13 09:47] VITALS: BP 126/56; BMI 37.5
== END ==
PROVIDERS: PCP Nurse Practitioner Family; Visit Provider Nurse Practitioner
DX: R05.9 Cough, unspecified (principal)
CPT/HCPCS: 87400; 87426

== ENCOUNTER → 2025-03-21 09:02 | Outpatient (BNVA) | payer OTHER, MEDICAID, SELFPAY ==
[2024-04-13 09:47] VITALS: BP 126/56; BMI 37.5
== END ==
PROVIDERS: Visit Provider Nurse Practitioner
DX: E11.42 Type 2 diabetes mellitus with diabetic polyneuropathy (principal); Z79.4 Long term (current) use of insulin
CPT/HCPCS: 83036